=== PATIENT | female | born 1955 | race Caucasian/White ===

== ENCOUNTER 2019-11-17 00:46 | Day surgery (SDC) | payer MEDICARE, OTHER, SELFPAY ==
[2019-11-11 10:37] VITALS: BMI 29.9
[2019-11-17 08:50] VITALS: BP 158/84; PULSE 81; RESP 14; TEMP 37; O2SAT 94; BMI 28.5
--- NOTE | 2019-11-17 09:02 | PM.HPGS ---
History of Present Illness History of Present Illness Consent: Risks, benefits, and alternatives have been discussed and questions answered. Patient agrees to proceed with procedure. Chief complaint: GERD Narrative: Ewelina Codnon is a 64 year old W female referred for EGD for a 4 week history of postprandial nausea without vomiting. Patient with occasional heartburn. No melena. Patient does take prune 25 mg aspirin on daily basis. She is on multiple medicines with be outlined below. She states she has never had a gastroscopy in the past. Patient was last seen by myself July 2019. Patient went colonoscopy at that time which was normal. Meds Home Medications and Allergies Home Medications Medication Instructions Recorded Confirmed Type aspirin 325 mg PO DAILY 11/11/19 11/17/19 History atorvastatin 40 mg PO DAILY 11/11/19 11/17/19 History fenofibric acid (choline) 135 mg PO DAILY 11/11/19 11/17/19 History fluticasone propionate [Flonase 1 spray INTRANASAL DAILY 11/11/19 11/17/19 History Allergy Relief] levothyroxine 50 mcg PO DAILY 11/11/19 11/17/19 History lisinopril 2.5 mg PO DAILY 11/11/19 11/17/19 History lorazepam 1 mg PO TID PRN 11/11/19 11/17/19 History pantoprazole 40 mg PO BID 11/11/19 11/17/19 History trazodone 100 mg PO DAILY 11/11/19 11/17/19 History venlafaxine 150 mg PO DAILY 11/11/19 11/17/19 History Allergies Allergy/AdvReac Type Severity Reaction Status Date / Time No Known Allergies Allergy Verified 11/17/19 08:47 Vital Signs Vital Signs - 24 hr 11/17/19 08:50 Temperature 37.0 C Pulse Rate 81 Respiratory Rate 14 Blood Pressure 158/84 H Pulse Oximetry 94 Exam Const: Orientation/consciousness: patient oriented x3 Resp: Auscultation: clear to auscultation bilaterally Cardio: Rate: regular rate Rhythm: regular rhythm Heart sounds: no murmurs GI: GI Palp: Yes Soft to palpation, No Tenderness to palpation present (GI), Yes No hepatosplenomegaly present and No Palpable mass present Auscultation: normal bowel sounds Neuro: General: patient oriented x3 and no focal motor deficits Extrem: General: no pedal edema Assessment and Plan Additional Plan EGD for evaluation of postprandial nausea/ indigestion.
[2019-11-17] MEDS: LACTATED RINGERS 1,000 ML 150 ML IV CONT (09:08)
--- NOTE | 2019-11-17 09:21 | WPDANESEPPF ---
Anes - Initial Pre Proc Eval Procedure: Operation Date: 11/17/19 10:00 Proposed Procedures p Esophagogastroduodenoscopy - Silvano Jones MD Date/Time: 11/17/19 09:21 Surgeon: Silvano Jones MD Pre Op Diagnosis: GERD Patient Data Age: 64 Gender: F Height: 5 ft 4 in Weight: 75.3 kg Last Vital Signs Temp 37.0 C 11/17/19 08:50 Pulse 81 11/17/19 08:50 Resp 14 11/17/19 08:50 BP 158/84 H 11/17/19 08:50 Pulse Ox 94 11/17/19 08:50 Allergies Allergy/AdvReac Type Severity Reaction Status Date / Time No Known Allergies Allergy Verified 11/17/19 08:47 Home Medications Medication Instructions Recorded Confirmed Type aspirin 325 mg PO DAILY 11/11/19 11/17/19 History atorvastatin 40 mg PO DAILY 11/11/19 11/17/19 History fenofibric acid (choline) 135 mg PO DAILY 11/11/19 11/17/19 History fluticasone propionate [Flonase 1 spray INTRANASAL DAILY 11/11/19 11/17/19 History Allergy Relief] levothyroxine 50 mcg PO DAILY 11/11/19 11/17/19 History lisinopril 2.5 mg PO DAILY 11/11/19 11/17/19 History lorazepam 1 mg PO TID PRN 11/11/19 11/17/19 History pantoprazole 40 mg PO BID 11/11/19 11/17/19 History trazodone 100 mg PO DAILY 11/11/19 11/17/19 History venlafaxine 150 mg PO DAILY 11/11/19 11/17/19 History Patient hx anesthesia problems: none Family hx anesthesia problems: none PMFSH Past Medical History Medical History Anxiety Depression GERD (gastroesophageal reflux disease) Hyperlipidemia Hypertension Hypothyroid Anes - Eval Final PreProcedure Day of Procedure 11/17/19 09:21 Patient weight: overweight Heart: regular rate and rhythm Lungs: clear to auscultation Airway: Mallampati scale class II Neurological: alert and oriented Last oral intake: >/= 8 hours ASA classification: III Emergent: no Anesthetic plan: proceed Anesthesia type and monitoring: general GIVS and standard monitoring Informed Consent: The patient's anesthetic plan and its attendant risks and benefits were discussed with the patient/family/POA. Questions were solicited and answers provided to the satisfaction of the patient/family/POA.
[2019-11-17 09:57] VITALS: BP 140/79; PULSE 65; RESP 22; O2SAT 99
[2019-11-17 10:07] VITALS: BP 161/88; PULSE 58; RESP 22; O2SAT 99
[2019-11-17 10:17] VITALS: BP 173/83; PULSE 61; RESP 21; O2SAT 99
== END 2019-11-17 10:34 | disposition home or self-care (01) ==
PROVIDERS: PCP Internal Medicine; Visit Provider Internal Medicine Gastroenterology
PROC: 0DJ08ZZ Inspection of Upper Intestinal Tract, Via Natural or Artificial Opening Endoscopic (ICD-10-PCS; CPT 43235; principal; 2019-11-17 10:00)
DX: K21.0 Gastro-esophageal reflux disease with esophagitis (principal); K29.50 Unspecified chronic gastritis without bleeding; Z79.82 Long term (current) use of aspirin
CPT/HCPCS: 43239; 88305; J2704; J7120

== ENCOUNTER 2019-11-24 10:54 | Outpatient (CLI) | payer MEDICARE, OTHER, SELFPAY ==
--- NOTE | ~2019-11-24 | US_ITS ---
EXAMINATION: US right upper quadrant EXAM DATE: 11/24/2019 11:44 INDICATION: Dyspepsia. TECHNIQUE: Multiple grayscale and Doppler images of the abdomen right upper quadrant were obtained (b y a technologist who performed the scan) and subsequently reviewed. Correlation is made to kidney ult rasound 01/12/2014. FINDINGS: The pancreatic head and body are normal in appearance. The pancreatic tail is not visualized. The l iver has normal echogenicity and contour. Anechoic approximately 2 cm liver region consistent with c yst. There is no evidence of intrahepatic biliary duct dilation. Portal venous flow was seen in the hepatopedal, normal direction and has normal Doppler waveform. No right-sided hydronephrosis. Common bile duct measures 3 mm, which is normal. The gallbladder wall is normal in thickness, with ex pected amount of distention. No sonographic evidence of pericholecystic fluid. There is no cholelit hiases. Technologist performing exam reports patient did not demonstrate sonographic Valladares's sign. Please note that this sign is less reliable in patients who have received pain medication. IMPRESSION: 1. Unremarkable abdominal ultrasound exam. Reviewed, dictated and finalized at location A. 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
== END 2019-11-24 10:55 | disposition home or self-care (01) ==
LOC: ANHIMG 11:03
PROVIDERS: PCP Internal Medicine; Visit Provider Internal Medicine Gastroenterology
DX: R10.13 Epigastric pain (principal)
CPT/HCPCS: 76705

== ENCOUNTER 2020-04-21 10:49 | Emergency (ER) | payer MEDICARE, OTHER, SELFPAY ==
[2020-04-21 11:04] VITALS: BP 155/83; PULSE 89; RESP 16; TEMP 37.1; O2SAT 98
--- NOTE | 2020-04-21 11:10 | ED.GENADULT ---
HPI - General Adult General Chief complaint: Extremity Injury, Lower Stated complaint: Injury left leg Time Seen by Provider: 04/21/20 11:10 Source: patient and RN notes reviewed Mode of arrival: ambulatory Limitations: no limitations History of Present Illness HPI narrative: 64-year-old female presents with complaints of left anterior leg, bruising, swelling, and pain for the past 1.5 weeks. Tyenol intermittently, last this morning at 06:00 with some relief. Ewelina says she hit her leg on a coffee table and has been walking around yard for exercise, went to [place] yesterday which increased her pain. Denies radiation of pain. No numbness or tingling or bleeding. No swelling. No loss of mobility. Exacerbating factor consist of bearing weight to leg while walking. Denies recent travel or long car rides. History of DVT or PE. No chest pain or dyspnea. Postmenopausal. Remains active. The patient reports she have not been diagnosed with COVID-19. The patient reports she is not waiting for the results of a COVID-19 lab test. The patient reports she do not have fever, chills, weakness, fatigue, or myalgia. The patient reports she do not have a new or worsening cough or shortness of breath. Denies chest pain. The patient reports she do not have any rhinorrhea, congestion, sore throat, nausea, vomiting, abdominal pain, and diarrhea. Tolerating po intake well. Denies recent traveling. Denies concerns for COVID-19 or exposures been home with limited outdoor exposure except for essential household needs and return home. At this time, patient is not suspected of having COVID-19. Some parts of this dictation were generated by voice recognition software and may contain typographical and/or grammatical inaccuracies. Related Data Home Medications Medication Instructions Recorded Confirmed aspirin 325 mg PO DAILY 04/21/20 04/21/20 atorvastatin [Lipitor] 40 mg PO DAILY 04/21/20 04/21/20 fenofibrate micronized 134 mg PO DAILY 04/21/20 04/21/20 levothyroxine 50 mcg PO DAILY 04/21/20 04/21/20 lisinopril [Zestril] 10 mg PO DAILY 04/21/20 04/21/20 lorazepam [Ativan] 2 mg PO BID 04/21/20 04/21/20 pantoprazole [Protonix] 40 mg PO BID 04/21/20 04/21/20 trazodone 100 mg PO BID 04/21/20 04/21/20 venlafaxine [Effexor XR] 300 mg PO HS 04/21/20 04/21/20 Allergies Allergy/AdvReac Type Severity Reaction Status Date / Time No Known Allergies Allergy Verified 04/21/20 11:12 Review of Systems Review of Systems: Narrative: CONSTITUTIONAL: Denies fever, chills, sweats. EYES: Denies visual changes, redness, discharge. ENT: Denies rhinorrhea, congestion, sore throat, otalgia. CARDIOVASCULAR: Denies chest pain, palpitations, edema. RESPIRATORY: Denies dyspnea, wheezing, cough. GASTROINTESTINAL: Denies abdominal pain, nausea, vomiting, diarrhea. GENITOURINARY: Denies dysuria, hematuria, abnormal discharge. SKIN: Denies rash or itching. MUSCULOSKELETAL: Denies acute back pain or myalgia. Complains of LT anterior leg bruising, pain, and swelling. NEUROLOGIC: Denies numbness or focal weakness. PSYCHIATRIC: Denies anxiety or depression. All other systems reviewed are negative, except as documented in HPI and below. [facility] Past Medical History Medical History (Updated 04/22/20 @ 00:00 by Background Daemon) Anxiety Depression GERD (gastroesophageal reflux disease) Hyperlipidemia Hypertension Hypothyroid Surgical History Surgical History (Updated 04/21/20 @ 11:26 by MANOHAR Crouch) History of left knee surgery Family History Family History (Updated 04/21/20 @ 11:26 by MANOHAR Crouch) Father Heart disease Acute myocardial infarction Mother Heart disease Social History Social History (Updated 04/21/20 @ 11:28 by MANOHAR Crouch) Smoking status: Former smoker Smoking end date: 12/20/19 Alcohol intake: former Alcohol use details: cleaned for 7 years Substance use: current Gay
== END 2020-04-21 11:37 | disposition home or self-care (01) ==
PROVIDERS: Emergency Provider Nurse Practitioner Family; PCP Internal Medicine
DX: S80.12XA Contusion of left lower leg, initial encounter (principal); W22.8XXA Striking against or struck by other objects, initial encounter; I10 Essential (primary) hypertension; E03.9 Hypothyroidism, unspecified
CPT/HCPCS: 99213; G0463

== ENCOUNTER → 2020-07-10 11:29 | Outpatient (CLI) | payer MEDICARE, OTHER, SELFPAY ==
--- NOTE | ~2020-07-10 | MM_ITS ---
EXAMINATION: MM screening alycia BI w kota HISTORY: Screening mammogram TECHNIQUE: Craniocaudal and mediolateral oblique 3-D tomosynthesis images were obtained and synthetic 2-D images were generated. CAD analysis was submitted and interpreted. COMPARISON: 05/08/2019, 02/02/2018, 12/24/2016 bilateral digital screening mammogram examinations BREAST PARENCHYMAL COMPOSITION: There are scattered areas of fibroglandular density. FINDINGS: Scattered bilateral benign calcifications. There is no evidence of suspicious mass, calcifi cation, or architectural distortion to suggest malignancy in either breast. There has been no suspici ous interval change. IMPRESSION: 1. No mammographic evidence of malignancy. 2. Recommend routine screening mammography in one year. BI-RADS Category 2: Benign finding(s). Reviewed, dictated and finalized at location A.
== END ==
PROVIDERS: Visit Provider Obstetrics & Gynecology Gynecology
DX: Z12.31 Encounter for screening mammogram for malignant neoplasm of breast (principal)
CPT/HCPCS: 77063; 77067

== ENCOUNTER → 2021-07-12 10:12 | Outpatient (CLI) | payer MEDICARE, OTHER, SELFPAY ==
--- NOTE | ~2021-07-12 | DEXA_ITS ---
Bone Density Report Name: Ewelina Condon Age: 65 Sex: Female Ethnicity: White Date of : 1955 Indication: postmenopausal osteoporosis; height loss; Referring Provider: ANGELICA RODRIGUEZ Study: Bone densitometry was performed. Exam Date: July 12, 2021 Accession number: [id number] Bone Density: Region BMD T-score Z-score Classification AP Spine (L3, L4) 0.783 -2.9 -1.1 Osteoporosis Femoral Neck (Left) 0.629 -2.0 -0.5 Osteopenia Total Hip (Left) 0.934 -0.1 1.1 Normal Femoral Neck (Right) 0.776 -0.7 0.8 Normal Total Hip (Right) 0.883 -0.5 0.7 Normal Total Hip Mean 0.909 -0.3 0.9 Normal World Health Organization criteria for BMD impression classify patients as: Normal (T-score at or above -1.0), Osteopenia (T-score between -1.0 and -2.5), or Osteoporosis (T-score at or below -2.5). 10-year Fracture Risk: FRAX not reported because: Some T-score for Spine Total or Hip Total or Femoral Neck at or below -2.5 Previous Exams: Region Exam Age BMD T-score BMD Change BMD Change Date g/cm2 vs Baseline vs Previous AP Spine(L3, L4) 07/12/2021 65 0.783 -2.9 -0.151* -0.016 04/21/2019 63 0.800 -2.7 -0.135* -0.134 12/24/2016 61 0.933 -1.5 -0.002 -0.002 02/22/2013 57 0.935 -1.5 Total Hip(Left) 07/12/2021 65 0.934 -0.1 0.108* 0.011 04/21/2019 63 0.923 -0.2 0.097* -0.064 12/24/2016 61 0.987 0.4 0.161 0.161 02/22/2013 57 0.826 -0.9 Total Hip(Right) 07/12/2021 65 0.883 -0.5 0.057* 0.050* 04/21/2019 63 0.833 -0.9 0.007 -0.038 12/24/2016 61 0.872 -0.6 0.045 0.045 02/22/2013 57 0.826 -0.9 *Denotes significance at 95% confidence level, LSC for AP Spine = 0.022 g/cm2, LSC for Total Hip = 0.027 g/cm2 Clinical Information Provided by Patient: Has used the following medications: Prolia (i.e. denosumab), Vitamin D, Calcium Patient maximum height was 64 Menopause Age: 52 No regular weight bearing exercise Does not regularly consume dairy products Drinks caffeinated beverages Onset of menses at age 12 Number of children 2 Impression: The patient has osteoporosis, based on the Total Spine T-score. No significant bone loss was observed. Discussion: INCREASED RISK OF FRACTURE. BONE DENSITY IS UNDESIRABLY LOW AT ONE OR MORE SKELETAL SITES, CONSIS
--- NOTE | ~2021-07-12 | MM_ITS ---
EXAMINATION: MM screening alycia BI w kota HISTORY: Screening mammogram TECHNIQUE: Craniocaudal and mediolateral oblique 3-D tomosynthesis images were obtained and synthetic 2-D images were generated. CAD analysis was submitted and interpreted. COMPARISON: 07/10/2020, 05/08/2019, 02/02/2018 bilateral digital screening mammogram examinations BREAST PARENCHYMAL COMPOSITION: There are scattered areas of fibroglandular density. FINDINGS: Again noted are scattered bilateral benign calcifications. There is no evidence of suspicio us mass, calcification, or architectural distortion to suggest malignancy in either breast. There has been no suspicious interval change. IMPRESSION: 1. No mammographic evidence of malignancy. 2. Recommend routine screening mammography in one year. BI-RADS Category 2: Benign finding(s). Reviewed, dictated and finalized at location A.
== END ==
PROVIDERS: Visit Provider Obstetrics & Gynecology Gynecology
DX: Z12.31 Encounter for screening mammogram for malignant neoplasm of breast (principal); Z78.0 Asymptomatic menopausal state; M81.0 Age-related osteoporosis without current pathological fracture; M85.852 Other specified disorders of bone density and structure, left thigh
CPT/HCPCS: 77063; 77067; 77080

== ENCOUNTER → 2022-10-16 14:44 | Outpatient (CLI) | payer MEDICARE, SELFPAY ==
--- NOTE | ~2022-10-16 | MM_ITS ---
EXAMINATION: MM screening alycia BI w kota HISTORY: Screening mammogram TECHNIQUE: Craniocaudal and mediolateral oblique 3-D tomosynthesis images were obtained and synthetic 2-D images were generated. CAD analysis was submitted and interpreted. COMPARISON: 07/12/2021, 07/10/2020, 04/21/2019 bilateral screening mammogram examinations BREAST PARENCHYMAL COMPOSITION: There are scattered areas of fibroglandular density. FINDINGS: Scattered bilateral benign calcifications. There is no evidence of suspicious mass, calcifi cation, or architectural distortion to suggest malignancy in either breast. There has been no suspici ous interval change. IMPRESSION: 1. No mammographic evidence of malignancy. 2. Recommend routine screening mammography in one year. BI-RADS Category 2: Benign finding(s). Reviewed, dictated and finalized at location A. SSORIES REPAIRER
== END ==
PROVIDERS: PCP Internal Medicine; Visit Provider Obstetrics & Gynecology Gynecology
DX: Z12.31 Encounter for screening mammogram for malignant neoplasm of breast (principal)
CPT/HCPCS: 77063; 77067

== ENCOUNTER → 2023-09-30 11:00 | Outpatient (CLI) | payer MEDICARE, BC, SELFPAY ==
--- NOTE | ~2023-09-30 | DEXA_ITS ---
Bone Density Report Name: SAL HERNANDEZ Age: 68 Sex: Female Ethnicity: White Date of : 1955 Indication: postmenopausal osteoporosis; monitoring treatment; height loss; Referring Provider: ANGELICA RODRIGUEZ Study: Bone densitometry was performed. Exam Date: September 30, 2023 Accession number: [id number] Bone Density: Region BMD T-score Z-score Classification AP Spine (L3, L4) 0.892 -1.9 0.0 Osteopenia Femoral Neck (Left) 0.630 -2.0 -0.4 Osteopenia Total Hip (Left) 0.924 -0.1 1.1 Normal Femoral Neck (Right) 0.776 -0.7 0.9 Normal Total Hip (Right) 0.924 -0.1 1.1 Normal Total Hip Mean 0.924 -0.1 1.1 Normal World Health Organization criteria for BMD impression classify patients as: Normal (T-score at or above -1.0), Osteopenia (T-score between -1.0 and -2.5), or Osteoporosis (T-score at or below -2.5). 10-year Fracture Risk: FRAX not reported because: Treated for osteoporosis Previous Exams: Region Exam Age BMD T-score BMD Change BMD Change Date g/cm2 vs Baseline vs Previous AP Spine(L3, L4) 09/30/2023 68 0.892 -1.9 -0.042 0.109 07/12/2021 65 0.783 -2.9 -0.151* -0.016 04/21/2019 63 0.800 -2.7 -0.135* -0.134 12/24/2016 61 0.933 -1.5 -0.002 -0.002 02/22/2013 57 0.935 -1.5 Total Hip(Left) 09/30/2023 68 0.924 -0.1 0.098 -0.010 07/12/2021 65 0.934 -0.1 0.108* 0.011 04/21/2019 63 0.923 -0.2 0.097* -0.064 12/24/2016 61 0.987 0.4 0.161 0.161 02/22/2013 57 0.826 -0.9 Total Hip(Right) 09/30/2023 68 0.924 -0.1 0.098 0.041 07/12/2021 65 0.883 -0.5 0.057* 0.050* 04/21/2019 63 0.833 -0.9 0.007 -0.038 12/24/2016 61 0.872 -0.6 0.045 0.045 02/22/2013 57 0.826 -0.9 *Denotes significance at 95% confidence level, LSC for AP Spine = 0.022 g/cm2, LSC for Total Hip = 0.027 g/cm2 Clinical Information Provided by Patient: Is being treated for osteoporosis Has used the following medications: Prolia (i.e. denosumab), LEVOTHYROXINE Patient maximum height was 64.0 Menopause Age: 52 No regular weight bearing exercise Does not regularly consume dairy products Drinks caffeinated beverages Onset of menses at age 12 Number of children 2 Impression: The patient has lo
== END ==
PROVIDERS: PCP Internal Medicine; Visit Provider Obstetrics & Gynecology Gynecology
DX: M81.0 Age-related osteoporosis without current pathological fracture (principal); M85.89 Other specified disorders of bone density and structure, multiple sites; Z78.0 Asymptomatic menopausal state
CPT/HCPCS: 77080

== ENCOUNTER → 2023-10-21 10:17 | Outpatient (CLI) | payer MEDICARE, BC, SELFPAY ==
--- NOTE | ~2023-10-21 | MM_ITS ---
EXAMINATION: MM screening alycia BI w kota HISTORY: Screening mammogram TECHNIQUE: Craniocaudal and mediolateral oblique 3-D tomosynthesis images were obtained and synthetic 2-D images were generated. CAD analysis was submitted and interpreted. COMPARISON: 10/16/2022, 07/12/2021, 07/10/2020 BREAST PARENCHYMAL COMPOSITION: There are scattered areas of fibroglandular density. FINDINGS: Scattered benign-appearing calcifications are present. No suspicious mass, calcification, o r architectural distortion are identified in either breast to suggest malignancy. There has been no s uspicious interval change. IMPRESSION: 1. No mammographic evidence of malignancy. 2. Recommend routine screening mammography in one year. BI-RADS Category 2: Benign finding(s). Reviewed, dictated and finalized at location A. 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
== END ==
PROVIDERS: PCP Obstetrics & Gynecology Gynecology; Visit Provider Obstetrics & Gynecology Gynecology
DX: Z12.31 Encounter for screening mammogram for malignant neoplasm of breast (principal)
CPT/HCPCS: 77063; 77067

== ENCOUNTER 2024-08-25 11:21 | Outpatient (CLI) | payer MEDICARE, SELFPAY ==
--- NOTE | ~2024-08-25 | XR_ITS ---
Right Knee Technique: AP, lateral, and sunrise views were obtained. Clinical History: Pain Findings: No fracture or dislocation is seen. There is medial compartment narrowing. There is moderat e to advanced tricompartmental osteophyte formation. There is patellofemoral compartment narrowing.. Soft tissues are unremarkable. No joint effusion is seen. Impression: Advanced tricompartment osteoarthritis, as detailed above. Reviewed, dictated and finalized at location M. E ENGINEER Impression: Advanced tricompartment osteoarthritis, as detailed above.
== END 2024-08-25 11:22 | disposition home or self-care (01) ==
PROVIDERS: PCP Internal Medicine; Visit Provider Physician Assistant Surgical
DX: M17.11 Unilateral primary osteoarthritis, right knee (principal)
CPT/HCPCS: 73564

== ENCOUNTER 2024-12-13 10:33 | Outpatient (CLI) | payer MEDICARE, SELFPAY ==
--- NOTE | ~2024-12-13 | CT_ITS ---
EXAMINATION: CT LE RT wo con DATE: 12/13/2024 10:54 INDICATION: Right knee osteoarthritis. Preop. TECHNIQUE: Computed tomography (CT) of the right lower limb was performed without intravenous contras t. Automated exposure control and iterative reconstruction technique were employed. The dose-length p roduct was 1759.84 mGy-cm. COMPARISON: Right knee radiographs 08/25/2024 FINDINGS: There is varus angulation at the knee. There is severe hallux valgus. There is varus angula tion at second metatarsophalangeal joint. No fracture. There is mild right hip osteoarthritis. Right knee demonstrates severe osteoarthritis of the medial and patellofemoral compartments and moderate os teoarthritis of lateral compartment. There is a moderate-sized knee joint effusion. There is a small Henderson's cyst. IMPRESSION: 1. Severe right knee osteoarthritis. 2. Moderate-sized right knee joint effusion. 3. Small right Henderson's cyst. Reviewed, dictated and finalized at location A. M TAKER
--- OUTSIDE RECORDS SUMMARY | 2024-12-13 11:57 | XMS_ITS | Encounter Summary ---
Author Organization [facility] [facility] Address [address] [place] [address] Phone Care Team Providers Care Adjunct Instructor Of Women'S Studies Name Role Phone Unavailable Primary Care Provider Unavailabl e Reason for Visit * Reason Onset Date Comments Med Refill 08/17/2024 Encounter Details Date Type Department Care Team (Late st Contact Info) Description 08/17/2024 Refill [place] [employer] [facility] [address] [place] [address] Preeti Jensen CMA [address] [facility] [address] [place] [address] Social History Tobacco Use Types Packs/Day Years Used Date Smoking Tobacco: Former Cigarettes Q uit: 2020 Smokeless Tobacco: Never Alcohol Use Standard Drinks/Week Comments No 0 (1 standard drink = 0.6 oz pur e alcohol) Comments Unknown Sex and Gender Information Value Date Recorded Sex Assigned at Not on file Legal Sex Female 2:52 PM EDT Gender Identity Not on file Sexual Orientation Not on file documented as of this encounter Plan of Treatment Upcoming Encounters Date Type Department Care Team (Late st Contact Info) Description 12/14/2024 11:00 AM SENIOR WATER RESOURCES 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
--- OUTSIDE RECORDS SUMMARY | 2024-12-13 11:57 | XMS_ITS | CONTINUITY OF CARE DOCUMENT ---
Author Name marco a strickland Address Unknown Organization [facility] Address [address] [address] [address] [place] [address] Phone [phone] Care Team Providers Care Fishing Rod Trimmer Name Role Phone Ethan VALLES, Gallo Unavailable [phone] BRIA VALLES, ARCHIE Unavailable [phone] ARCHIE FRASER MD Unavailable [phone] PROBLEMS Condition Status Date Provider Notes Blood glucose abnormal active Brad Starkey RN CAD active Gallo Long MD HTN-07/28 ECHO EF 55 3 ECH O EF 60 completed - Homero Key MD OBESITY active Gallo Long MD CAROTID-12/26 CAROTID UNCHANG E 08/24 CAROTID NEG completed - Homero Key MD CHEST PAIN-07/28 NUC NEG NUC NEG completed - Homero Key MD TOBACCO ABUSE active ? Gallo Long MD Hyperlipidemia active Ewelina Ricks RN AMI, SUBENDOCARDIAL;100% DX 03 ONLY active Homero Key MD FAMILY HISTORY OF HEART DISEASE active Rosemarie Key MD DIASTOLIC DYSFUNCTION active Gallo Long MD ISCHEMIA;NEG NUC 2009 completed - Gallo Long MD CHEST PAIN active Gallo Long MD SNORING; active Homero Key MD Family History Coronary Hear t Disease male < 55: active ? Gallo Long MD ENCOUNTERS Date Type Provider Location Encounter Diag nosis - In-person encounter Office Visit Gallo Long MD [facility] - In-person encounter Office Visit Gallo Long MD [facility] - In-person encounter Office Visit Gallo Long MD [facility] - In-person encounter Office Visit Gallo Long MD [facility] - In-person encounter Office Visit Gallo Long MD [facility] - In-person encounter Office Visit Gallo Long MD [facility] - In-person encounter Office Visit Gallo Long MD [facility] - In-person encounter Office Visit Gallo Long MD [facility] - In-person encounter Office Visit Gallo Long MD [facility] - In-person encounter Office Visit Gallo Long MD [facility] CADOBESITYDIASTOLIC DYSFUNCTIONISCHEMIA;NEG NUC 2010CHEST PAIN - In-person encounter Office Visit Gallo Long MD [facility] - In-person encounter Office Visit Gallo Long MD [facility] - In-person encounter Office Visit Gallo Long MD [facility] Family History Coronary Heart Disease male < 55: - In-person encounter Office Visit Gallo Long MD [facility] - In-person encounter Office Visit Homero Key MD [facility] CADHTN-07/28 ECHO EF 55 3 ECHO EF 60OBESITYCAROTID-12/26 CAROTID UNCHANGE 08/24 CAROTID NEGCHEST PAIN-07/28 NUC NEG 12/24 NUC NEGAMI, SUBENDOCARDIAL;100% DX 03 ONLYFAMILY HISTORY OF HEART DISEASEDIASTOLIC DYSFUNCTIONCHEST PAINSNORING; - In-person encounter Office Visit Gallo Long MD [facility] - In-person encounter Office Visit Gallo Long MD [facility] - In-person encounter Office Visit Gallo Long MD [facility] - In-person encounter Office Visit Gallo Long MD [facility] - In-person encounter Office Visit Gallo Long MD [facility] TOBACCO ABUSEHyperlipidemia - In-person encounter Office Visit Gallo Long MD [facility] - In-person encounter Office Visit Gallo Long MD [facility] VITAL SIGNS Date Observation Value Provider Body Mass Index (Ratio) 32.78 kg/m2 Felice Long MD blood pressure, diastolic 79 mm[Hg] Reina Grace blood pressure, systolic 127 mm[Hg] [place] danellenithin Grace oxygen saturation, oximetry 96 % Stephanie Grace respiratory rate E&M 14 /min Stephanie Grace pulse rate 90 /min Stephanie Grace weight E&M 191 [lb_av] Stephanie Grace height E&M 64 [in_i] [facility] size regular orvillesanket Grace Body Mass Index (Ratio) 34.33 kg/m2 Felice Long MD blood pressure, diastolic 78 mm[Hg] Carrie nkLogmiky blood pressure, systolic 118 mm[Hg] Jennifer kLog blood pressure, cuff size regular Ja rret blood pressure, diastolic 78 mm[Hg] Ja rret blood pressure, systolic 118 mm[Hg] Jar ret pulse rate 76 /min Cliff y weight E&M 200 [lb_av] Cliff y oxygen saturation, oximetry 94 % Cliff respiratory rate E&M 12 /min Cliff height E&M 64 [in_i] Cliff y Body Mass Index (Ratio) 34.43 kg/m2 Felice Long MD blood pressure, diastolic 83 mm[Hg] St ulises Paz blood pressure, systolic 140 mm[Hg] Parish Paz oxygen saturation, oximetry 96 % Veronica Paz respiratory rate E&M 16 /min Veronica jensen pulse rate 83 /min Veronica Paz weight E&M 200.6 [lb_av] Veronica Paz height E&M 64 [in_i] Vreonica Paz Body Mass Index (Ratio) 35.87 kg/m2 Felice Long MD blood pressure, diastolic 80 mm[Hg] Carrie sonLogmiky blood pressure, systolic 126 mm[Hg] Jennifer Souza blood pressure, diastolic 80 mm[Hg] Dominga Hart blood pressure, systolic 126 mm[Hg] Melonie Hart blood pressure, cuff size regular Dominga Hart oxygen saturation, oximetry 96 % Zandra Hart respiratory rate E&M 16 /min Saúl Hart pulse rate 76 /min Meloniejuandaryn puckett weight E&M 209 [lb_av] Zandra puckett height E&M 64 [in_i] Zandra puckett Body Mass Index (Ratio) 33.81 kg/m2 Felice Long MD blood pressure, diastolic 82 mm[Hg] Tao Ceja blood pressure, systolic 140 mm[Hg] Ginger Ceja blood pressure, cuff size regular Tao Ceja pulse rate 83 /min Luciana burgos respiratory rate E&M 16 /min Luciana Ceja oxygen saturation, oximetry 96 % Luciana Ceja weight E&M 197 [lb_av] Luciana burgos height E&M 64 [in_i] Luciana burgos Body Mass Index (Ratio) 30.55 kg/m2 Felice Long MD blood pressure, cuff size regular Tao Ceja blood pressure, diastolic 70 mm[Hg] Tao Ceja blood pressure, systolic 110 mm[Hg] Ginger Ceja pulse rate 97 /min Luciana burgos oxygen saturation, oximetry 95 % Luciana Ceja respiratory rate E&M 16 /min Luciana Ceja weight E&M 178 [lb_av] Luciana burgos height E&M 64 [in_i] Luciana burgos Body Mass Index (Ratio) 34.67 kg/m2 Felice Long MD blood pressure, diastolic 80 mm[Hg] Da alison Elle blood pressure, systolic 128 mm[Hg] Dac ia Elle oxygen saturation, oximetry 91 % Jesika Elle respiratory rate E&M 18 /min Jesika V oss pulse rate 83 /min Jesika Elle weight E&M 202 [lb_av] Jesika Elle height E&M 64 [in_i] Jesika Elle Body Mass Index (Ratio) 36.52 kg/m2 Felice Long MD blood pressure, resting No Ewelina Lomas blood pressure, diastolic 90 mm[Hg] Rodriguez Lomas blood pressure, systolic 139 mm[Hg] Erika Lomas oxygen saturation, oximetry 95 % Usama Lomas respiratory rate E&M 20 /min Fidel Lomas pulse rate 96 /min Usama diana weight E&M 212.8 [lb_av] Usama baxter height E&M 64 [in_i] Usama diana blood pressure, diastolic 90 mm[Hg] Rodriguez Lomas blood pressure, systolic 142 mm[Hg] Erika Lomas pulse rate 102 /min Usama diana oxygen saturation, oximetry 94 % Usama Lomas respiratory rate E&M 16 /min Fidel Lomas Body Mass Index (Ratio) 37.45 kg/m2 Ewelina Lomas weight E&M 218.2 [lb_av] Usama baxter blood pressure, diastolic 80 mm[Hg] Me mansfield Charles blood pressure, systolic 131 mm[Hg] Antoinette morejon Charles pulse rate 92 /min Cheri Charles oxygen saturation, oximetry 95 % Cheri Charles respiratory rate E&M 15 /min Cheri Charles Body Mass Index (Ratio) 34.67 kg/m2 Iveth peterson Charles weight E&M 202 [lb_av] Cheri Charles Body Mass Index (Ratio) 34.33 kg/m2 Anea rola [place] blood pressure, diastolic 85 mm[Hg] An eatris [place] blood pressure, systolic 127 mm[Hg] Ane atris [place] pulse rate 94 /min Aneatris Brown oxygen saturation, oximetry 98 % Aneatris [place] respiratory rate E&M 18 /min Aneatri s [place] weight E&M 200 [lb_av] Aneatris [place] Body Mass Index (Ratio) 33.81 kg/m2 Kanwala rola Brink blood pressure, diastolic 75 mm[Hg] An ad Brink blood pressure, systolic 106 mm[Hg] Ane atris [place] pulse rate 63 /min Aneatris [place] oxygen saturation, oximetry 91 % Aneatris [place] respiratory rate E&M 17 /min Aneatri s [place] weight E&M 197 [lb_av] Aneatris [place] Body Mass Index (Ratio) 32.95 kg/m2 Guillermo Brink blood pressure, diastolic 88 mm[Hg] An ad Brink blood pressure, systolic 124 mm[Hg] Ane atris [place] pulse rate 95 /min Aneatris [facility] oxygen saturation, oximetry 97 % Kanwalatris [place] respiratory rate E&M 18 /min Aneatri s [facility] weight E&M 192 [lb_av] Kanwalatris [facility] blood pressure, diastolic 89 mm[Hg] Uday Starkey RN blood pressure, systolic 135 mm[Hg] Brad Starkey RN pulse rate 86 /min Brad Starkey RN oxygen saturation, oximetry 95 % Brad Starkey RN respiratory rate E&M 18 /min Brad scales RN Body Mass Index (Ratio) 32.90 kg/m2 Brad Starkey RN weight E&M 191 [lb_av] Brad Starkey RN blood pressure, diastolic 81 mm[Hg] Uday Starkey RN blood pressure, systolic 132 mm[Hg] Brad Starkey RN pulse rate 96 /min Brad Starkey RN oxygen saturation, oximetry 98 % Brad Starkey RN respiratory rate E&M 16 /min Brad scales RN Body Mass Index (Ratio) 32.73 kg/m2 Brad Starkey RN weight E&M 190 [lb_av] Brad Starkey RN Body Mass Index (Ratio) 27.56 kg/m2 Chavira i Roly blood pressure, diastolic 74 mm[Hg] Kole thompson Roly blood pressure, systolic 119 mm[Hg] Yulissa acosta Roly pulse rate 76 /min Stephanie Cristino sutton oxygen saturation, oximetry 98 % Stephanie Roly respiratory rate E&M 17 /min Stephanie G agnes weight E&M 160 [lb_av] Stephanie sutton height E&M 64 [in_i] Stephanie sutton blood pressure, diastolic 60 mm[Hg] Fonseca blood pressure, systolic 100 mm[Hg] Fan Soto pulse rate 90 /min Doug Soto oxygen saturation, oximetry 99 % Doug Soto respiratory rate E&M 16 /min Doug Soto weight E&M 150 [lb_av] Doug Soto blood pressure, diastolic 74 mm[Hg] Rodriguez adams O'Kasi blood pressure, systolic 106 mm[Hg] Erika hester O'Kasi pulse rate 102 /min Annie O'Kasi oxygen saturation, oximetry 96 % Annie O'Kasi respiratory rate E&M 18 /min Annie O'Kasi weight E&M 177 [lb_av] Annie O'Kasi blood pressure, diastolic 80 mm[Hg] Rodriguez rsha O'Kasi blood pressure, systolic 116 mm[Hg] Erika sha O'Kasi pulse rate 95 /min Annie O'Kasi oxygen saturation, oximetry 99 % Annie O'Kasi respiratory rate E&M 16 /min Annie Thomas weight E&M 183 [lb_av] Annie Ady'Kasi blood pressure, diastolic 80 mm[Hg] Uday Starkey RN blood pressure, systolic 124 mm[Hg] Brad Lalito SEWELL pulse rate 105 /min Brad Starkey RN oxygen saturation, oximetry 98 % Brad Starkey RN respiratory rate E&M 16 /min Bard scales RN weight E&M 15 [lb_av] Brad Starkey RN blood pressure, diastolic 73 mm[Hg] Uday Starkey RN blood pressure, systolic 110 mm[Hg] Brad Starkey RN pulse rate 110 /min Brad Starkey RN oxygen saturation, oximetry 96 % Brad Starkey RN respiratory rate E&M 16 /min Brad scales RN weight E&M 192 [lb_av] Brad Starkey RN blood pressure, diastolic 77 mm[Hg] Uday Starkey RN blood pressure, systolic 120 mm[Hg] Brad Starkey RN pulse rate 89 /min Brad Starkey RN oxygen saturation, oximetry 98 % Brad Starkey RN respiratory rate E&M 18 /min Brad scales RN weight E&M 179 [lb_av] Brad Starkey RN ALLERGIES No Known Drug Allergies RESULTS Date Observation Value Provider Reference Range Interpretation Location B-type natriuretic peptide 5 pg/mL [facility] <100 Normal C-reactive protein, by highly sensitive test 2.6 mg/L [facility] Normal hemoglobin A1C, blood, as % of total hemoglobin 5.8 % OF TOTAL HGB [facility] <5.7 High C-reactive protein, by highly sensitive test 3.0 mg/L [facility] Normal NT-pro BNP 31 [facility] Normal calcium, serum 9.7 mg/dL [facility] 8.6-10.4 Normal carbon dioxide, venous blood 28 mmol/L [facility] 20-32 Normal chloride, serum 101 mmol/L [facility] 98-110 Normal potassium, serum 4.5 mmol/L [facility] 3.5-5.3 Normal sodium, serum 136 mmol/L [facility] 135-146 Normal urea nitrogen/creatinine ratio, serum 11 (calc) [facility] 6-22 Normal creatinine, serum 1.37 mg/dL [facility] 0.50-1.05 High urea nitrogen, blood 15 mg/dL [facility] 7-25 Normal blood glucose, random 74 mg/dL [facility] 65-99 Normal microalbumin/creatin ine ratio, urine 8 MCG/MG CREAT [facility] <30 Normal microalbumin/total urine volume 5 mg/L [facility] Units converted. See lab report for original value. Normal creatinine, random, urine 62 mg/dL [facility] 20-275 Normal platelet count 233 10*3/mm3 [facility] hematocrit, blood 39.0 % [facility] international normalized ratio (INR) 1.0 [facility] creatinine, serum 1.20 mg/dL [facility] potassium, serum 3.3 mmol/L [facility] sodium, serum 138 mmol/L [facility] hemoglobin A1C, blood, as % of total hemoglobin 5.7 % [facility] Normal LDL/HDL (low-density lipoprotein/high-den sity lipoprotein) ratio 0.5 RATIO [facility] 0.2-4.3 Normal VLDL cholesterol 13 mg/dL [facility] 8-41 Normal lipoprotein, beta, serum, point, quantitative, calculated 48 mg/dL [facility] 0-130 Normal cholesterol/HDL ratio, serum, percent 1.6 ratio [facility] 1.5-5.6 Normal HDL cholesterol, serum 99 mg/dL [facility] 65 Normal triglyceride, serum, fasting 67 mg/dL [facility] Normal cholesterol, serum 160 mg/dL [facility] 0-199 Normal thyroid stimulating hormone, serum 0.47 u[IU]/mL Susana Clements platelet count 237 10*3/mm3 [facility] hematocrit, blood 36.5 % [facility] lipoprotein, beta, serum, point, quantitative, calculated 77 mg/dL [facility] cholesterol, serum 178 mg/dL [facility] alanine aminotransferase (SGPT), serum 25 1/L [facility] aspartate aminotransferase (SGOT), serum 27 1/L [facility] creatinine, serum 0.98 mg/dL [facility] potassium, serum 4.3 mmol/L [facility] sodium, serum 140 mmol/L [facility] B-12, serum 250 pg/mL [facility] platelet count 197 10*3/uL [facility] red blood cell distribution width 14.6 % [facility] mean corpuscular hemoglobin concentration, RBC 33.6 g/dL [facility] mean corpuscular hemoglobin, RBC 34.0 pg [facility] mean corpuscular volume, RBC 101.2 fL [facility] hematocrit, blood 36.3 % [facility] hemoglobin, blood 12.2 g/dL [facility] erythrocyte (RBC) count 3.59 10*6/mm3 [facility] monocytes as percent of blood leukocytes 4.9 % [facility] lymphocytes as percent of blood leukocytes 44.5 % [facility] leukocyte count, blood 4.1 10*3/mm3 [facility] globulins, serum, total 2.3 g/dL [facility] Estimated Glomerular Filtration Rate (calc) 54 mL/min/{1 .73_m2} [facility] albumin/globulin ratio, serum 1.9 [facility] protein, total, serum 6.7 g/dL [facility] albumin, serum 4.4 g/dL [facility] bilirubin, serum, total 0.3 mg/dL [facility] alkaline phosphatase, serum 42 1/L [facility] alanine aminotransferase (SGPT), serum 24 1/L [facility] aspartate aminotransferase (SGOT), serum 21 1/L [facility] calcium, serum 9.2 mg/dL [facility] blood glucose, fasting 95 mg/dL [facility] creatinine, serum 1.06 mg/dL [facility] urea nitrogen, blood 13 mg/dL [facility] carbon dioxide, serum, total 21 mmol/L [facility] chloride, serum 112 mmol/L [facility] potassium, serum 4.2 mmol/L [facility] sodium, serum 141 mmol/L [facility] cholesterol/HDL ratio, serum 2.2 [facility] triglyceride, serum, fasting 62 mg/dL [facility] HDL cholesterol, serum 69 mg/dL [facility] LDL cholesterol, serum 74 mg/dL [facility] cholesterol, serum 155 mg/dL [facility] thyroid stimulating hormone, serum 3.62 u[IU]/mL [facility] thyroxine, serum, free 1.0 ng/dL [facility] cholesterol/HDL ratio, serum, percent 2.8 (calc) [facility] (< OR = 5.0) Normal LDL cholesterol, serum 103 MG/DL (CALC) [facility] (<130) Normal triglyceride, serum, fasting 87 mg/dL [facility] (<150) Normal HDL cholesterol, serum 68 mg/dL [facility] (> OR = 46) Normal cholesterol, serum 188 mg/dL [facility] (125-200) Normal lipoprotein, beta, serum, point, quantitative, calculated 114 mg/dL [facility] (0-99) High very low density lipoproteins 24 mg/dL [facility] (5-40) HDL cholesterol, serum 60 mg/dL [facility] (>39) triglyceride, serum, random 120 mg/dL [facility] (0-149) cholesterol, serum 198 mg/dL [facility] (100-199) alanine aminotransferase (SGPT), serum 31 1/L [facility] (0-40) aspartate aminotransferase (SGOT), serum 26 1/L [facility] (0-40) alkaline phosphatase, serum 52 1/L [facility] (25-150) bilirubin, serum, total 0.3 mg/dL [facility] (0.1-1.2) albumin/globulin ratio, serum 2.0 [facility] (1.1-2.5) globulin, serum 2.4 [facility] (1.5-4.5) albumin, serum 4.7 g/dL [facility] (3.5-5.5) protein, total, serum 7.1 g/dL [facility] (6.0-8.5) calcium, serum 9.9 mg/dL [facility] (8.5-10.6) carbon dioxide, venous blood 19 mmol/L [facility] (20-32) Low chloride, serum 106 mmol/L [facility] (97-108) potassium, serum 4.4 mmol/L [facility] (3.5-5.2) sodium, serum 139 mmol/L [facility] (135-145) urea nitrogen/creatinine ratio, serum 13 [facility] (8-27) estimated glomerular filtration rate 45 mL/min [facility] ( >59) Low creatinine, serum 1.26 mg/dL [facility] (0.57-1.00) High urea nitrogen, blood 16 mg/dL [facility] (5-26) blood glucose, random 98 [facility] triglyceride, serum, fasting 91 mg/dL [facility] HDL cholesterol, serum 62 mg/dL [facility] LDL cholesterol, serum 97 mg/dL [facility] cholesterol, serum 177 mg/dL [facility] triglyceride, serum, fasting 195 mg/dL [facility] HDL cholesterol, serum 58 mg/dL [facility] LDL cholesterol, serum 113 mg/dL [facility] cholesterol, serum 210 mg/dL [facility] HISTORY OF MEDICATION USE Medication Status Instructions Dates Provider Indications Com ments atorvastatin 40 mg tablet active Take 1 tablet by mouth every night at bedtime Stephanie Dunham atorvastatin 40 mg tablet completed TAKE 1 TABLET DAILY AT BEDTIME - Stephanie Dunham fenofibric acid (choline) 135 mg capsule,delayed release(DR/EC) active TAKE 1 CAPSULE DAILY Caryl Perez Lexapro 5 mg tablet active [facility] fenofibric acid (choline) 135 mg capsule,delayed release(DR/EC) completed Take 1 capsule by mouth once a day TAKE 1 CAPSULE BY MOUTH DAILY - Marika Theodore atorvastatin 40 mg tablet completed Take 1 tablet by mouth at bedtime TAKE 1 TABLET BY MOUTH DAILY - Cliff fenofibric acid (choline) 135 mg capsule,delayed release(DR/EC) completed TAKE 1 CAPSULE BY MOUTH DAILY - Yazmin Singh RN atorvastatin 40 mg tablet completed TAKE 1 TABLET BY MOUTH DAILY - Yazmin Singh RN CALCIUM+D3 TABLET completed Take 1 tablet once a day - Cliff aripiprazole 2 mg tablet active Take 1 tablet once a day Luciana Ceja Ativan 1 mg tablet active Take 1 tablet once a day Luciana Ceja levothyroxine 50 mcg tablet active Take 1 tablet once a day Luciana Ceja trazodone 100 mg tablet active Take 1 tablet every night Luciana Ceja MIRTAZAPINE 15 MG ORAL TABLET completed at bedtime - Luciana Ceja CARBIDOPA-LEVODOP A TABS completed 1.5 tabs daily - Usama Lomas FERROUS SULFATE 325 (65 Fe) MG ORAL TABLET completed ONE PER DAY - Usama Lomas VITAMIN D TABLET completed twice weekly - Usama Lomas FERROUS SULFATE 325 (65 Fe) MG ORAL TABLET completed ONE PER DAY - Myron Brink lisinopril 10 mg tablet active Take 1 tablet once a day Luciana Ceja ULTRAM 50 MG ORAL TABLET completed 1 every 6 hours as needed for pain - Myron Brink ATENOLOL 25 MG ORAL TABLET completed Take 1 tablet by mouth once a day - Brad Starkey RN venlafaxine 150 mg tablet extended release 24hr active once a day Usama Lomas CHOLESTYRAMINE PACKET completed once daily - Jesika Almeida ASPIRIN 325 MG ORAL TABLET completed ONE TAB. DAILY - Brad Starkey RN MULTIVITAMINS ORAL CAPSULE completed ONE TAB. DAILY - Usama Lomas lorazepam 1 mg tablet active 2 three times a day Luciana Ceja atorvastatin 40 mg tablet completed Take 1 tablet by mouth once a day - Jose Chapman replaces simcor Protonix 40 mg tablet,delayed release (DR/EC) completed 1 tablet once a day - Cliff TOPIRAMATE 100 MG ORAL TABLET completed 2 tabs in AM, 1 tab in PM - Luciana Ceja CHLORPROMAZINE HCL 50 MG ORAL TABLET completed 2 tabs at bedtime - Luciana Ceja fenofibric acid (choline) 135 mg capsule,delayed release(DR/EC) completed Take 1 capsule by mouth once a day - Radha Mahmood SIMCOR 500-20 MG ORAL TABLET EXTENDED RELEASE 24 HOUR completed ONE TAB. DAILY - Brad Forbse RN aspirin 325 mg tablet active 1 tablet once a day Gallo Long MD LAMICTAL 100 MG ORAL TABLET completed - Sil Culver MA ABILIFY TABLET completed 5 mg daily - Sil MORRIS ASPIRIN LOW DOSE TABLET DELAYED RELEASE completed 81 mg daily - Sil Culver MA VYTORIN 10-40 MG ORAL TABLET completed daily - Gallo Long MD MIRTAZAPINE 45 MG ORAL TABLET DISINTEGRATING completed - Doug Soto ALTACE 10 MG ORAL CAPSULE completed ONE TAB. DAILY - Gallo Long MD SOCIAL HISTORY Date Observation Value Provider drug use none Gallo Peterson alcohol use no Gallo Peterson passive cigarette sm rubia exposure no Gallo Long MD chewing tobacco use no Gallo maciel MD cigar use no Gallo Peterson smoking, year quit 2018 Gallo wright MD number of years as a smoker less than 10 years Gallo Long MD smoking, date started 1998 Gallo Long MD smoking history, tot al pack/year 23 Gallo Long MD smoking history, tot al pack/day 1 Gallo Long MD cigarette use yes Gallo Long MD smoking status Former smoker Gallo johnson MD social history reviewed E&M revi ewed - no changes required Gallo Long MD smoking history, tot al pack/year 23 Brad Starkey RN social history E&M Marital Statu s: L fadi with family/friends E thnicity: Smoking History: P tomas is a former smoker. Gallo Long MD social history reviewed E&M revi ewed - no changes required Gallo Long MD seatbelt usage 100 % Veronica Paz physical exercise, frequency, days per week no Veronica Paz caffeine use, averag e drinks per day yes Veronica Paz passive cigarette sm rubia exposure no Veronica Paz chewing tobacco use no Veronica Ramirez cigar use no Veronica Paz smoking, year quit 2018 Veronica enciso number of years as a smoker less than 10 years Veronica Paz smoking, date started 1998 Veronica Paz smoking history, tot al pack/year 18 Veronica Paz smoking history, tot al pack/day 1 Veronica Paz cigarette use yes Veronica Paz smoking status Former smoker Veronica Paz social history E&M Marital Statu s: L fadi with family/friends E thnicity: Smoking History: Sindy marin is a former smoker. Gallo Long MD smoking, year quit 2019 Gallo wright MD cigarette use yes Gallo Long MD smoking status Former smoker Gallo johnson MD social history reviewed E&M revi ewed - no changes required Gallo Long MD social history E&M Marital Statu s: L fadi with family/friends E thnicity: Smoking History: Sindy marin currently smokes every day. P tomas has been counseled to quit. Gallo Long MD social history reviewed E&M revi ewed - no changes required Gallo Long MD seatbelt usage 100 % Luciana chappell physical exercise, frequency, days per week no Luciana Ceja caffeine use, averag e drinks per day yes Luciana Ceja passive cigarette sm rubia exposure no Luciana Ceja smoking/tobacco cess ation, patient education and counseling yes Luciana Ceja chewing tobacco use no Luciana Ceja cigar use no Luciana Owens l number of years as a smoker less than 10 years Luciana Ceja smoking, date started 1998 Patience Ceja smoking history, tot al pack/year 18 Luciana Ceja smoking history, tot al pack/day 1 Luciana Ceja cigarette use yes Luciana reagan smoking status Current every day smoker Shaquille duvallyu Marcial social history E&M Marital Statu s: L fadi with family/friends E thnicity: Smoking History: P tomas currently smokes every day. P atjame has been counseled to quit. Gallo Long MD social history reviewed E&M revi ewed - no changes required Gallo Long MD seatbelt usage 100 % Luciana chappell physical exercise, frequency, days per week no Luciana Ceja caffeine use, averag e drinks per day yes Luciana Ceja passive cigarette sm rubia exposure no Luciana Ceja smoking/tobacco cess ation, patient education and counseling yes Luciana Ceja chewing tobacco use no Luciana Ceja cigar use no Luciana burgos number of years as a smoker less than 10 years Luciana Ceja smoking, date started 1998 Patience Ceja smoking history, tot al pack/year 18 Luciana Ceja smoking history, tot al pack/day 1 Luciana Ceja cigarette use yes Luciana reagan smoking status Current every day smoker Shaquille Ceja social history E&M Marital Statu s: L fadi with family/friends E thnicity: Smoking History: P atient currently smokes every day. P atient has been counseled to quit. Gallo Long MD social history reviewed E&M revi ewed - no changes required Gallo Long MD seatbelt usage 100 % [facility] physical exercise, frequency, days per week no [facility] alcohol use, average drinks per day social basis only [facility] alcohol use no [facility] caffeine use, averag e drinks per day yes [facility] drug use none [facility] smoking/tobacco cess ation, patient education and counseling yes [facility] passive cigarette sm rub[place] exposure no [facility] chewing tobacco use no [facility] cigar use no [facility] number of years as a smoker less than 10 years [facility] smoking, date started 1998 [facility] smoking history, tot al pack/year 18 [facility] smoking history, tot al pack/day 1 [facility] cigarette use yes [facility] smoking status Current every day smoker D abbi Saffell social history E&M Marital Statu s: L fadi with family/friends E thnicity: Smoking History: P atient currently smokes every day. P atient has been counseled to quit. Gallo Long MD social history reviewed E&M revi ewed - no changes required Gallo Long MD seatbelt usage 100 % Usama Staples physical exercise, frequency, days per week no Usama Lomas alcohol use, average drinks per day social basis only Usama Lomas alcohol use no Usama diana caffeine use, averag e drinks per day yes Usama Abebe drug use none Usama diana smoking/tobacco cess ation, patient education and counseling yes Usama Abebe passive cigarette sm [place] exposure no Usama Abebe chewing tobacco use no EwelinaJeannie johnson Abebe cigar use no Usama diana number of years as a smoker less than 10 years Usama Lomas smoking, date started 1998 Virgil Lomas smoking history, tot al pack/year 18 UsamaAlice Bostonenson smoking history, tot al pack/day 1 UsamaAlice Bostonenson cigarette use yes UsamaAlice baxter smoking status Current every day smoker Jess Lomas smoking history, tot al pack/year 18 Ewelina Ricks RN social history reviewed E&M brooke stacy - no changes required Gallo Long MD seatbelt usage 100 % Usama Staples physical exercise, frequency, days per week no Usama Lomas alcohol use, average drinks per day social basis only Usama Lomas alcohol use no Usama Rashaad adalgisa caffeine use, averag e drinks per day yes Usama Lomas drug use none Usama Neil adalgisa smoking/tobacco cess ation, patient education and counseling yes UsamaAlice Bostonenson passive cigarette sm [place] exposure no Usama Lomas chewing tobacco use no EwelinaJeannie Bostonenson cigar use no Usama Neil adalgisa number of years as a smoker less than 10 years Usama Lmoas smoking, date started 1998 Virgil Lomas smoking history, tot al pack/year 17 Usama Lomas smoking history, tot al pack/day 1 Usama Lomas cigarette use yes Usama baxter smoking status Current every day smoker Jess Lomas smoking history, tot al pack/year 17 Ewelina Millicent SEWELL social history reviewed E&M revi ewed - no changes required Gallo Long MD seatbelt usage 100 % Cheri Janet johnson physical exercise, frequency, days per week no Cheri Charles alcohol use, average drinks per day social basis only Cheri Charles alcohol use no Cheri Charles caffeine use, averag e drinks per day yes Cheri Charles drug use none Cheri Charles smoking/tobacco cess ation, patient education and counseling yes Cheri Charles passive cigarette sm rub[place] exposure no Cheri Charles chewing tobacco use no Cheri Charles cigar use no Cheri Charles number of years as a smoker less than 10 years Cheri Charles smoking, date started 1998 Alex nicholas Charles smoking history, tot al pack/year 11 Cheri Charles smoking history, tot al pack/day 1 Cheri Charles cigarette use yes Cheri Charles smoking status Current every day smoker Jess rey Araceli smoking/tobacco cess ation, patient education and counseling yes Gallo Long MD social history reviewed E&M revi ewed - no changes required Gallo Long MD smoking status Current every day smoker A agustin Brink social history reviewed E&M revi ewed - no changes required Gallo Long MD smoking status Current every day smoker A agustin Brink alcohol use no Gallo Peterson smoking, date started 1998 Gallo Long MD smoking history, tot al pack/day 1 Gallo Long MD cigarette use yes Gallo Long MD smoking status Current every day smoker R aaron Long MD social history reviewed E&M brooke stacy - no changes required Gallo Long MD drug use none Gallo Peterson smoking/tobacco cess ation, patient education and counseling yes Brad Starkey RN social history reviewed E&M reviewed Brad Starkey RN smoking history, tot al pack/year 11 Brad Starkey RN smoking history, tot al pack/year 11 Brad Starkey RN smoking/tobacco cess ation, patient education and counseling yes Homero Key MD cigar use no Homero Peterson chewing tobacco use no Homero meyer MD smoking status current every day smoker H thea Key MD social history reviewed E&M reviewed Brad Satrkey RN smoking history, tot al pack/year 11 Brad Starkey RN seatbelt usage 100 % Gallo Long MD drug use no Gallo Peterson passive cigarette sm rubia exposure no Gallo Long MD social history reviewed E&M reviewed Brad Starkey RN smoking/tobacco cess ation, patient education and counseling no Stephanie Dunham smoking history, tot al pack/day 0.5 Stephanie Dunham smoking history, tot al pack/year 10 Stephanie Dunham cigarette use yes Stephanie munoz smoking, date started 2002 Stephanie Dunham smoking status smoker - current status unknown Brad Starkey RN social history reviewed E&M reviewed Gallo Long MD smoking/tobacco cess ation, patient education and counseling yes Brad Starkey RN social history reviewed E&M reviewed Brad Starkey RN social history reviewed E&M reviewed Gallo Lnog MD smoking/tobacco cess ation, patient education and counseling yes Brad Starkey RN social history reviewed E&M reviewed Brad Starkey RN social history reviewed E&M reviewed Brad Starkey RN drug use none Gallo Mercado D physical exercise, frequency, days per week no [employer] caffeine use, averag e drinks per day yes [employer] alcohol use, average drinks per day social basis only [employer] number of years as a smoker less than 10 years [facility] smoking status Smoker [employer] social history E&M Marital Statu s: L fadi with family/friends Ethnicity: Gallo Long MD caffeine use, averag e drinks per day yes Brad Starkey RN alcohol use, average drinks per day socially Brad Starkey RN smoking status Smoker Brad Starkey RN social history reviewed E&M reviewed Brad Starkey RN physical exercise, frequency, days per week no [employer] caffeine use, averag e drinks per day yes [employer] alcohol use, average drinks per day social basis only [employer] number of years as a smoker less than 10 years [facility] smoking status Smoker [employer] FUNCTIONAL STATUS Date Observation Value Provider HRA, CV Assess/Plan, Angina (inactive) Management Plan continue current therapy Gallo Long MD HRA, CV Assess/Plan, Angina (inactive) Management Plan continue current therapy Gallo Long MD HRA, CV Assess/Plan, Angina (inactive) Management Plan continue current therapy Gallo Long MD HRA, CV Assess/Plan, Angina (inactive) Management Plan continue current therapy Gallo Long MD HRA, CV Assess/Plan, Angina (inactive) Management Plan continue current therapy Gallo Long MD HRA, CV Assess/Plan, Angina (inactive) Management Plan continue current therapy Gallo Long MD MENTAL STATUS Date Observation Value Provider assessment of judgme nt and insight E&M Alert and oriented to time, place and person. Mood and affect are normal. Brad Starkey RN assessment of judgme nt and insight E&M Alert and oriented to time, place and person. Mood and affect are normal. Brad Starkey RN assessment of judgme nt and insight E&M Alert and oriented to time, place and person. Mood and affect are normal. Brad Starkey RN assessment of judgme nt and insight E&M Alert and oriented to time, place and person. Mood and affect are normal. Gallo Long MD assessment of judgme nt and insight E&M Alert and oriented to time, place and person. Mood and affect are normal. Brad Starkey RN assessment of judgme nt and insight E&M Alert and oriented to time, place and person. Mood and affect are normal. Gallo Long MD assessment of judgme nt and insight E&M Alert and oriented to time, place and person. Mood and affect are normal. Brad Starkey RN assessment of judgme nt and insight E&M Alert and oriented to time, place and person. Mood and affect are normal. Brad Starkey RN assessment of judgme nt and insight E&M Alert and oriented to time, place and person. Mood and affect are normal. Brad Starkey RN FAMILY HISTORY Family Member Condition Father [place] male <55 Other Family Member Family History Coron kyaw Heart Disease male < 55: Father Family History of Co ronary Artery Disease: INSURANCE PROVIDERS Payer name Policy type / Coverage type [facility] [place] [employer] party ID [place] MED[place] Medicare [id number] ADVANCE DIRECTIVES Name Date DISCUSSED - NO DECISION MADE TREATMENT PLAN Date Name Performer [id number],SGallo MD [id number],SGallo MD [id number],SGallo MD [id number],B, Gallo johnson MD [id number],S, Gallo johnson MD [id number],S, Gallo johnson MD [id number],S, Gallo johnson MD [id number],S, Gallo johnson MD [id number],S, Gallo johnson MD [id number],S, Gallo johnson MD [id number],S, Gallo johnson MD [id number],S, Gallo johnson MD [id number],B, Gallo johnson MD Cardiology:Losing a little weigh t Gallo Long MD Cardiology:She broug ht labs with her. Cholesterol panel looks ok Gallo Long MD Cardiology Gallo Long MD Cardiology:History o ccluded branch off circ. N o symptoms now Gallo Long MD Cardiology Gallo Long MD Cardiology Gallo Long MD Cardiology Gallo Long MD Cardiology Gallo Long MD Cardiology Gallo Long MD Cardiology Gallo Long MD Cardiology Gallo Long MD Cardiology Gallo Long MD Cardiology Gallo Long MD Cardiology Gallo Long MD Cardiology Gallo Long MD Cardiology Gallo Long MD Cardiology Gallo Long MD Cardiology follow up :Juliet chappell December 2019 Gallo Long MD Cardiology follow up Gallo bryant MD Cardiology follow up Gallo bryant MD Cardiology follow up Gallo bryant MD Cardiology follow up Gallo bryant MD Cardiology follow up :Had recurrance. Needs stress and echo. Gallo Long MD Cardiology follow up Gallo bryant MD Cardiology follow up Gallo bryant MD Cardiology follow up Gallo bryant MD Cardiology follow up Gallo bryant MD Cardiology follow up Gallo bryant MD Cardiology follow up Gallo bryant MD Cardiology follow up Gallo bryant MD Cardiology follow up:Sleep study negative for OSAS Gallo Long MD Cardiology follow up Gallo bryant MD Cardiology follow up :Continues to have occasional CP unchanged for years. Stress last year negative. I don't see any reason to repeat at this time. Gallo Long MD Cardiology Gallo Long MD Cardiology Gallo Long MD Cardiology Gallo Long MD Cardiology Gallo Long MD Cardiology Gallo Long MD Cardiology Gallo Long MD Cardiology Gallo Long MD Cardiology Gallo Long MD Cardiology:negative sleep study Gallo Long MD Cardiology Gallo Long MD Cardiology Gallo Long MD Cardiology Gallo Long MD Cardiology Gallo Long MD Cardiology:Stress test negative Gallo Long MD Cardiology Gallo Long MD Cardiology Gallo Long MD follow up Gallo Long MD follow up Gallo Long MD follow up: H er updated medication list for this problem includes: Lisinopril 2.5 Mg Tabs (Lisinopril) ..... One tab. daily Aspirin 325 Mg Tabs (Aspirin) ..... One tab. daily Orders: S TR - Adenosine (01953) C omplete Echo (CPT-70295) Gallo Long MD follow up Gallo Long MD follow up Gallo Long MD follow up Gallo Long MD follow up Gallo Long MD follow up Gallo Long MD test results : B P today: 135/89 Prior BP: 132/81 (12/02/2013) N uclear Stress Findings: 1. Normal myocardial perfusion imaging after vasodilator stress with Regadenoson. 2 . Normal left ventricular systolic function with a calculated ejection fraction of 70%. 3 . No obvious significant scintigraphic evidence of myocardial ischemia or scar. - CNE (12/03/2013) C ardiac Cath: EF 60%. 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 Normal EF with a limited anterolateral motion abnormality. (03/03/2003) C arotid Doppler/Duplex: No significant stenosis of the carotid arteries bilaterally. B ilateral normal antegrade flow into both vertebrals. SLHV (01/10/2009) C HOL: 160 (12/03/2013) LDL: 48 (12/03/2013) HDL: 99 (12/03/2013) T (12/03/2013) H gb: 12.2 (01/17/2011) HCT: 36.5 (07/07/2012) Platelets: 237 (07/07/2012) R BC: 3.59 (01/17/2011) WBC: 4.1 (01/17/2011) B UN: 13 (01/17/2011) Creat: 0.98 (07/07/2012) Glucose: 95 (01/17/2011) N a+: 140 (07/07/2012) K+: 4.3 (07/07/2012) Cl: 112 (01/17/2011) TSH: 0.47 (03/10/2013) T he following medications were removed from the medication list: Atenolol 25 Mg Tab (Atenolol) ..... Take 1 tablet by mouth once a day Her updated medication list for this problem includes: Aspirin 325 Mg Tabs (Aspirin) ..... One tab. daily Trilipix 135 Mg Cpdr (Choline fenofibrate) ..... One tab. daily Simcor 1000-40 Mg [id number] (Niacin-simvastatin) ..... One tab. daily - dispense as written Cholestyramine Pack (Cholestyramine pack) ..... Once daily Gallo Long MD test results : B P today: 135/89 Prior BP: 132/81 (12/02/2013) C HOL: 160 (12/03/2013) LDL: 48 (12/03/2013) HDL: 99 (12/03/2013) T (12/03/2013) Her updated medication list for this problem includes: Trilipix 135 Mg Cpdr (Choline fenofibrate) ..... One tab. daily Simcor 1000-40 Mg [id number] (Niacin-simvastatin) ..... One tab. daily - dispense as written Cholestyramine Pack (Cholestyramine pack) ..... Once daily Gallo Long MD test results : T he following medications were removed from the medication list: Atenolol 25 Mg Tab (Atenolol) ..... Take 1 tablet by mouth once a day Her updated medication list for this problem includes: Aspirin 325 Mg Tabs (Aspirin) ..... One tab. daily Trilipix 135 Mg Cpdr (Choline fenofibrate) ..... One tab. daily Simcor 1000-40 Mg [id number] (Niacin-simvastatin) ..... One tab. daily - dispense as written Cholestyramine Pack (Cholestyramine pack) ..... Once daily Gallo Long MD test results : B P today: 135/89 Prior BP: 132/81 (12/02/2013) N uclear Stress Findings: 1. Normal myocardial perfusion imaging after vasodilator stress with Regadenoson. 2 . Normal left ventricular systolic function with a calculated ejection fraction of 70%. 3 . No obvious significant scintigraphic evidence of myocardial ischemia or scar. - CNE (12/03/2013) C ardiac Cath: EF 60%. 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 Normal EF with a limited anterolateral motion abnormality. (03/03/2003) H gb: 12.2 (01/17/2011) HCT: 36.5 (07/07/2012) Platelets: 237 (07/07/2012) R BC: 3.59 (01/17/2011) WBC: 4.1 (01/17/2011) B UN: 13 (01/17/2011) Creat: 0.98 (07/07/2012) Glucose: 95 (01/17/2011) N a+: 140 (07/07/2012) K+: 4.3 (07/07/2012) Cl: 112 (01/17/2011) SGOT (AST): 27 (07/07/2012) SGPT (ALT): 25 (07/07/2012) TSH: 0.47 (03/10/2013) T he following medications were removed from the medication list: Atenolol 25 Mg Tab (Atenolol) ..... Take 1 tablet by mouth once a day Her updated medication list for this problem includes: Aspirin 325 Mg Tabs (Aspirin) ..... One tab. daily Orders: S anjel Study (*) Gallo Long MD test results : B P today: 135/89 Prior BP: 132/81 (12/02/2013) N uclear Stress Findings: 1. Normal myocardial perfusion imaging after vasodilator stress with Regadenoson. 2 . Normal left ventricular systolic function with a calculated ejection fraction of 70%. 3 . No obvious significant scintigraphic evidence of myocardial ischemia or scar. - CNE (12/03/2013) C ardiac Cath: EF 60%. 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 Normal EF with a limited anterolateral motion abnormality. (03/03/2003) C arotid Doppler/Duplex: No significant stenosis of the carotid arteries bilaterally. B ilateral normal antegrade flow into both vertebrals. SLHV (01/10/2009) C HOL: 160 (12/03/2013) LDL: 48 (12/03/2013) HDL: 99 (12/03/2013) T (12/03/2013) H gb: 12.2 (01/17/2011) HCT: 36.5 (07/07/2012) Platelets: 237 (07/07/2012) R BC: 3.59 (01/17/2011) WBC: 4.1 (01/17/2011) B UN: 13 (01/17/2011) Creat: 0.98 (07/07/2012) Glucose: 95 (01/17/2011) N a+: 140 (07/07/2012) K+: 4.3 (07/07/2012) Cl: 112 (01/17/2011) TSH: 0.47 (03/10/2013) T he following medications were removed from the medication list: Atenolol 25 Mg Tab (Atenolol) ..... Take 1 tablet by mouth once a day Her updated medication list for this problem includes: Aspirin 325 Mg Tabs (Aspirin) ..... One tab. daily Gallo Long MD clin desk not reviewed Homero dorantes MD clin desk not review ed: T he following medications were removed from the medication list: Aspirin 325 Mg Tabs (Aspirin) ..... One tab. daily Her updated medication list for this problem includes: Aspirin 325 Mg Tabs (Aspirin) ..... One tab. daily BP today: 132/81 Prior BP: 119/74 (01/19/2013) N uclear Stress Findings: 1. Regadenoson mediated myocardial perfusion study 2 . Abnormal left ventricular systolic function with a calculated ejection fraction of 45%. 3 . No obvious significant scintigraphic evidence of myocardial ischemia or scar. GC (09/24/2010) C ardiac Cath: EF 60%. 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 Normal EF with a limited anterolateral motion abnormality. (03/03/2003) C arotid Doppler/Duplex: No significant stenosis of the carotid arteries bilaterally. B ilateral normal antegrade flow into both vertebrals. SLHV (01/10/2009) C HOL: 178 (07/07/2012) LDL: 77 (07/07/2012) HDL: 69 (01/17/2011) T (01/17/2011) H gb: 12.2 (01/17/2011) HCT: 36.5 (07/07/2012) Platelets: 237 (07/07/2012) R BC: 3.59 (01/17/2011) WBC: 4.1 (01/17/2011) B UN: 13 (01/17/2011) Creat: 0.98 (07/07/2012) Glucose: 95 (01/17/2011) N a+: 140 (07/07/2012) K+: 4.3 (07/07/2012) Cl: 112 (01/17/2011) TSH: 0.47 (03/10/2013) Homero Key MD clin desk not review ed: T he following medications were removed from the medication list: Aspirin 325 Mg Tabs (Aspirin) ..... One tab. daily Her updated medication list for this problem includes: Aspirin 325 Mg Tabs (Aspirin) ..... One tab. daily Trilipix 135 Mg Cpdr (Choline fenofibrate) ..... One tab. daily Simcor 1000-40 Mg [id number] (Niacin-simvastatin) ..... One tab. daily - dispense as written Cholestyramine Pack (Cholestyramine pack) ..... Once daily Carotid Duplex Scan: N o significant stenosis of the carotid arteries bilaterally. B ilateral normal antegrade flow into both vertebrals. SLHV (01/10/2009) Homero Key MD clin desk not review ed: H er updated medication list for this problem includes: Trilipix 135 Mg Cpdr (Choline fenofibrate) ..... One tab. daily Simcor 1000-40 Mg [id number] (Niacin-simvastatin) ..... One tab. daily - dispense as written Cholestyramine Pack (Cholestyramine pack) ..... Once daily BP today: 132/81 Prior BP: 119/74 (01/19/2013) C HOL: 178 (07/07/2012) LDL: 77 (07/07/2012) HDL: 69 (01/17/2011) T (01/17/2011) Orders: S TR - Adenosine (49793) C omplete Echo (CPT-50487) Homero Key MD clin desk not reviewed Homero dorantes MD follow up: T he following medications were removed from the medication list: Altace 10 Mg Caps (Ramipril) ..... One tab. daily Her updated medication list for this problem includes: Aspirin 325 Mg Tabs (Aspirin) ..... One tab. daily Trilipix 135 Mg Cpdr (Choline fenofibrate) ..... One tab. daily Simcor 1000-40 Mg [id number] (Niacin-simvastatin) ..... One tab. daily - dispense as written Aspirin 325 Mg Tabs (Aspirin) ..... One tab. daily BP today: 119/74 Prior BP: 100/60 (11/05/2011) N uclear Stress Findings: 1. Regadenoson mediated myocardial perfusion study 2 . Abnormal left ventricular systolic function with a calculated ejection fraction of 45%. 3 . No obvious significant scintigraphic evidence of myocardial ischemia or scar. & #13;GC (09/24/2010) C ardiac Cath: EF 60%. 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 Normal EF with a limited anterolateral motion abnormality. (03/03/2003) C arotid Doppler/Duplex: No significant stenosis of the carotid arteries bilaterally. B ilateral normal antegrade flow into both vertebrals. SLHV (01/10/2009) CHOL: 178 (07/07/2012) LDL: 77 (07/07/2012) HDL: 69 (01/17/2011) T (01/17/2011) H gb: 12.2 (01/17/2011) HCT: 36.5 (07/07/2012) Platelets: 237 (07/07/2012) R BC: 3.59 (01/17/2011) WBC: 4.1 (01/17/2011) B UN: 13 (01/17/2011) Creat: 0.98 (07/07/2012) Glucose: 95 (01/17/2011) N a+: 140 (07/07/2012) K+: 4.3 (07/07/2012) Cl: 112 (01/17/2011) TSH: 3.62 (01/17/2011) Gallo Long MD follow up: T he following medications were removed from the medication list: Altace 10 Mg Caps (Ramipril) ..... One tab. daily Her updated medication list for this problem includes: Aspirin 325 Mg Tabs (Aspirin) ..... One tab. daily Aspirin 325 Mg Tabs (Aspirin) ..... One tab. daily BP today: 119/74 P rior BP: 100/60 (11/05/2011) Labs Reviewed: C reat: 0.98 (07/07/2012) C hol: 178 (07/07/2012) HDL: 69 (01/17/2011) LDL: 77 (07/07/2012) T (01/17/2011) Gallo Long MD follow up: H er updated medication list for this problem includes: Aspirin 325 Mg Tabs (Aspirin) ..... One tab. daily Aspirin 325 Mg Tabs (Aspirin) ..... One tab. daily Orders: EKG (CPT-91401) Carotid Duplex Scan: N o significant stenosis of the carotid arteries bilaterally. B ilateral normal antegrade flow into both vertebrals. SLHV (01/10/2009) Gallo Long MD follow up: T he following medications were removed from the medication list: Altace 10 Mg Caps (Ramipril) ..... One tab. daily Her updated medication list for this problem includes: Aspirin 325 Mg Tabs (Aspirin) ..... One tab. daily Aspirin 325 Mg Tabs (Aspirin) ..... One tab. daily BP today: 119/74 Prior BP: 100/60 (11/05/2011) N uclear Stress Findings: 1. Regadenoson mediated myocardial perfusion study 2 . Abnormal left ventricular systolic function with a calculated ejection fraction of 45%. 3 . No obvious significant scintigraphic evidence of myocardial ischemia or scar. GC (09/24/2010) C ardiac Cath: EF 60%. 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 Normal EF with a limited anterolateral motion abnormality. (03/03/2003) C arotid Doppler/Duplex: No significant stenosis of the carotid arteries bilaterally. B ilateral normal antegrade flow into both vertebrals. SLHV (01/10/2009) C HOL: 178 (07/07/2012) LDL: 77 (07/07/2012) HDL: 69 (01/17/2011) T (01/17/2011) H gb: 12.2 (01/17/2011) HCT: 36.5 (07/07/2012) Platelets: 237 (07/07/2012) RBC: 3.59 (01/17/2011) WBC: 4.1 (01/17/2011) B UN: 13 (01/17/2011) Creat: 0.98 (07/07/2012) Glucose: 95 (01/17/2011) N a+: 140 (07/07/2012) K+: 4.3 (07/07/2012) Cl: 112 (01/17/2011) TSH: 3.62 (01/17/2011) Gallo Long MD follow up: H er updated medication list for this problem includes: Trilipix 135 Mg Cpdr (Choline fenofibrate) ..... One tab. daily Simcor 1000-40 Mg [id number] (Niacin-simvastatin) ..... One tab. daily - dispense as written BP today: 119/74 Prior BP: 100/60 (11/05/2011) C HOL: 178 (07/07/2012) LDL: 77 (07/07/2012) HDL: 69 (01/17/2011) T (01/17/2011) Orders: e Prescribe - Check this box if eRx is used (CPT-G8553) Gallo Long MD follow up: H er updated medication list for this problem includes: Aspirin 325 Mg Tabs (Aspirin) ..... One tab. daily Carotid Duplex Scan: N o significant stenosis of the carotid arteries bilaterally. B ilateral normal antegrade flow into both vertebrals. [facility] (01/10/2009) Echocardiogram: N ormal left ventricular systolic function. Normal left ventricular size. Normal left ventricular wall thickness. There is E to A wave reversal consistent with impaired LV relaxation . Normal E/E` 11.0. L eft ventricular ejection fraction is estimated at 55%. No significant valvular abnormalities. GC (09/24/2010) Gallo Long MD follow up: H er updated medication list for this problem includes: Trilipix 135 Mg Cpdr (Choline fenofibrate) ..... One tab. daily Simcor 500-20 Mg [id number] (Niacin-simvastatin) ..... 2 tablets daily BP today: 100/60 Prior BP: 106/74 (10/09/2010) C HOL: 155 (01/17/2011) LDL: 74 (01/17/2011) HDL: 69 (01/17/2011) T (01/17/2011) Gallo Long MD follow up: H er updated medication list for this problem includes: Altace 10 Mg Caps (Ramipril) ..... One tab. daily Aspirin 325 Mg Tabs (Aspirin) ..... One tab. daily Orders: Complete Echo (CPT-[id number]) BP today: 100/60 P rior BP: 106/74 (10/09/2010) Labs Reviewed: C reat: 1.06 (01/17/2011) C hol: 155 (01/17/2011) HDL: 69 (01/17/2011) LDL: 74 (01/17/2011) T (01/17/2011) Gallo Long MD follow up: H er updated medication list for this problem includes: Altace 10 Mg Caps (Ramipril) ..... One tab. daily Aspirin 325 Mg Tabs (Aspirin) ..... One tab. daily Trilipix 135 Mg Cpdr (Choline fenofibrate) ..... One tab. daily Simcor 500-20 Mg [id number] (Niacin-simvastatin) ..... 2 tablets daily Orders: C omplete Echo (CPT-[id number]) BP today: 100/60 Prior BP: 106/74 (10/09/2010) N uclear Stress Findings: 1. Regadenoson mediated myocardial perfusion study 2 . Abnormal left ventricular systolic function with a calculated ejection fraction of 45%. 3 . No obvious significant scintigraphic evidence of myocardial ischemia or scar. GC (09/24/2010) C ardiac Cath: EF 60%. 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 Normal EF with a limited anterolateral motion abnormality. (03/03/2003) C arotid Doppler/Duplex: No significant stenosis of the carotid arteries bilaterally. B ilateral normal antegrade flow into both vertebrals. [facility] (01/10/2009) C HOL: 155 (01/17/2011) LDL: 74 (01/17/2011) HDL: 69 (01/17/2011) T (01/17/2011) H gb: 12.2 (01/17/2011) HCT: 36.3 (01/17/2011) RBC: 3.59 (01/17/2011) WBC: 4.1 (01/17/2011) B UN: 13 (01/17/2011) Creat: 1.06 (01/17/2011) Glucose: 95 (01/17/2011) N a+: 141 (01/17/2011) K+: 4.2 (01/17/2011) Cl: 112 (01/17/2011) TSH: 3.62 (01/17/2011) Gallo Long MD test results : H er updated medication list for this problem includes: Altace 10 Mg Caps (Ramipril) ..... One tab. daily Aspirin 325 Mg Tabs (Aspirin) ..... One tab. daily Trilipix 135 Mg Cpdr (Choline fenofibrate) ..... One tab. daily Simcor 500-20 Mg [id number] (Niacin-simvastatin) ..... 2 tablets daily BP today: 106/74 Prior BP: 116/80 (08/14/2010) N uclear Stress Findings: 1. Regadenoson mediated myocardial perfusion study 2 . Abnormal left ventricular systolic function with a calculated ejection fraction of 45%. 3 . No obvious significant scintigraphic evidence of myocardial ischemia or scar. (09/24/2010) C ardiac Cath: EF 60%. 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 Normal EF with a limited anterolateral motion abnormality. (03/03/2003) C arotid Doppler/Duplex: No significant stenosis of the carotid arteries bilaterally. B ilateral normal antegrade flow into both vertebrals. [facility] (01/10/2009) C HOL: 188 (10/04/2010) LDL: 103 MG/DL (CALC) (10/04/2010) HDL: 68 (10/04/2010) T (10/04/2010) B UN: 16 (08/23/2009) Creat: 1.26 (08/23/2009) Glucose: 98 (08/23/2009) N a+: 139 (08/23/2009) K+: 4.4 (08/23/2009) Cl: 106 (08/23/2009) Gallo Long MD test results : H er updated medication list for this problem includes: Altace 10 Mg Caps (Ramipril) ..... One tab. daily Aspirin 325 Mg Tabs (Aspirin) ..... One tab. daily BP today: 106/74 P rior BP: 116/80 (08/14/2010) Labs Reviewed: C reat: 1.26 (08/23/2009) C hol: 188 (10/04/2010) HDL: 68 (10/04/2010) LDL: 103 MG/DL (CALC) (10/04/2010) T (10/04/2010) Gallo Long MD test results : H er updated medication list for this problem includes: Aspirin 325 Mg Tabs (Aspirin) ..... One tab. daily Carotid Duplex Scan: N o significant stenosis of the carotid arteries bilaterally. B ilateral normal antegrade flow into both vertebrals. [facility] (01/10/2009) Echocardiogram: N ormal left ventricular systolic function. Normal left ventricular size. Normal left ventricular wall thickness. There is E to A wave reversal consistent with impaired LV relaxation . Normal E/E` 11.0. L eft ventricular ejection fraction is estimated at 55%. No significant valvular abnormalities. (09/24/2010) Gallo Long MD test results : H er updated medication list for this problem includes: Altace 10 Mg Caps (Ramipril) ..... One tab. daily Aspirin 325 Mg Tabs (Aspirin) ..... One tab. daily BP today: 106/74 Prior BP: 116/80 (08/14/2010) N uclear Stress Findings: 1. Regadenoson mediated myocardial perfusion study 2 . Abnormal left ventricular systolic function with a calculated ejection fraction of 45%. 3 . No obvious significant scintigraphic evidence of myocardial ischemia or scar. (09/24/2010) C ardiac Cath: EF 60%. 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 Normal EF with a limited anterolateral motion abnormality. (03/03/2003) C arotid Doppler/Duplex: No significant stenosis of the carotid arteries bilaterally. B ilateral normal antegrade flow into both vertebrals. [facility] (01/10/2009) C HOL: 188 (10/04/2010) LDL: 103 MG/DL (CALC) (10/04/2010) HDL: 68 (10/04/2010) T (10/04/2010) B UN: 16 (08/23/2009) Creat: 1.26 (08/23/2009) Glucose: 98 (08/23/2009) N a+: 139 (08/23/2009) K+: 4.4 (08/23/2009) Cl: 106 (08/23/2009) Echocardiogram: Normal left ventricular systolic function. Normal left ventricular size. Normal left ventricular wall thickness. There is E to A wave reversal consistent with impaired LV relaxation . Normal E/E` 11.0. L eft ventricular ejection fraction is estimated at 55%. No significant valvular abnormalities. (09/24/2010) Gallo Long MD test results : H er updated medication list for this problem includes: Trilipix 135 Mg Cpdr (Choline fenofibrate) ..... One tab. daily Simcor 500-20 Mg [id number] (Niacin-simvastatin) ..... 2 tablets daily BP today: 106/74 Prior BP: 116/80 (08/14/2010) C HOL: 188 (10/04/2010) LDL: 103 MG/DL (CALC) (10/04/2010) HDL: 68 (10/04/2010) T (10/04/2010) Gallo Long MD follow up: H er updated medication list for this problem includes: Altace 10 Mg Caps (Ramipril) ..... One tab. daily Aspirin 325 Mg Tabs (Aspirin) ..... One tab. daily Orders: Complete Echo (CPT-[id number]) BP today: 116/80 P rior BP: 124/80 (08/15/2009) Labs Reviewed: C reat: 1.26 (08/23/2009) C hol: 198 (08/23/2009) HDL: 60 (08/23/2009) LDL: 114 (08/23/2009) T (08/23/2009) Gallo Long MD follow up: H er updated medication list for this problem includes: Altace 10 Mg Caps (Ramipril) ..... One tab. daily Aspirin 325 Mg Tabs (Aspirin) ..... One tab. daily Orders: EKG (CPT-[id number]) BP today: 116/80 Prior BP: 124/80 (08/15/2009) N uclear Stress Findings: 1. Adenosine mediated myocardial perfusion study 2 . Normal left ventricular systolic function with a calculated ejection fraction of 65%. 3 . No obvious significant scintigraphic evidence of myocardial ischemia or scar. GC (08/07/2009) C ardiac Cath: EF 60%. 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 Normal EF with a limited anterolateral motion abnormality. (03/03/2003) C arotid Doppler/Duplex: No significant stenosis of the carotid arteries bilaterally. B ilateral normal antegrade flow into both vertebrals. [facility] (01/10/2009) C HOL: 198 (08/23/2009) LDL: 114 (08/23/2009) HDL: 60 (08/23/2009) T (08/23/2009) B UN: 16 (08/23/2009) Creat: 1.26 (08/23/2009) Glucose: 98 (08/23/2009) N a+: 139 (08/23/2009) K+: 4.4 (08/23/2009) Cl: 106 (08/23/2009) Echocardiogram: TDS. Normal left ventricular systolic function. Normal left ventricular size. Normal left ventricular wall thickness. Mitral inflow Doppler demonstrates pseudonormal pattern consistent with diastolic dysfunction. Normal E/E` 8.0. Left ventricular ejection fraction i s estimated at 55%. There is trace physiologic mitral valve regurgitation. There is non-specific thickening of the mitral valve leaflets. Mild mitral annular calcification. Normal aortic root. (08/07/2009) Gallo Long MD follow up: H er updated medication list for this problem includes: Trilipix 135 Mg Cpdr (Choline fenofibrate) ..... One tab. daily Simcor 1000-20 Mg [id number] (Niacin-simvastatin) ..... Take 1 tab by mouth at bedtime BP today: 116/80 Prior BP: 124/80 (08/15/2009) C HOL: 198 (08/23/2009) LDL: 114 (08/23/2009) HDL: 60 (08/23/2009) T (08/23/2009) Gallo Long MD follow up: H er updated medication list for this problem includes: Altace 10 Mg Caps (Ramipril) ..... One tab. daily Aspirin 325 Mg Tabs (Aspirin) ..... One tab. daily Trilipix 135 Mg Cpdr (Choline fenofibrate) ..... One tab. daily Simcor 1000-20 Mg [id number] (Niacin-simvastatin) ..... Take 1 tab by mouth at bedtime Orders: S tress Test - Adenosine (11933) & #13;BP today: 116/80 Prior BP: 124/80 (08/15/2009) N uclear Stress Findings: 1. Adenosine mediated myocardial perfusion study 2 . Normal left ventricular systolic function with a calculated ejection fraction of 65%. 3 . No obvious significant scintigraphic evidence of myocardial ischemia or scar. (08/07/2009) C ardiac Cath: EF 60%. 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 Normal EF with a limited anterolateral motion abnormality. (03/03/2003) C arotid Doppler/Duplex: No significant stenosis of the carotid arteries bilaterally. B ilateral normal antegrade flow into both vertebrals. [facility] (01/10/2009) C HOL: 198 (08/23/2009) LDL: 114 (08/23/2009) HDL: 60 (08/23/2009) T (08/23/2009) B UN: 16 (08/23/2009) Creat: 1.26 (08/23/2009) Glucose: 98 (08/23/2009) N a+: 139 (08/23/2009) K+: 4.4 (08/23/2009) Cl: 106 (08/23/2009) Gallo Long MD test results: H er updated medication list for this problem includes: Simcor 500-20 Mg Tb24 (Niacin-simvastatin) ..... One tab. daily Trilipix 135 Mg Cpdr (Choline fenofibrate) ..... One tab. daily Orders: L IPID PANEL (1140) C OMPREHENSIVE METABOLIC PANEL W/EGFR (74311) BP today: 124/80 Prior BP: 110/73 (02/07/2009) C HOL: 177 (12/05/2008) LDL: 97 (12/05/2008) HDL: 62 (12/05/2008) T (12/05/2008) Gallo Long MD test results: H er updated medication list for this problem includes: Altace 10 Mg Caps (Ramipril) ..... One tab. daily Aspirin 325 Mg Tabs (Aspirin) ..... One tab. daily Simcor 500-20 Mg Tb24 (Niacin-simvastatin) ..... One tab. daily Trilipix 135 Mg Cpdr (Choline fenofibrate) ..... One tab. daily BP today: 124/80 Prior BP: 110/73 (02/07/2009) N uclear Stress Findings: 1. Adenosine mediated myocardial perfusion study 2 . Normal left ventricular systolic function with a calculated ejection fraction of 65%. 3 . No obvious significant scintigraphic evidence of myocardial ischemia or scar. GC (08/07/2009) C ardiac Cath: EF 60%. 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 Normal EF with a limited anterolateral motion abnormality. (03/03/2003) C arotid Doppler/Duplex: No significant stenosis of the carotid arteries bilaterally. B ilateral normal antegrade flow into both vertebrals. [facility] (01/10/2009) C HOL: 177 (12/05/2008) LDL: 97 (12/05/2008) HDL: 62 (12/05/2008) T (12/05/2008) Gallo Long MD test results: H er updated medication list for this problem includes: Altace 10 Mg Caps (Ramipril) ..... One tab. daily Aspirin 325 Mg Tabs (Aspirin) ..... One tab. daily BP today: 124/80 P rior BP: 110/73 (02/07/2009) Labs Reviewed: C hol: 177 (12/05/2008) HDL: 62 (12/05/2008) LDL: 97 (12/05/2008) T (12/05/2008) Gallo Long MD test results: H er updated medication list for this problem includes: Aspirin 325 Mg Tabs (Aspirin) ..... One tab. daily Carotid Duplex Scan: N o significant stenosis of the carotid arteries bilaterally. B ilateral normal antegrade flow into both vertebrals. [facility] (01/10/2009) Echocardiogram: T DS. Normal left ventricular systolic function. Normal left ventricular size. Normal left ventricular wall thickness. Mitral inflow Doppler demonstrates pseudonormal pattern consistent with diastolic dysfunction. Normal E/E` 8.0. Left ventricular ejection fraction i s estimated at 55%. There is trace physiologic mitral valve regurgitation. There is non-specific thickening of the mitral valve leaflets. Mild mitral annular calcification. Normal aortic root. (08/07/2009) Gallo Long MD test results: H er updated medication list for this problem includes: Altace 10 Mg Caps (Ramipril) ..... One tab. daily Aspirin 325 Mg Tabs (Aspirin) ..... One tab. daily BP today: 124/80 Prior BP: 110/73 (02/07/2009) N uclear Stress Findings: 1. Adenosine mediated myocardial perfusion study 2 . Normal left ventricular systolic function with a calculated ejection fraction of 65%. 3 . No obvious significant scintigraphic evidence of myocardial ischemia or scar. (08/07/2009) C ardiac Cath: EF 60%. 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 Normal EF with a limited anterolateral motion abnormality. (03/03/2003) C arotid Doppler/Duplex: No significant stenosis of the carotid arteries bilaterally. B ilateral normal antegrade flow into both vertebrals. [facility] (01/10/2009) C HOL: 177 (12/05/2008) LDL: 97 (12/05/2008) HDL: 62 (12/05/2008) T (12/05/2008) E chocardiogram: TDS. Normal left ventricular systolic function. Normal left ventricular size. Normal left ventricular wall thickness. Mitral inflow Doppler demonstrates pseudonormal pattern consistent with diastolic dysfunction. Normal E/E` 8.0. Left ventricular ejection fraction i s estimated at 55%. There is trace physiologic mitral valve regurgitation. There is non-specific thickening of the mitral valve leaflets. Mild mitral annular calcification. Normal aortic root. GC (08/07/2009) Gallo Long MD routine-letter fxd: H er updated medication list for this problem includes: Altace 10 Mg Caps (Ramipril) ..... Daily Aspirin 325 Mg Tabs (Aspirin) ..... One tab. daily Simcor 500-20 Mg Tb24 (Niacin-simvastatin) ..... One tab. daily Tricor 145 Mg Tabs (Fenofibrate) ..... One tab. daily BP today: 110/73 Prior BP: 120/77 (08/02/2008) N uclear Stress Findings: 1. Pt had no chest pain or arrhythmias 2 . She had 0.[address] segment depression in the inferior leads and 0.5 mm upsloping in the lateral leads, NOT diagnostic for ischemia 3 . The test is considered to be negative by ECG criteria 4 . Normal left ventricular size and function with a calculated ejection fraction of 56%. 5 . Myocardial scintigraphy is normal without evidence for previous myocardial infarction or reversible ischemia. (08/09/2008) C ardiac Cath: EF 60%. 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 Normal EF with a limited anterolateral motion abnormality. (03/03/2003) C arotid Doppler/Duplex: No significant stenosis of the carotid arteries bilaterally. B ilateral normal antegrade flow into both vertebrals. [facility] (01/10/2009) C HOL: 210 (07/26/2008) LDL: 113 (07/26/2008) HDL: 58 (07/26/2008) T (07/26/2008) Orders: S tress Test - Nuclear ([id number]) Gallo Long MD routine-letter fxd: H er updated medication list for this problem includes: Altace 10 Mg Caps (Ramipril) ..... Daily Aspirin 325 Mg Tabs (Aspirin) ..... One tab. daily BP today: 110/73 P rior BP: 120/77 (08/02/2008) Labs Reviewed: C hol: 210 (07/26/2008) HDL: 58 (07/26/2008) LDL: 113 (07/26/2008) T (07/26/2008) Orders: C omplete Echo (CPT-[id number]) Gallo Long MD routine-letter fxd: H er updated medication list for this problem includes: Aspirin 325 Mg Tabs (Aspirin) ..... One tab. daily Carotid Duplex Scan: N o significant stenosis of the carotid arteries bilaterally. B ilateral normal antegrade flow into both vertebrals. [facility] (01/10/2009) Echocardiogram: T he left ventricular chamber size is normal. W all thickness is increased consistent with mild concentric left ventricular hypertrophy. N ormal left ventricular function. L V EF is estimated at 55% T here is E: A reversal of mitral inflow velocities consistent with diastolic dysfunction. T here is mitral annular calcification. T he mitral valve leaflets appear (sclerotic) thickened. M inimal mitral regurgitation. N o evidence of aortic valve regurgitation. M inimal tricuspid regurgitation. M inimal pulmonic regurgitation. (08/09/2008) Gallo Long MD routine-letter fxd: H er updated medication list for this problem includes: Altace 10 Mg Caps (Ramipril) ..... Daily Aspirin 325 Mg Tabs (Aspirin) ..... One tab. daily BP today: 110/73 Prior BP: 120/77 (08/02/2008) N uclear Stress Findings: 1. Pt had no chest pain or arrhythmias 2 . She had 0.[address] segment depression in the inferior leads and 0.5 mm upsloping in the lateral leads, NOT diagnostic for ischemia 3 . The test is considered to be negative by ECG criteria 4 . Normal left ventricular size and function with a calculated ejection fraction of 56%. 5 . Myocardial scintigraphy is normal without evidence for previous myocardial infarction or reversible ischemia. (08/09/2008) C ardiac Cath: EF 60%. 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 Normal EF with a limited anterolateral motion abnormality. (03/03/2003) C arotid Doppler/Duplex: No significant stenosis of the carotid arteries bilaterally. B ilateral normal antegrade flow into both vertebrals. [facility] (01/10/2009) C HOL: 210 (07/26/2008) LDL: 113 (07/26/2008) HDL: 58 (07/26/2008) T (07/26/2008) E chocardiogram: The left ventricular chamber size is normal. W all thickness is increased consistent with mild concentric left ventricular hypertrophy. N ormal left ventricular function. L V EF is estimated at 55% T here is E: A reversal of mitral inflow velocities consistent with diastolic dysfunction. T here is mitral annular calcification. T he mitral valve leaflets appear (sclerotic) thickened. M inimal mitral regurgitation. N o evidence of aortic valve regurgitation. M inimal tricuspid regurgitation. M inimal pulmonic regurgitation. (08/09/2008) Orders: Maral RYDER ([id number]) Gallo Long MD office visit: T he following medications were removed from the medication list: Vytorin 10-40 Mg Tabs (Ezetimibe-simvastatin) ..... Daily Her updated medication list for this problem includes: Altace 10 Mg Caps (Ramipril) ..... Daily Aspirin 325 Mg Tabs (Aspirin) ..... One tab. daily Simcor 500-20 Mg Tb24 (Niacin-simvastatin) ..... One tab. daily Tricor 145 Mg Tabs (Fenofibrate) ..... One tab. daily BP today: 120/77 Prior BP: / () N uclear Stress Findings: Resting EKG revealed minimal nonspecific ST segment abnormalities in the inferior leads, rate 79bpm. 0.9-1.0mm upsloping ST segment depression in the infeiror leads and maximum of 0.8mm upsloping ST segment depression in the lateral leads. The inferior leads changes may be considered to be borderline for ischemia. Normal myocardial perfusion without infarct or ischemia. Normal gated study with LVEF 59%. (01/01/2007) C ardiac Cath: EF 60%. 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 Normal EF with a limited anterolateral motion abnormality. (03/03/2003) C arotid Doppler/Duplex: normal: (08/21/2005) C HOL: 210 (07/26/2008) LDL: 113 (07/26/2008) HDL: 58 (07/26/2008) T (07/26/2008) Orders: S tress Test - Nuclear ([id number]) Gallo Long MD office visit: H er updated medication list for this problem includes: Altace 10 Mg Caps (Ramipril) ..... Daily Aspirin 325 Mg Tabs (Aspirin) ..... One tab. daily BP today: 120/77 Labs Reviewed: C hol: 210 (07/26/2008) HDL: 58 (07/26/2008) LDL: 113 (07/26/2008) T (07/26/2008) Orders: C omplete Echo ([id number]) Gallo Long MD office visit: C arotid Duplex Scan: n ormal: (08/21/2005) Echocardiogram: D iastolic dysfunction. EF 60%. Trace MR. Jeovany SUN. (01/07/2007) Her updated medication list for this problem includes: Aspirin 325 Mg Tabs (Aspirin) ..... One tab. daily Gallo Long MD office visit: H er updated medication list for this problem includes: Altace 10 Mg Caps (Ramipril) ..... Daily Aspirin 325 Mg Tabs (Aspirin) ..... One tab. daily BP today: 120/77 Prior BP: / () N uclear Stress Findings: Resting EKG revealed minimal nonspecific ST segment abnormalities in the inferior leads, rate 79bpm. 0.9-1.0mm upsloping ST segment depression in the infeiror leads and maximum of 0.8mm upsloping ST segment depression in the lateral leads. The inferior leads changes may be considered to be borderline for ischemia. Normal myocardial perfusion without infarct or ischemia. Normal gated study with LVEF 59%. (01/01/2007) C ardiac Cath: EF 60%. 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 Normal EF with a limited anterolateral motion abnormality. (03/03/2003) C arotid Doppler/Duplex: normal: (08/21/2005) C HOL: 210 (07/26/2008) LDL: 113 (07/26/2008) HDL: 58 (07/26/2008) T (07/26/2008) E chocardiogram: Diastolic dysfunction. EF 60%. Trace MR. Jeovany TI. (01/07/2007) Gallo Long MD Date Name Lipoprotein (a) B TYPE NATRIURETIC P EPTIDE (BNP) CRP, high sensitivit y Complete Echo BASIC METABOLIC PANE L W/EGFR Microalb/Creatinine Urine, Random CRP, high sensitivit y HEMOGLOBIN A1c PROBNP, N TERMINAL Complete Echo Stress Regadenoson STR - Adenosine Complete Echo Complete Echo STR - Adenosine Sleep Study LIPID PANEL HEMOGLOBIN A1c Complete Echo STR - Adenosine Complete Echo Complete Echo Stress Test - Adenos ine COMPREHENSIVE METABO LIC PANEL W/EGFR LIPID PANEL Complete Echo Stress Test - Nuclea r Complete Echo Stress Test - Nuclea r HISTORY OF PROCEDURES Procedure Date Procedure Name Provider Procedure Notes S tatus EKG Gallo Long MD complete d EKG Gallo Long MD complete d EKG Gallo Long MD complete d Regadenoson, 4 units Gallo Long MD completed Cardiolite, 2 units Gallo Long MD completed SPECT Images Gallo Long MD comple kushal Stress EKG Gallo Long MD complete d EKG Gallo Long MD complete d EKG Gallo Long MD complete d Stress EKG Juan Alejandra MD complet ed Regadenoson, 4 units Juan Alejandra MD completed Cardiolite, 2 units Juan Alejandra MD completed SPECT Images Juan Alejandra MD compl eted EKG Gallo Long MD complete d SNOMED-CT: [id number] Current Medications Documented Gallo Long MD completed EKG Gallo Long MD complete d SNOMED-CT: [id number] [id number] Current Medications Documented Gallo Long MD completed SNOMED-CT: [id number] Smoking Cessation Counseling Gallo Long MD completed SNOMED-CT: [id number] Current Medications Documented Gallo Long MD completed EKG Gallo Long MD complete d EKG [place] MD complete d ePrescribe - Check t his box if eRx is used Gallo Long MD completed EKG Gallo Long MD complete d EKG Gallo Long MD complete d EKG Gallo Long MD complete d
--- OUTSIDE RECORDS SUMMARY | 2024-12-13 11:57 | XMS_ITS | Clinical Summary ---
Author Organization [facility] Facility Address [address] [place] [address], [place] [address] Care Team Providers Care Implementation Consultant Name Role Phone Unavailable Primary Care Provider Unavailabl e Allergies No known active allergies Medications ARIPiprazole (ABILIFY) 5 MG tablet Take 5 mg by mouth 1 (one) time each day 06/08/20 21 Active aspirin 325 MG EC tablet Take 1 tablet by mouth 1 (one) time each day Active atorvastatin (LIPITOR) 40 MG tablet Take 40 mg by mouth 1 (one) time each day 06/08/20 21 Active LORazepam (ATIVAN) 1 MG tablet Take 2 tablets by mouth 3 (three) times a day 01/20/20 13 Active traZODone (DESYREL) 100 MG tablet Take 200 mg by mouth every night 06/18/20 21 Active venlafaxine XR (EFFEXOR-XR) 150 MG 24 hr capsule Take 150 mg by mouth 1 (one) time each day 04/22/20 21 Active Choline Fenofibrate (Fenofibric Acid) 135 MG capsule delayed-release Take 1 tablet by mouth 1 (one) time each day Active escitalopram (LEXAPRO) 10 MG tablet Take 10 mg by mouth 1 (one) time each day Active zoledronic acid (RECLAST) 5 MG/100ML solution Infuse 5 mg into a venous catheter ONCE A YEAR Active lisinopril 20 MG tablet TAKE 1 TABLET DAILY 90 tablet 3 10/15/20 24 Active Empagliflozin (Jardiance) 10 MG tablet Take 10 mg by mouth every morning 90 tablet 3 11/12/19 25 Active levothyroxine (SYNTHROID, LEVOTHROID) 50 MCG tablet Take 1 tablet (50 mcg total) by mouth 1 (one) time each day 90 tablet 12/01/19 25 Active levothyroxine (SYNTHROID, LEVOTHROID) 50 MCG tablet Take 1 tablet (50 mcg total) by mouth 1 (one) time each day 90 tablet 09/02/20 24 025 Discontinued Active Problems Problem Noted Date Diagnosed Date Osteoarthritis 08/17/2024 Gastroesophageal reflux disease 11/12/2022 Chronic fatigue syndrome 07/19/2021 Stage 3a chronic kidney disease 07/19/2021 Coronary arteriosclerosis 07/19/2021 Dysphagia 07/19/2021 Dysthymia 07/19/2021 Essential hypertension 07/19/2021 Noninfectious gastroenteritis 07/19/2021 Mixed hyperlipidemia 07/19/2021 Vitamin D deficiency 07/19/2021 Obesity 02/01/2008 Encounters Date Type Department Care Team Description 12/07/2024 Orders Only [facility], [address] [address] Wenceslao Solo MD 12/01/2024 Refill [facility], [facility] [address] [place] [phone] Wenceslao Solo MD 11/15/2024 Documentation Only [facility], [address] [address] Wenceslao Solo MD 11/12/2024 Office Communication [facility], [address] [address] Wenceslao Solo MD 11/12/2024 Refill [facility], [address] [address] Wenceslao Solo MD 11/11/2024 Refill [facility], [address] [address] Liliana Nielson CMA 11/10/2024 Refill [facility], [address] [address] Liliana Nielson CMA 11/10/2024 Office Communication [facility], [address] [address] Wenceslao Solo MD 10/15/2024 Refill [facility], [address] [address] Wenceslao Solo MD from Last 3 Months Social History Tobacco Use Types Packs/Day Years Used Date Smoking Tobacco: Former Cigarettes Q uit: 2020 Smokeless Tobacco: Never Tobacco Cessation:Counseling Given: Not Answered Alcohol Use Standard Drinks/Week Comments No 0 (1 standard drink = 0.6 oz pur e alcohol) Comments Unknown Sex and Gender Information Value Date Recorded Sex Assigned at Not on file Legal Sex Female 2:52 PM EDT Gender Identity Not on file Sexual Orientation Not on file Last Filed Vital Signs Vital Sign Reading Time Taken Comments Blood Pressure 150/78 08/17/2024 10:41 AM CDT Pulse 69 08/17/2024 10:41 AM CDT Temperature 36.3 C (97.4 F) 08/17/2024 10:41 AM CDT Respiratory Rate 18 08/17/2024 10:41 AM CDT Oxygen Saturation 98% 08/17/2024 10:41 AM CDT Inhaled Oxygen Concentration - - Weight 87.1 kg (192 lb) 08/17/2024 10:41 AM CDT Height 160 cm (5' 3 ) 05/18/2024 10:27 AM CDT Body Mass Index 34.01 05/18/2024 10:27 AM CDT Plan of Treatment Upcoming Encounters Date Type Department Care Team (Late st Contact Info) Description 12/14/2024 11:00 AM COLLABORATIVE PHYSICIAN Office Visit [facility], [facility] [address] [facility] [address] [place] [phone] Wenceslao Solo MD [address] [place] [address] 1 [place] [address] Health Maintenance Due Date Last Done Comments Breast Cancer Screening 1955 Pneumococcal Vaccine: 65+ Ye ars (1 of 2 - PCV) 1963 Colorectal Cancer Screening: Annual FOBT 2006 Colorectal Cancer Screening: Colonoscopy 2006 Colorectal Cancer Screening: Sigmoidoscopy 2006 Influenza Vaccine (#1) 2024 Hepatitis B Vaccine Aged Out No longe r eligible based on patient's age to complete this topic Procedures Procedure Name Priority Date/Time Associated Diagnosis Comments NOTE Routine 12/07/2024 9:18 AM COLLABORATIVE PHYSICIAN URINALYSIS RFX MICROSCOPIC Routine 12/07/2024 9:18 AM COLLABORATIVE PHYSICIAN HEMOGLOBIN A1C Routine 12/07/2024 9:18 AM COLLABORATIVE PHYSICIAN PROTEIN / CREATININE RATIO, URINE Routine 12/07/2024 9:18 AM COLLABORATIVE PHYSICIAN VITAMIN D 25 HYDROXY Routine 12/07/2024 9:18 AM COLLABORATIVE PHYSICIAN PTH, INTACT Routine 12/07/2024 9:18 AM COLLABORATIVE PHYSICIAN CBC AND DIFFERENTIAL Routine 12/07/2024 9:18 AM COLLABORATIVE PHYSICIAN COMPREHENSIVE METABOLIC PANEL Routine 12/07/2024 9:18 AM COLLABORATIVE PHYSICIAN PHOSPHATE ( PHOSPHORUS) Routine 12/07/2024 9:18 AM COLLABORATIVE PHYSICIAN LIPID PANEL Routine 12/07/2024 9:18 AM COLLABORATIVE PHYSICIAN from Last 3 Months Results * NOTE (12/07/2024 9:18 AM COLLABORATIVE PHYSICIAN) Note: See order comments Comment: This urine was analyzed for the presence of WBC, RBC, bacteria, casts, and other formed elements. Only those elements seen were reported. 12/07/2024 9:18 AM COLLABORATIVE PHYSICIAN 12/07/2024 9:24 AM COLLABORATIVE PHYSICIAN Narrative Resulting Agency Comment Performing Organization Information: Site ID: Name: [facility] Address: [address] [address] Director: Felipe Gao us Wenceslao Solo MD LAB CIYOYBEAIT-[id number] NSOLICITED RESULTS Final Result Performing Organization Address [facility] Co de Phone Number [address] See order comments [place] [address] * Protein, Total, Random Urine w/Creatinine (Protein/Creat Ratio) (12/07/2024 9:18 AM COLLABORATIVE PHYSICIAN) Creatinine, Ur 114 20 - 275 mg/dL See order comments Urine Protein/Creatin ine Ratio 88 24 - 184 mg/g creat See order comments Protein/Creatin ine Ratio, Urine 0.088 0.024 - 0.184 mg/mg creat See order comments Protein Urine Random 10 5 - 24 mg/dL See order comments 12/07/2024 9:18 AM COLLABORATIVE PHYSICIAN 12/07/2024 9:24 AM COLLABORATIVE PHYSICIAN Narrative Resulting Agency Comment Performing Organization Information: Site ID: Name: [facility] Address: [address] [place] [address] Director: Felipe Gao us Wenceslao Solo MD LAB URINE ORDERABLES Final R esult Performing Organization Address [facility] Co de Phone Number [address] See order comments [place] [address] * (ABNORMAL) Urinalysis Reflex Microscopic (12/07/2024 9:18 AM COLLABORATIVE PHYSICIAN) Color, Urine YELLOW YELLOW See ord er comments Appearance Urine CLEAR CLEAR See order comments Specific [place], UA 1.022 1.001 - 1.035 See order comments pH Urine 5.5 5.0 - 8.0 See order comments Glucose, Ur 3+(A) NEGATIVE See orde r comments Bilirubin, Urine NEGATIVE NEGATIVE See order comments Ketones, Urine NEGATIVE NEGATIVE See o rder comments Hemoglobin Ur Ql Strip NEGATIVE NEGATIVE See order comments Protein, Ur NEGATIVE NEGATIVE See orde r comments Nitrite, Urine NEGATIVE NEGATIVE See o rder comments WBC Esterase Urine 1+(A) NEGATIVE See order comments WBC, Urine 6-10(A) < OR = 5 /HPF See order comments RBC, Urine NONE SEEN < OR = 2 /HPF See order comments Epithelial Cells in Urine 10-20(A) < OR = 5 /HPF See order comments Trans Epithelial, Urine CANCELED < OR = 5 /HPF See order comments Comment:Result canceled by t he ancillary. Renal Epithelial Cells, Urine CANCELED < OR = 3 /HPF See order comments Comment:Result canceled by t he ancillary. Bacteria FEW(A) NONE SEEN /HPF See order comments Calcium Oxalate Crystals, Urine CANCELED NONE OR FEW /HPF See order comments Comment:Result canceled by t he ancillary. Triple Phosphate Crystals, Urine CANCELED NONE OR FEW /HPF See order comments Comment:Result canceled by t he ancillary. Uric Acid Crystals, Urine CANCELED NONE OR FEW /HPF See order comments Comment:Result canceled by t he ancillary. Amorphous Sediments CANCELED NONE OR FEW /HPF See order comments Comment:Result canceled by t he ancillary. Crystals CANCELED NONE SEEN /HPF See order comments Comment:Result canceled by t he ancillary. Hyaline Casts, Urine NONE SEEN NONE SEEN /LPF See order comments Granular Casts, Urine CANCELED NONE SEEN /LPF See order comments Comment:Result canceled by t he ancillary. Casts CANCELED NONE SEEN /LPF See order comments Comment:Result canceled by t he ancillary. Yeast, UA CANCELED NONE SEEN /HPF See order comments Comment:Result canceled by t he ancillary. Comments CANCELED See order comments Comment:Result canceled by t he ancillary. 12/07/2024 9:18 AM COLLABORATIVE PHYSICIAN 12/07/2024 9:24 AM COLLABORATIVE PHYSICIAN Narrative Resulting Agency Comment Performing Organization Information: Site ID: Name: [facility] Address: [address] [address] Director: Felipe Gao us Wenceslao Solo MD LAB URINE ORDERABLES Final R esult [address] See order comments [place] [address] * Vitamin D 25 Hydroxy (12/07/2024 9:18 AM COLLABORATIVE PHYSICIAN) Vitamin D, 25-OH, Total, IA 32 30 - 100 ng/mL See order comments Comment: Vitamin D Status 25-OH Vitamin D: Deficiency: <20 ng/mL Insufficiency: 20 - 29 ng/mL Optimal: > or = 30 ng/mL For 25-OH Vitamin D testing on patients on D2-supplementation and patients for whom quantitation of D2 and D3 fractions is required, the QuestAssureD(TM) 25-OH VIT D, (D2,D3), LC/MS/MS is recommended: order code 78259 (patients >2yrs). See Note 1 Note 1 For additional information, please refer to http://education.Airizu/faq/VGA191 (This link is being provided for informational/ educational purposes only.) 12/07/2024 9:18 AM COLLABORATIVE PHYSICIAN 12/07/2024 9:24 AM COLLABORATIVE PHYSICIAN Narrative Resulting Agency Comment Performing Organization Information: Site ID: [place] Name: [facility] Address: [address] [place], [place] [address]ner [facility] [place] [address] Director: Felipe Gao MD us Wenceslao Solo MD LAB BLOOD ORDERABLES Final R esult [facility] [facility] See order comments [place] [address] * (ABNORMAL) CBC and Differential (12/07/2024 9:18 AM COLLABORATIVE PHYSICIAN) WBC 4.3 3.8 - 10.8 Thousand/ uL See order comments RBC 4.14 3.80 - 5.10 Million/u L See order comments Hemoglobin 13.7 11.7 - 15.5 g/dL See order comments Hematocrit 41.9 35.0 - 45.0 % See order comments MCV 101.2(H) 80.0 - 100.0 fL See order comments MCH 33.1(H) 27.0 - 33.0 pg See order comments MCHC 32.7 32.0 - 36.0 g/dL See order comments Comment: For adults, a slight decrease in the calculated MCHC value (in the range of 30 to 32 g/dL) is most likely not clinically significant; however, it should be interpreted with caution in correlation with other red cell parameters and the patient's clinical condition. RDW 11.8 11.0 - 15.0 % See order comments Platelets 271 140 - 400 Thousand/ uL See order comments MPV 10.1 7.5 - 12.5 fL See order comments Neutrophils Absolute 2,537 1,500 - 7,800 cells/uL See order comments Band Neutrophils Absolute, Manual Count CANCELED 0 - 750 cells/uL See order comments Comment:Result canceled by t he ancillary. Metamyelocytes Absolute CANCELED 0 cells/uL See order comments Comment:Result canceled by t he ancillary. Absolute Myelocytes CANCELED 0 cells/uL See order comments Comment:Result canceled by t he ancillary. Absolute Promyelocytes CANCELED 0 cells/uL See order comments Comment:Result canceled by t he ancillary. Lymphocytes Absolute 1,277 850 - 3,900 cells/uL See order comments Monocytes Absolute 314 200 - 950 cells/uL See order comments Eosinophils Absolute 142 15 - 500 cells/uL See order comments Basophils Absolute 30 0 - 200 cells/uL See order comments Blasts Absolute CANCELED 0 cells/uL See order comments Comment:Result canceled by t he ancillary. NRBC Absolute CANCELED 0 cells/uL See order comments Comment:Result canceled by t he ancillary. Neutrophils Relative 59 % See order comments Bands Absolute CANCELED % See o rder comments Comment:Result canceled by t he ancillary. Metamyelocytes Percent CANCELED % See order comments Comment:Result canceled by t he ancillary. Myelocytes Relative CANCELED % See order comments Comment:Result canceled by t he ancillary. Promyelocytes Relative CANCELED % See order comments Comment:Result canceled by t he ancillary. Lymphocytes 29.7 % See orde r comments Variant lymphocytes/100 WBC (Bld) CANCELED 0 - 10 % See order comments Comment:Result canceled by t he ancillary. Monocytes 7.3 % See order comments Eosinophils 3.3 % See orde r comments Basophils Relative 0.7 % S ee order comments Blasts CANCELED % See order comments Comment:Result canceled by t he ancillary. nRBC CANCELED 0 /100 WBC See order comments Comment:Result canceled by t he ancillary. Comment(s) CANCELED See order comments Comment:Result canceled by t he ancillary. 12/07/2024 9:18 AM COLLABORATIVE PHYSICIAN 12/07/2024 9:24 AM COLLABORATIVE PHYSICIAN Narrative Resulting Agency Comment Performing Organization Information: Site ID: Name: [facility] Address: [address] [address] Director: Felipe Gao us Wenceslao Solo MD LAB BLOOD ORDERABLES Final R esult Performing Organization Address City/[facility]/ZIP Co de Phone Number [address] See order comments [place] [address] * Phosphorus (12/07/2024 9:18 AM COLLABORATIVE PHYSICIAN) Phosphorus 4.0 2.1 - 4.3 mg/dL See order comments 12/07/2024 9:18 AM COLLABORATIVE PHYSICIAN 12/07/2024 9:24 AM COLLABORATIVE PHYSICIAN Narrative Resulting Agency Comment Performing Organization Information: Site ID: Name: [facility] Address: [address] [address] Director: Felipe Gao us Wenceslao Solo MD LAB BLOOD ORDERABLES Final R esult Performing Organization Address City/[facility]/ZIP Co de Phone Number [address] See order comments [place] [address] * (ABNORMAL) PTH, Intact (12/07/2024 9:18 AM COLLABORATIVE PHYSICIAN) Parathyroid Hormone, Intact 13(L) 16 - 77 pg/mL See order comments Comment: Interpretive Guide Intact PTH Calcium ------- Normal Parathyroid Normal Normal Hypoparathyroidism Low or Low Normal Low Hyperparathyroidism Primary Normal or High High Secondary High Normal or Low Tertiary High High Non-Parathyroid Hypercalcemia Low or Low Normal High 12/07/2024 9:18 AM COLLABORATIVE PHYSICIAN 12/07/2024 9:24 AM COLLABORATIVE PHYSICIAN Narrative Resulting Agency Comment Performing Organization Information: Site ID: [place] Name: [facility] Address: [address] [address] Director: Felipe Gao MD us Wenceslao Solo MD LAB BLOOD ORDERABLES Final R esult [facility] [facility] See order comments [place] [address] * (ABNORMAL) Hemoglobin A1c (12/07/2024 9:18 AM COLLABORATIVE PHYSICIAN) Hemoglobin A1C 6.1(H) <5.7 % of total Hgb See order comments Comment: For someone without known diabetes, a hemoglobin A1c value between 5.7% and 6.4% is consistent with prediabetes and should be confirmed with a follow-up test. For someone with known diabetes, a value <7% indicates that their diabetes is well controlled. A1c targets should be individualized based on duration of diabetes, age, comorbid conditions, and other considerations. This assay result is consistent with an increased risk of diabetes. Currently, no consensus exists regarding use of hemoglobin A1c for diagnosis of diabetes for children. 12/07/2024 9:18 AM COLLABORATIVE PHYSICIAN 12/07/2024 9:24 AM COLLABORATIVE PHYSICIAN Narrative Resulting Agency Comment Performing Organization Information: Site ID: [place] Name: [facility] Address: [facility] [place] [address] Director: Felipe Gao Wenceslao Solo MD LAB BLOOD ORDERABLES Final [facility] Performing Organization Address [facility]/ZIP Co de Phone Number [address] See order comments [place] [address] * Lipid panel (12/07/2024 9:18 AM COLLABORATIVE PHYSICIAN) Cholesterol 156 <200 mg/dL See ord er comments HDL 67 > OR = 50 mg/dL See order comments Triglycerides 72 <150 mg/dL See o rder comments LDL Direct 74 mg/dL (calc) See order comments Comment: Reference range: <100 Desirable range <100 mg/dL for primary prevention; <70 mg/dL for patients with CHD or diabetic patients with > or = 2 CHD risk factors. LDL-C is now calculated using the Brianne calculation, which is a validated novel method providing better accuracy than the Friedewald equation in the estimation of LDL-C. Patrick SMITH et al. YARY. 2013;310(19): 1466-0165 (http://education.Exegy.Heretic Films/faq/QKQ651) Chol/HDL Ratio 2.3 <5.0 (calc) See order comments Non HDL Cholesterol 89 <130 mg/dL (calc) See order comments Comment: For patients with diabetes plus 1 major ASCVD risk factor, treating to a non-HDL-C goal of <100 mg/dL (LDL-C of <70 mg/dL) is considered a therapeutic option. 12/07/2024 9:18 AM COLLABORATIVE PHYSICIAN 12/07/2024 9:24 AM COLLABORATIVE PHYSICIAN Narrative Resulting Agency Comment Performing Organization Information: Site ID: Name: [facility] Address: [address] [place] [address] Director: Felipe Gao us Wenceslao Solo MD LAB BLOOD ORDERABLES Final R esult [facility] See order comments [place] [address] * (ABNORMAL) Comprehensive Metabolic Panel (12/07/2024 9:18 AM COLLABORATIVE PHYSICIAN) Glucose 104(H) 65 - 99 mg/dL See order comments Comment: Fasting reference interval For someone without known diabetes, a glucose value between 100 and 125 mg/dL is consistent with prediabetes and should be confirmed with a follow-up test. BUN 16 7 - 25 mg/dL See order comments Creatinine 1.37(H) 0.50 - 1.05 mg/dL See order comments eGFR CKD-EPI CR 2020 42(L) > OR = 60 mL/min/1.7 3m2 See order comments BUN/Creatinine Ratio 12 6 - 22 (calc) See order comments Sodium 135 135 - 146 mmol/L See order comments Potassium 4.1 3.5 - 5.3 mmol/L See order comments Chloride 101 98 - 110 mmol/L See order comments Bicarbonate (CO2) 24 20 - 32 mmol/L See order comments Calcium 10.2 8.6 - 10.4 mg/dL See order comments Total Protein 7.0 6.1 - 8.1 g/dL See order comments Albumin 4.6 3.6 - 5.1 g/dL See order comments Globulin, Total 2.4 1.9 - 3.7 g/dL (calc) See order comments A/G Ratio 1.9 1.0 - 2.5 (calc) See order comments Total Bilirubin 0.5 0.2 - 1.2 mg/dL See order comments Alkaline Phosphatase 38 37 - 153 U/L See order comments AST (SGOT) 22 10 - 35 U/L See order comments ALT (SGPT) 23 6 - 29 U/L See orde r comments 12/07/2024 9:18 AM COLLABORATIVE PHYSICIAN 12/07/2024 9:24 AM COLLABORATIVE PHYSICIAN Narrative Resulting Agency Comment Performing Organization Information: Site ID: Name: [facility] Address: [address] [place] [address] Director: Felipe Gao us Wenceslao Solo MD LAB BLOOD ORDERABLES Final R esult [address] See order comments [place] [address] from Last 3 Months Insurance MEDICARE [facility]
--- OUTSIDE RECORDS SUMMARY | 2024-12-13 11:57 | XMS_ITS | Encounter Summary ---
Author Organization [facility] Address [address] [facility] [place] [address] Phone Care Team Providers Care Environmental Conservation Professor Name Role Phone Unavailable Primary Care Provider Unavailabl e Reason for Visit * Reason Comments Med Refill Encounter Details Date Type Department Care Team (Late st Contact Info) Description 06/06/2023 Refill [place] [email or web address] [place] [address] [facility] [address] [place] [address] Wenceslao Solo MD [address] [facility] [address] [place] [address] Social History Tobacco Use Types [...] Encounters Date Type Department Care Team (Late Contact Info) Description 12/14/2024 11:00 AM COLD STORAGE WORKER Office Visit [place] [email or web address] [place] [address] [facility] [address] [place] [address] Wenceslao Solo MD [address] [facility] [place] [address] documented as of this encounter Visit Diagnoses Not on filedocumented in this encounter
--- OUTSIDE RECORDS SUMMARY | 2024-12-13 11:57 | XMS_ITS | Encounter Summary ---
Author Organization [facility] [employer] [facility] Address [address] [facility] [place] [address] Phone Care Team Providers Care Loom Repairer Name Role Phone Unavailable Primary Care Provider Unavailabl e Reason for Visit * Reason Comments Med Refill Encounter Details Date Type Department Care Team (Late st Contact Info) Description 03/26/2023 [facility]ill [facility] [address] [facility] [address] [place] [address] Wenceslao Solo MD [address] [facility] 1 [place] [address] Social History Tobacco Use Types [...] (Late Contact Info) Description 12/14/2024 11:00 AM CREDIT OPERATIONS SPECIALIST Office [facility] [address] [facility] [address] [place] [address] Wenceslao Solo MD [address] [facility] [place] [address] documented as of this encounter Visit Diagnoses Not on filedocumented in this encounter
--- OUTSIDE RECORDS SUMMARY | 2024-12-13 11:57 | XMS_ITS | Data Portability ---
Author Organization [place] - [facility], Main Office Address [address] [place] [address] Care Team Providers Care Tribal Delegate Name Role Phone ARCHIE MONGE Primary Care Provider ARCHIE MONGE Referring Provider Assessment No assessment recorded. Plan of Treatment Reminders Order Date Submit Date Provider Last Modified By Organization Details Last Modified Time Details Appointments None recorded. Lab lipid panel, serum [address] - Outpatient Lab, [address] [place], [address], 5 14:51:34 CMP, serum or plasma [address] - Outpatient Lab, [address] [place], [address], 5 14:51:35 CBC w/ auto diff [address] - Outpatient Lab, [address] [place], [address], 5 14:51:35 TSH, serum or plasma [address] - Outpatient Lab, [address] [place], [address], 5 14:51:35 T4, free, serum [address] - Outpatient Lab, [address] [place], [address], 5 14:51:36 lipid panel, serum 024 024 [facility] - Outpatient Lab, [address] [place], [address], 4 17:08:00 CMP, serum or plasma [id number] [place] [address] - Outpatient Lab, [address] [place], [address], 4 17:08:00 CBC w/ auto diff [id number] [place] [address] - Outpatient Lab, [address] [place], [address], 4 17:08:00 TSH, serum or plasma [id number] [place] [address] Outpatient Lab, [address] [place], [address], 4 17:07:59 T4, free, serum [id number] [place] [address] Outpatient Lab, [address] [place], [address], 4 17:08:00 PTH (parathyr oid hormone), intact, serum or plasma [id number] [place] [address] Outpatient Lab, [address] [place], [address], 4 17:44:27 phosphoru s, serum or plasma [id number] [place] [address] Outpatient Lab, [address] [place], [address], 4 17:44:27 vitamin D, 25-hydrox y, total, serum [id number] [place] [address] Outpatient Lab, [address] [place], [address], 4 17:44:27 uric acid, serum or plasma 024 024 [facility] - Outpatient Lab, [address] [place], [address], 4 17:44:27 CBC w/ auto diff 024 024 [facility] - Outpatient Lab, [address] [place], [address], 4 17:44:26 lipid panel, serum 024 024 [id number] [facility] - Outpatient Lab, [address] [place], [address], 4 17:44:26 CMP, serum or plasma 024 024 [id number] [facility] - Outpatient Lab, [address] [place], [address], 4 17:44:27 TSH, serum or plasma 024 024 [id number] [facility] - Outpatient Lab, [address] [place], [address], 4 17:44:26 T4, free, serum 024 024 [id number] [facility] - Outpatient Lab, [address] [place], [address], 4 17:44:26 HbA1c (hemoglob in A1c), blood 023 023 [id number] [facility] - Outpatient Lab, [address] [place], [address], 3 09:37:15 CBC w/ auto diff 023 023 [id number] [facility] - Outpatient Lab, [address] [place], [address], 3 09:37:14 lipid panel, serum 023 023 [id number] [facility] - Outpatient Lab, [address] [place], [address], 3 09:37:15 CMP, serum or plasma 023 023 [facility] - Outpatient Lab, [address] [place], [address], 3 09:37:15 TSH, serum or plasma 023 023 [id number] [facility] - Outpatient Lab, [address] [place], [address], 3 09:37:14 T4, free, serum 023 023 [id number] [facility] - Outpatient Lab, [address] [place], [address], 3 09:37:14 vitamin D, 25-hydrox y, total, serum 023 023 [id number] [facility] - Outpatient Lab, [address] [place], [address], 3 10:03:09 lipid panel, serum 023 023 [id number] [facility] - Outpatient Lab, [address] [place], [address], 3 10:03:08 CMP, serum or plasma 023 023 [id number] [facility] - Outpatient Lab, [address] [place], [address], 3 10:03:08 TSH, serum or plasma 023 023 [id number] [facility] - Outpatient Lab, [address] [place], [address], 3 10:03:08 T4, free, serum 023 023 [facility] - Outpatient Lab, [address] [place], [address], 3 10:03:08 CBC w/ auto diff 023 023 [id number] [facility] - Outpatient Lab, [address] [place], [address], 3 10:03:08 Referral None recorded. Procedures None recorded. Surgeries None recorded. Imaging None recorded. Medication Orders None recorded. Patient TargetsNo targets recorded. Patient Instructions Encounter Date Encounter Id Patient Instructions Last Modified By Organization Details Last Modified Time 01/14/2023 [id number] Follow-up for coronary artery disease -hypertension-hype rlipidemia-hypothy roidism- depressive disorder. Plan to check blood work consisting of CBC, CMP, lipid, thyroid and vitamin-D level. Check a bone density scan. Has up-to-date on mammography and colonoscopy. Follow-up in six months DEXA scan [email or web address] Not available 01/14/2023 11:52:26 07/15/2023 [id number] Coronary artery disease -hypertension-hypo thyroidism -impaired fasting glycemia -obesity class one all clinically stable. Recommended influenza, RSV, shingles, COVID immunizations. All clinically stable otherwise. Does need blood work in the form of CBC, CMP, lipid, thyroid, hemoglobin A1c. Already has mammographies and bone density scan scheduled. Is not due for any colon screens at this time. Follow-up in six months Portions of the record may have been created with voice recognition software. Occasional wrong-word or s ound-a-like substitutions may have occurred due to the inherent limitations of voice recognition software. Read the chart carefully and recognize, using context, where substitutions have occurred. [email or web address] Not available 07/15/2023 11:58:58 12/12/2023 [id number] Follow-up krishna ry artery disease -hypertension-hypo thyroidism -hyperlipidemia-ch ronic kidney disease stage IIIA. All clinically stable. Check blood work consisting of CBC, CMP, lipid, thyroid, PTH, phosphorus. Recheck back in six months. Portions of the record may have been created with voice recognition software. Occasional wrong-word or s ound-a-like substitutions may have occurred due to the inherent limitations of voice recognition software. Read the chart carefully and recognize, using context, where substitutions have occurred. [email or web address] [id number] Not available 12/12/2023 12:30:43 06/10/2024 [id number] Follow-up krishna ry artery disease, hypertension, hypothyroidism, hyperlipidemia and chronic kidney disease. All clinically stable. Will check a CMP lipid and thyroid panel. Continue on current Rx follow-up in six months. Next Appointment: 6 Months Approximate Date: 12/07/2024 Portions of the record may have been created with voice recognition software. Occasional wrong-word or s ound-a-like substitutions may have occurred due to the inherent limitations of voice recognition software. Read the chart carefully and recognize, using context, where substitutions have occurred. [email or web address] [id number] Not available 06/10/2024 12:15:56 Reason for Referral None Reported. Results Created Date Observation Date Name Description Value Unit Range Abnormal Flag Note LastModifiedBy Organization Detail LastModifiedTime 10/02/20 23 09/30/2023 DEXA No observ ation record ed. [address], [place], [address], 10/02/2023 10:26:37 08/25/20 24 08/25/2024 XR, knee No observ ation record ed. [address], [place], [address], 08/25/2024 14:13:54 Result Notes None recorded. Problems Name Problem SNOMED Code Status Onset Date Resolution Date Notes Provider Name and Address Organization Details Recorded Time Pes anserinus bursitis of left knee 55518634451 77373 Active 2019 Not Available [facility] 3 07:31:47 History of left total knee replaceme nt 71237590136 Active 2019 Not Available [facility] 3 07:31:47 Acute sinusitis 95935115 Active 2021 Not Available [facility] 3 07:31:47 Radiother apy follow-up 066800556 Active Not Available [facility] 3 07:31:47 Gastroeso phageal reflux disease 299073868 Active 2019 Not Available [facility] 3 07:31:47 Microscop ic colitis 345625315 Active 2018 Not Available [facility] 3 07:31:47 Pure hyperchol esterolem ia 331087527 Active Not Available [facility] 3 07:31:47 Pruritic disorder 762897749 Active Not Available [facility] 3 07:31:47 Knee pain Active Not Available [facility] 3 07:31:47 Vitamin D deficienc y 10485682 Active 2021 Not Available [facility] 3 07:31:48 Depressiv e disorder 41338604 Active Not Available [facility] 3 07:31:48 Eosinophi lic gastroent eritis 979775975 Completed Not Available [facility] 3 07:31:48 Impaired fasting glycemia 301487694 Active 2016 Not Available [facility] 3 07:31:48 Osteoarth ritis 814665257 Active Not Available [facility] 3 07:31:48 Dysphagia 68391582 Active Not Available [facility] 3 07:31:48 Hypothyro idism 36476977 Active 2017 Not Available [facility] 3 07:31:48 Chronic kidney disease stage 3 312513363 Active Not Available [facility] 3 07:31:48 Coronary arteriosc lerosis 80520971 Active Not Available [facility] 3 07:31:48 Hyperlipi demia 39122935 Active 2017 Not Available [facility] 3 07:31:49 Essential hypertens ion 78383564 Active Not Available [facility] 3 07:31:49 Diarrhea 50301419 Active Not Available [facility] 3 07:31:49 Derangeme nt of knee 03792031 Active Not Available [facility] 3 07:31:49 Fatigue 40095885 Active Not Available [facility] 3 07:31:49 Senile osteoporo sis 72187709 Active 2022 Michelle Mckeon null, [facility] [employer] [facility] 3 12:02:01 Obese class I 41368917044 4107 Active 2022 Archie Monge MD [address], [place], [address] , [facility] [employer] [facility] [employer] [facility] 3 11:55:48 Acute bronchiti s 47354879 Active 2022 Archie Monge MD [address], [place], [address] , [facility] [employer] [facility] 3 12:46:15 Bee sting 103054155 Active 2023 Archie Monge MD [address], [place], [address] , [email or web address] [facility] 4 17:24:41 Pain of right knee joint 45419030446 4100 Active 2023 GUILLERMO Lamb, [email or web address] [facility] [employer] [facility] 4 16:09:35 Notes:Some problems listed i n Document: #[id number] could not be added to this patient's chart. Please review this document and add these problems to the patient's chart manually as needed. Problem Notes None recorded. Procedures Surgical History None recorded. Imaging Results Imaging Date Name Status LastModified by Organiz ation Details LastModified Time 09/30/2023 DEXA completed [email or web address] [facility] [address], [place], [address], 10/02/2023 10:26:37 08/25/2024 XR, knee completed [email or web address] [facility] [address] [facility] [address], [place], [address], 08/25/2024 14:13:54 Procedure Notes None recorded. Medical Equipment None Reported. Allergies Allergen ID Allergen Name Allergen Category Reaction Reaction Severity Criticality Documentation Date Start Date Code Code System Note Provider Name and Address Organization Details Recorded Time 17312 Zoloft medicatio n diarrhea Not available Not available 12/18/2022 36036 RxNorm Not Available [facility], [facility] 3 07:37:22 Medications Name Sig Start Date Stop Date Status Note LastModified by Organization Details LastModified Time amoxicill in 500 mg capsule TAKE ONE CAPSULE BY MOUTH THREE TIMES DAILY UNTIL ALL TAKEN 12/09 completed Not Available Not Available Not Available atorvasta tin 40 mg tablet TAKE 1 TABLET BY MOUTH DAILY active Not Available Not Available No t Available Augmentin 875 mg-125 mg tablet Take 1 tablet every 12 hours by oral route. 03/03 completed Not Available Not Available Not Available prednison e 10 mg tablet 03/02 completed Not Available Not Available Not Available Effexor XR 75 mg capsule,e xtended release Take 1 capsule every day by oral route. 2013 active Not Available Not Available Not Avai lable Carafate 1 gram tablet Take 1 tablet 4 times a day by oral route. active Not Available Not Available No t Available azithromy hong 250 mg tablet TAKE 2 TABLETS (500 MG) BY ORAL ROUTE ONCE DAILY FOR 1 DAY THEN 1 TABLET (250 MG) BY ORAL ROUTE ONCE DAILY FOR 4 DAYS 06/10 completed Not Available Not Available Not Available aspirin 325 mg tablet Take 1 tablet every day by oral route. 05/04 completed Not Available Not Available Not Available ofloxacin 0.3 % eye drops 07/15 completed Not Available Not Available Not Available benzonata te 200 mg capsule TAKE 1 CAPSULE BY MOUTH THREE TIMES DAILY 06/10 completed Not Available Not Available Not Available Ativan 1 mg tablet Take 2 tablets 3 times a day by oral route. 07/[address] Burks Not Available Not Available Not Available Remeron 15 mg tablet Take 1 tablet every day by oral route at bedtime. 03/26 completed Not Available Not Available Not Available lisinopri l 20 mg tablet Take 1 tablet every day by oral route. active Not Available Not Available No t Available alendrona te 70 mg tablet TAKE 1 TABLET BY MOUTH EVERY WEEK 01/14 completed Not Available Not Available Not Available terconazo le 0.8 % vaginal cream INSERT 1 APPLICAT ORFUL VAGINALL Y AT BEDTIME FOR 3 NIGHTS active Not Available Not Available No t Available venlafaxi ne ER 150 mg capsule,e xtended release 24 hr TAKE 1 CAPSULE BY MOUTH EVERY DAY active Not Available Not Available No t Available promethaz ine 6.25 mg-codein e 10 mg/5 mL syrup Take 5 ML EVERY 6 HOURS by oral route PRN for cough active Not Available Not Available No t Available aspirin 81 mg tablet,de layed release Take 1 tablet every day by oral route. active Not Available Not Available No t Available tramadol 50 mg tablet 01/07 completed Not Available Not Available Not Available fenofibra te micronize d 134 mg capsule Take 1 capsule every day by oral route. 07/06 completed Not Available Not Available Not Available ketorolac 0.5 % eye drops 07/15 completed Not Available Not Available Not Available prednison e 10 mg tablets in a dose pack Take 1 tab by mouth, 3 times a day for 3 daysTake 1 tab by mouth 2 times a day for 2 daysTake 1 tab by mouth once a day for 1 day 03/02 completed Not Available Not Available Not Available prednisol one acetate 1 % eye drops,felipe pension 07/15 completed Not Available Not Available Not Available Altace 10 mg capsule Take 1 capsule every day by oral route. 2013 active Not Available Not Available Not Avai lable trazodone 100 mg tablet TAKE UP TO 2 TABLETS BY MOUTH AT BEDTIME active Not Available Not Available No t Available Kenalog 10 mg/mL suspensio n for injection In office injectio n administ ered by the provider 11/09 completed [facility]: 0003-049 02-06 Not Available Not Available Not Available lorazepam 2 mg tablet TAKE 1 TABLET BY MOUTH THREE TIMES DAILY FOR 7 DAYS active Not Available Not Available No t Available pantopraz ole 40 mg tablet,de layed release Take 1 tablet twice a day by oral route. active Not Available Not Available No t Available ferrous sulfate 325 mg (65 mg iron) tablet Take 1 tablet every day by oral route. 2014 active Not Available Not Available Not Avai lable clotrimaz ole-betam ethasone 1 %-0.05 % topical cream APPLY TOPICALL Y TO THE AFFECTED AND SURROUND ING AREAS TWICE DAILY IN THE MORNING AND IN THE EVENING FOR 2 WEEKS 06/10 completed Not Available Not Available Not Available lisinopri l 10 mg tablet TAKE 1 TABLET BY MOUTH EVERY DAY 07/15 completed Not Available Not Available Not Available Synthroid 75 mcg tablet Take 1 tablet every day by oral route. 2013 active Not Available Not Available Not Avai lable Synthroid 50 mcg tablet TAKE 1 TABLET BY MOUTH EVERY DAY active Not Available Not Available No t Available Sinemet 25 mg-100 mg tablet one and a half tablets daily 2014 active Not Available Not Available Not Avai lable Levaquin 500 mg tablet Take 1 tablet every 24 hours by oral route. 01/07 completed Not Available Not Available Not Available Cameron 7.5 mg-325 mg tablet 01/07 completed Not Available Not Available Not Available methylpre dnisolone 4 mg tablets in a dose pack FOLLOW PACKAGE DIRECTIO NS 12/09 completed Not Available Not Available Not Available Lomotil 2.5 mg-0.025 mg tablet Take 1 tablet 4 times a day by oral route. 11/09 completed Not Available Not Available Not Available Vitamin D2 1,250 mcg (50,000 unit) capsule Take 1 capsule every week by oral route. 11/09 completed Not Available Not Available Not Available cefdinir 300 mg capsule Take 1 capsule every 12 hours by oral route. 03/03 completed Not Available Not Available Not Available lisinopri l 2.5 mg tablet Take 1 tablet every day by oral route. 03/02 completed Not Available Not Available Not Available chlorprom azine 50 mg tablet Take 1 tablet every 6 hours by oral route. 11/09 completed Not Available Not Available Not Available AcipHex 20 mg tablet,de layed release Take 1 tablet every day by oral route. 2013 active Not Available Not Available Not Avai lable Topamax 100 mg tablet 2 tablets am and one tablet pm 11/09 completed Not Available Not Available Not Available Ventolin HFA 90 mcg/actua tion aerosol inhaler Inhale 2 puffs every 4 hours by inhalati on route. active Not Available Not Available No t Available Bactrim DS 800 mg-160 mg tablet Take 1 tablet every 12 hours by oral route. 06/30 completed Not Available Not Available Not Available escitalop richardson 10 mg tablet 12/09 completed Not Available Not Available Not Available escitalop richardson 20 mg tablet Take 1 tablet every day by oral route. active Not Available Not Available No t Available aripipraz ole 5 mg tablet TAKE 1 TABLET BY MOUTH EVERY NIGHT AT BEDTIME active Not Available Not Available No t Available cholestyr amine (with sugar) 4 gram oral powder Take 1 scoop twice a day by oral route. 05/29 completed Not Available Not Available Not Available Pepcid AC 20 mg tablet Take 1 tablet twice a day by oral route. 2021 active Not Available Not Available Not Avai lable escitalop richardson 5 mg tablet TAKE 1 TABLET BY MOUTH EVERY DAY 12/09 completed Not Available Not Available Not Available fenofibra te micronize d 130 mg capsule Take 1 capsule every day by oral route. 05/04 completed Not Available Not Available Not Available multivita min daily 01/14 completed Not Available Not Available Not Available lidocaine (PF) 10 mg/mL (1 %) injection solution In office injectio n administ ered by the provider 11/09 completed [facility]: 0409-427 04-05 Not Available Not Available Not Available aripipraz ole 2 mg tablet Take 1 tablet every day by oral route. 07/06 completed Not Available Not Available Not Available Reclast 5 mg/100 mL intraveno us piggyback yearly active Not Available Not Available No t Available Simcor 500 mg-20 mg tablet,ex tended release Take 1 tablet every day by oral route. 2013 active Not Available Not Available Not Avai lable venlafaxi ne ER 150 mg tablet,ex tended release 24 hr Take 1 tablet every day by oral route. 05/04 completed Not Available Not Available Not Available fenofibri c acid (choline) 135 mg capsule,d elayed release Take 1 capsule every day by oral route. active Not Available Not Available No t Available Prolia every 6 months 01/14 completed Not Available Not Available Not Available Simcor 1,000 mg-40 mg tablet,ex tended release Take 1 tablet every day by oral route. 2014 active Not Available Not Available Not Avai lable Xarelto 10 mg tablet 01/07 completed Not Available Not Available Not Available Vitamin D2 twice a day 03/25 completed Not Available Not Available Not Available Jardiance 10 mg tablet Take 1 tablet every day by oral route. active Not Available Not Available No t Available Vitals Date Recorded Body height Body mass index (BMI) Body weight Heart rate Body temperature Oxygen saturation Oxygen saturation in Arterial blood by Pulse oximetry Systolic blood pressure Diastolic blood pressure Provider Name and Address Organization Details Last Updated DateTime 3 162.56 cm 34.2 kg/m2 79096.8 8 g 93 /min 97 [degF] 97 % 97 % 120 mm[Hg] 78 mm[Hg] [employer] 3 11:38:53 Date Recorded Body height Body mass index (BMI) Body weight Heart rate Body temperature Oxygen saturation Oxygen saturation in Arterial blood by Pulse oximetry Systolic blood pressure Diastolic blood pressure Provider Name and Address Organization Details Last Updated DateTime 3 162.56 cm 34.5 kg/m2 14132.0 7 g 95 /min 97 [degF] 98 % 98 % 132 mm[Hg] 80 mm[Hg] [facility] [employer] 3 11:40:08 Date Recorded Body height Body mass index (BMI) Body weight Heart rate Body temperature Oxygen saturation Oxygen saturation in Arterial blood by Pulse oximetry Systolic blood pressure Diastolic blood pressure Provider Name and Address Organization Details Last Updated DateTime 4 162.56 cm 34.7 kg/m2 63315.6 6 g 73 /min 97.9 [degF] 96 % 96 % 130 mm[Hg] 82 mm[Hg] MARTHA Long [employer] 4 12:01:28 Date Recorded Body height Body mass index (BMI) Body weight Heart rate Body temperature Oxygen saturation Oxygen saturation in Arterial blood by Pulse oximetry Systolic blood pressure Diastolic blood pressure Provider Name and Address Organization Details Last Updated DateTime 4 162.56 cm 33.6 kg/m2 21236.1 g 93 /min 97.2 [degF] 95 % 95 % 124 mm[Hg] 82 mm[Hg] MARTHA Long [employer] 4 11:56:35 Date Recorded Body height Body mass index (BMI) Body weight Heart rate Body temperature Oxygen saturation Oxygen saturation in Arterial blood by Pulse oximetry Systolic blood pressure Diastolic blood pressure Provider Name and Address Organization Details Last Updated DateTime 5 162.56 cm 33.1 kg/m2 59669.3 3 g 102 /min 97 [degF] 97 % 97 % 122 mm[Hg] 70 mm[Hg] Deirdre Tee [employer] 5 14:39:38 Social History Question Answer Notes LastModified by Organizat ion Details LastModified Time Tobacco Smoking Status Never Smoker Not Available [facility] 12/18/2022 07:27:07 Do You Have An Advance Directive? No [id number] Information not available 12/18/2022 What Is Your Level Of Alcohol Consumption? None [id number] Information not available 12/18/2022 In The 14 Days Before Symptom Onset, Have You Had Close Contact With A Laboratory-confir med COVID-19 While That Case Was Ill? No [id number] Information not available 12/18/2022 In The 14 Days Before Symptom Onset, Have You Had Close Contact With A Person Who Is Under Investigation For COVID-19 While That Person Was Ill? No [id number] Information not available 12/18/2022 What Type Of Diet Are You Following? REGULAR [id number] Information not available 12/18/2022 Have There Been Any Changes To Your Family Or Social Situation? No [id number] Information not available 12/18/2022 What Is The Fluoride Status Of Your Home? Unknown [id number] Information not available 12/18/2022 Are There Any Guns Present In Your Home? Yes [id number] Information not available 12/18/2022 Do You Use Insect Repellent Routinely? No [id number] Information not available 12/18/2022 Where Do You Live? [place] [id number] Information not available 12/18/2022 Do You Have A Medical Power Of Legal Technician? No [id number] Information not available 12/18/2022 What Was The Date Of Your Most Recent Tobacco Screening? 03/08/2022 [id number] Information not available 12/18/2022 Do You Have Any Pets? Yes [id number] Information not available 12/18/2022 What Is Your Relationship Status? [id number] Information not available 12/18/2022 Do You Use Your Seat Belt Or Car Seat Routinely? Yes [id number] Information not available 12/18/2022 Do You Have Smoke And Carbon Monoxide Detectors In Your Home? Yes [id number].[id number] Information not available 12/18/2022 Are You Passively Exposed To Smoke? No [id number] Information not available 12/18/2022 Are There Any Smokers In Your House? No [id number] Information not available 12/18/2022 Do You Use Sunscreen Routinely? No [id number] Information not available 12/18/2022 Have You Recently Traveled Abroad? No [id number] Information not available 12/18/2022 Do You Have Any Dietary Restrictions? No [id number].[id number] Information not available 12/18/2022 Do You Or Have You Ever Used Any Other Forms Of Tobacco Or Nicotine? No MIGRATION.[id number] Information not available 12/18/2022 Sex: Unknown Functional Status Question Answer Note LastModified by Ligandal ion Details LastModified Time What is your exercise level? Occasional [id number] Information not available 12/18/2022 Mental Status None recorded. Family History Nothing Reported Notes:Mother 76 yea rs old Father 56 years old 1 Brothers 0 Living Mother Hx ASHD Father Hx ASHD Medical History Condition Response NERVE DISEASE N BLINDNESS N RHEUMATIC FEVER N KIDNEY STONES N BLADDER PROBLEMS N MRSA N OTHER # 1 N POLIO N LUNG DISEASE/DISORDER N HISTORY OF DRUG ABUSE N RADIATION / CHEMOTHERAPY N COPD N Other # 2 N BLOOD DISEASES N EAR OR HEARING PROBLEMS N MUMPS N SHINGLES N BOWEL PROBLEMS N DEPRESSION (INCLUDING POST ) Y STROKE/TIA N ULCERS N BENIGN PROSTATIC HYPERPLASIA N MEASLES N HYPOTENSION N MYOCARDIAL INFARCTION N OBESITY N GERD/NAUSEA N ANEURYSM N URINARY/BLADDER/KIDNEY PROBLEMS N CORONARY ARTERY DISEASE (CAD) Y ADDICTION CONCERNS N Impotence N ENDOMETRIOSIS N USE OF BLOOD THINNERS N SKIN PROBLEMS N GASTROINTESTINAL DISORDER N PERIPHERAL VASCULAR DISEASE N MUSCLE,JOINT OR BONE PROBLEMS N GASTROINTESTINAL BLEEDING N BLOOD CLOTS N ASTHMA N CATARACTS N ERECTILE DYSFUNCTION N VARICOSITIES N GI PROBLEMS N Low Testosterone N INFERTILITY N AIDS/HIV N CHEMOTHERAPY / RADIATION N LIVER DISEASE N MALE HYPOGONADISM N HYPERTENSION Y Deficiency N TOURETTE'S N ANXIETY DISORDER Y BLOOD TRANSFUSION N ANEMIA/BLOOD DISORDER N CHRONIC EAR INFECTIONS N BRONCHITIS N TUBERCULOSIS N GLAUCOMA N FOOT PROBLEM N DIVERTICULITIS N SLEEP APNEA N CHICKENPOX N INFECTIOUS DISEASE N PROSTATE N HEART ARRHYTHMIA N INSOMNIA N HIGH CHOLESTEROL / HYPERLIPIDEMIA Y EYE PROBLEMS N HYPERTHYROIDISM N EDEMA N CHRONIC PAIN SYNDROME N HYPOTHYROIDISM Y CONSTIPATION N CAROTID BLOCKAGE N BACK / NECK PROBLEMS N HAVE YOU BEEN HOSPITALIZED OR SEEN IN [facility] IN THE PAST YEAR ? N ATHEROSCLEROSIS N BREAST PROBLEMS N DIALYSIS N ECZEMA N OSTEOPOROSIS N ARTHRITIS N NO SIGNIFICANT PAST MEDICAL HISTORY N APPENDICITIS N DIABETES, TYPE N BAD TEETH N ENT N HEARTBURN / REFLUX N AUTISM SPECTRUM DISORDER (ASD) N HEPATITIS / LIVER DISEASE N GOUT N SLEEP DISORDER N ALZHEIMER'S DISEASE N Brain Problems N DEMENTIA N HERPES N SEIZURES/EPILEPSY N HEADACHES/MIGRAINES N VASCULAR DISEASE N PACEMAKER N Blood Disorder N DIZZINESS N HEART DISEASE/HEART PROBLEMS N KIDNEY DISEASE N MULTIPLE SCLEROSIS N CANCER: SPECIFY N CARDIAC ARRHYTHMIA N ATRIAL FIBRILLATION N Gall Stones N PULMONARY EMBOLISM N AUTOIMMUNE DISEASE N Gynecological History Statement/Question Response Date of Last Pap Date of Last Mammogram Most Recent Bone Density Obstetrics History GPAL:G 0 P 0 0 0 0 Immunizations Vaccine Type Date Status Note Provider Nam e and Address Organization Details Recorded Time SARS-COV-2 (COVID-19) vaccine, UNSPECIFIED 1 completed Not Available [facility] 08/12/2023 11:52:04 SARS-COV-2 (COVID-19) vaccine, UNSPECIFIED 1 completed Not Available [facility] 08/12/2023 11:52:04 Past Encounters Encounter ID Performer Location Encounter Start Date Encounter Closed Date Diagnosis/Indication Diagnosis SNOMED-CT Code Diagnosis ICD10 Code Diagnosis Note [id number] [facility] [address] [place] [address] 01/18/2021 00:00:00 01/18/2021 12:21:07 [id number] [facility] [address] [place] [address] 02/15/2021 00:00:00 02/15/2021 12:04:50 [id number] [facility] [place] [address] [place] [address] y , [place] [address] 03/02/2021 00:00:00 03/02/2021 15:20:43 [id number] [facility] [place] [address] [place] [address] y , [place] [address] 07/06/2021 00:00:00 07/06/2021 12:34:55 [id number] [facility] [place] [address] [place] [address] y , [place] [address] 11/09/2021 00:00:00 11/09/2021 11:40:23 [id number] [facility] [place] [address] [place] [address] y , [place] [address] 03/08/2022 00:00:00 03/08/2022 11:50:05 [id number] [facility] [place] [address] [place] [address] y , [place] [address] 07/16/2022 00:00:00 07/16/2022 11:44:46 [id number] Archie Monge MD [facility] [place] [address] [place] [address] y , [place] [address] 01/14/2023 11:19:52 01/14/2023 12:00:51 Coronary arteriosclerosis 73658590 I25.10 Essential hypertension 14299426 I10 Hypothyroidism 73605511 E03.9 Pure hypercholesterolemia 089281227 E78.00 Depressive disorder 3548 9007 F32.A Vitamin D deficiency 347 47304 E55.9 [id number] Archie Monge MD [facility] [place] [address] [place] [address] y , [place] [address] 07/15/2023 11:25:36 07/15/2023 12:02:44 Coronary arteriosclerosis 61702167 I25.10 Essential hypertension 86038962 I10 Hypothyroidism 53781316 E03.9 Impaired f asting glycemia 690731522 R73.01 Obese class I 1703836403 51285 E66.9 Hyperlipidemia 09339956 E78.5 [id number] Archie Monge MD [facility] [address] [facility] y , [place] [address] 12/12/2023 11:18:58 12/12/2023 12:33:16 Coronary arteriosclerosis 32845173 I25.10 Essential hypertension 61169892 I10 Hypothyroidism 72151605 E03.9 Hyperlipidemia 66058694 E78.5 Chronic ki dney disease stage 3 817976514 N18.30 [id number] Archie Monge MD [facility] Internal [facility] [place] [address] [facility] [place] [address] 06/10/2024 11:47:49 06/10/2024 12:22:10 Chronic kidney disease stage 3 259915802 N18.30 Coronary arteriosclerosis 45340016 I25.10 Essential hypertension 79692208 I10 Hypothyroidism 58863092 E03.9 Pure hypercholesterolemia 143310599 E78.00 [id number] Archie Monge MD [facility] [address] [facility] [address] [facility] [place] [address] 12/09/2024 14:23:47 12/09/2024 14:59:51 Coronary arteriosclerosis 77961524 I25.10 Essential hypertension 51060089 I10 Gastroesop hageal reflux disease 915101350 K21.00 Pure hypercholesterolemia 439187705 E78.00 Obese class I 4663639383 86930 E66.9 Hypothyroidism 34561658 E03.9 Health Concerns Section Related Observation LastModified by Organization Detai ls LastModified Time None Recorded Concern Status LastModified by Organization Details LastModified Time None Recorded Advance Directives Directive N: Payers Encounter Date Sequence Insurance Name Policy Number Policy Lozada Covered Member ID Lozada Member ID Guarantor Name 01/14/2023 1 [place] Ewelina Rolle Taurus [id number] 5 Ewelina Rolle Taurus 01/14/2023 2 [id number] Ewelina Rolle Taurus [id number] Ewelina Rolle Taurus 07/15/2023 1 [place] Ewelina Rolle Taurus [id number] 5 Ewelina Rolle Taurus 07/15/2023 2 [id number] Ewelina Rolle Taurus [id number] Ewelina Rolle Taurus 12/12/2023 1 [place] Ewelina Rolle Taurus [id number] 5 Ewelina Rolle Taursu 12/12/2023 2 [id number] Ewelina Rolle Taurus [id number] 49 Ewelina Rolle Taurus 06/10/2024 1 [place] Ewelina Rolle Taurus [id number] 5 Ewelina Rolle Taurus 06/10/2024 2 [id number] Ewelina Rolle Taurus [id number] Ewelina Rolle Taurus 12/09/2024 1 [place] Ewelina Rolle Taurus [id number] 5 Ewelina Rolle Taurus 12/09/2024 2 [id number] Ewelina Rolle Taurus [id number] Ewelina Rolle Taurus Notes Date Note Type Note Provider Name and Address Organization Details Recorded Time 3 text/html Patient Name: Ewelina Bazanate Of Service: Friday ( 01.14.2023 ): 1955 Age: 67 Vital Signs:Blood Pressure: Sitting Rt. Arm 120/78Pulse: Sitting 93 /min and RegularRespirations: 12Height 64 in or 1.6 mWeight 199 lb or 90.3 kgBMI 34.2Temperature: 97 F or 36.1 CPulse Oximetry: 97 % at rest on no oxygen Chief Complaint: Addressed in HPI Problems or conditions discussed in the HPI were the only ones reviewed during the encounter.Only social and family history addressed in the HPI were reviewed during this encounter. Attendant(s): None Constitutional and Systemic Symptoms: none Medication Reconciliation: from medication list. History of Present Illness #1. Coronary Artery Disease: There has been no change in frequency - duration - intensity in frequency, duration or intensity of chest pain. Other Complaints: none The frequency of anginal attacks is none at all. Additional Symptoms: none Therapy reviewed regarding cardiovascular management includes Aspirin, Lipitor, Lisinopril and Trilipix #2. Essential Hypertension: Stage: Stage I Interval Neurological Complaints no headaches, dizziness, weakness, visual changes, ataxia, aphasia and apraxia. No shortness of breath, orthopnea or cardiovascular symptoms. No other symptoms related to end organ damage. Pressure has been under excellent control. Currently normal. No other end organ symptoms or findings. Therapy reviewed regarding management of hypertension and includes salt restriction and Lisinopril. #3. Type II Hypercholesterolaemia: Currently taking medication and tolerating well. No interval complaints of any muscle pain or arthralgia. No significant liver changes with medications. Last lipid panel: fair control. Therapy reviewed regarding treatment of cholesterol management and include diet and Lipitor. #4. Hx of hypothyroidism currently stable. Heat intolerance: no Fatigue: no Weight gain: no Difficulty concentrating: no Muscle Symptoms: none Skin Texture: normal Skin Color: normal Currently taking synthroid. #5. Hx of depression currently stable. Pharmacological treatment : Aripiprazole, Effexor Xr and Lexapro . Suicidal thoughts or ideas: None Loss of appetite: No Sleep Disturbance: No Hallucinations: No Is currently seeing a psychiatrist. Discussed possibility of decreasing and weaning off medication. Feels that current regimen is working fine and wishes not to change the current treatment regimen. No contraindication to continue current therapy.Medication List Reviewed and Reconciled 01/14/2023Synthroid 0.05 MG (TABLET - ORAL) One DailyAspirin 325 MG One DailyLisinopril 20 MG TABLET Once Daily For HtnEffexor Xr 150 MG (CAPSULE, EXTENDED RELEASE - ORAL) One Daily For DepressionPepcid Ac DailyTrilipix 135 MG FENOFIBRIC ACID (CAPSULE, DELAYED RELEASE - ORAL) DailyAtivan 1 MG (TABLET - ORAL) 2 Tablets Tid- FreemanLipitor 40 MG (TABLET - ORAL) DailyTrazodone 100 MG (TABLET - ORAL) Two HsReclast 5 MG /100 ML (INJECTABLE - INTRAVENOUS) Once A YearLexapro 5 MG TABLET, FILM COATED Once DailyAripiprazole 5 MG TABLET Once Daily At BedtimeADRs List Reviewed 01/14/2023Zoloft DiarrheaVaccination and Okotvblonkuj8390-00 Covnm PfizerSurgical HistoryLeft TKAPreventative Testing Confirmed by Our Stvouhr6610/16/2022 MAMMOGRAM 309/ HAIC11/17/2019 UPPER WEZGVWITM41/04/2019 COLONOSCOPY (10 YEARS) ALBUMIN 4.3 G/DLSocial HistorySOCIAL HISTORY:Smoking Hx: 1.5 of cigarettes per day for 5 years. Drinking Hx: 1 Case beers per week, 5 Cups of tea per day, < 6 cans of soft drinks per day.Exercise: InfrequentlySexual Hx: Sexually ActiveOccupation: Office WorkerFamily HistoryFAMILY HISTORY:Mother 76 years oldFather 56 years old1 Brothers 1 LivingMother Hx: ASHDFather Hx: KARL Monge MD [address] [place] [address], [phone], [facility] [employer] 01/14/2023 11:52:44 3 text/html Patient Name: Ewelina Rolle LogsdonDate Of Service: Friday ( 07.15.2023 ): 1955 Age: 67 There has been approximately a 2 lb weight gain since 01/14/2023. This represents approximately a 1.0% change in weight. Weight change attributable to lifestyle changes. Vital Signs:Blood Pressure: Sitting Rt. Arm 132/80Pulse: Sitting 95 /min and RegularRespiratory Rate: 12Height 64 in or 1.6 mWeight 201 lb or 91.2 kgBMI 34.5Temperature: 97 F or 36.1 CPulse Oximetry: 98 % at rest on no oxygen Chief Complaint: Addressed in HPI Problems or conditions discussed in the HPI were the only ones reviewed during the encounter.Only social and family history addressed in the HPI were reviewed during this encounter. Attendant(s): NoneConstitutional and Systemic Symptoms:none Medication Reconciliation: from medication list. History of Present Illness #1. Coronary Artery Disease: There has been no change in frequency - duration - intensity in frequency, duration or intensity of chest pain. Other Complaints: none The frequency of anginal attacks is none at all. Additional Symptoms: none Therapy reviewed regarding cardiovascular management includes Aspirin, Lipitor, Lisinopril and Trilipix #2. Essential Hypertension: Stage: Stage I Interval Neurological Complaints no headaches, dizziness, weakness, visual changes, ataxia, aphasia and apraxia. No shortness of breath, orthopnea or cardiovascular symptoms. No other symptoms related to end organ damage. Pressure has been under fair control. Currently normal. No other end organ symptoms or findings. Therapy reviewed regarding management of hypertension and includes salt restriction and Lisinopril. #3. Hx of hypothyroidism currently stable. Heat intolerance: no Fatigue: no Weight gain: no Difficulty concentrating: no Muscle Symptoms: none Skin Texture: normal Skin Color: normal Currently taking synthroid. #4. Glucose Intolerance: Hx of glucose intolerance controlled with diet. No interval complaints of any polyuria, polyphagia or polydipsia. No nocturia. There has been no weight loss or other constitutional symptoms. Medications reviewed regarding diabetic management and include diet only. Last [facility]: controlled #5. Hx of obesity. Currently Class 1 Obesity BMI 30-34.99. Has tried numerous dietary support and supplements with no benefit. Instructed on the health consequences of the obese status particularly cancer - diabetes and heart disease. Discussed new modalities of weight loss including GLP-1 medications that are used to treat diabetes. Potential candidate for bariatric surgery: No. Wishes to be evaluated by Dietary: No and was offered to be evaluated and instructed by inventory coordinator on weight loss diet.Medication List Reviewed and Reconciled 07/15/2023Synthroid 0.05 MG (TABLET - ORAL) One DailyAspirin 325 MG One DailyLisinopril 20 MG TABLET Once Daily For HtnEffexor Xr 150 MG (CAPSULE, EXTENDED RELEASE - ORAL) One Daily For DepressionPepcid Ac DailyTrilipix 135 MG FENOFIBRIC ACID (CAPSULE, DELAYED RELEASE - ORAL) DailyAtivan 2 MG TABLET One Three Times A Day FreemanLipitor 40 MG (TABLET - ORAL) DailyTrazodone 100 MG (TABLET - ORAL) Two HsReclast 5 MG /100 ML (INJECTABLE - INTRAVENOUS) Once A YearLexapro 5 MG TABLET, FILM COATED Once DailyAripiprazole 5 MG TABLET Once Daily At BedtimeADRs List Reviewed 07/15/2023Zoloft DiarrheaVaccination and Oufphaordjgb2301-41 Covid PfizerSurgical HistoryBilateral Cataracts, Left TKAPreventative Testing Confirmed by Our Advxfqu6904/18/2023 LETTER TNIAQFBUZLKUG48/28/2022 MAMMOGRAM / HAIC11/17/2019 UPPER IHOUVYINK97/04/2019 COLONOSCOPY (10 YEARS) ALBUMIN 4.3 G/DLSocial HistorySOCIAL HISTORY:Smoking Hx: 1.5 of cigarettes per day for 5 years. Drinking Hx: 1 Case beers per week, 5 Cups of tea per day, < 6 cans of soft drinks per day.Exercise: InfrequentlySexual Hx: Sexually ActiveOccupation: Office WorkerFamily HistoryFAMILY HISTORY:Mother 76 years oldFather 56 years old1 Brothers 0 LivingMother Hx: ASHDFather Hx: KARL Monge MD [address] [facility] [facility] [address], [place], [address], [facility] [employer] 07/15/2023 11:59:38 4 text/html Patient Name: Ewelina Rolle LogsdonDate Of Service: Friday ( 12.12.2023 ): 1955 Age: 68 There has been approximately a 1 lb weight gain since 07/15/2023. This represents approximately a .5% change in weight. Weight change attributable to lifestyle changes. Vital Signs:Blood Pressure: Sitting Rt. Arm 130/82Pulse: Sitting 73 /min and RegularRespiratory Rate: 12Height 64 in or 1.6 mWeight 202 lb or 91.6 kgBMI 34.7Temperature: 97.9 F or 36.6 CPulse Oximetry: 96 % at rest on no oxygen Chief Complaint: Addressed in HPI Problems or conditions discussed in the HPI were the only ones reviewed during the encounter.Only social and family history addressed in the HPI were reviewed during this encounter. Attendant(s): NoneConstitutional and Systemic Symptoms:none Medication Reconciliation: from medication list. History of Present Illness #1. Coronary Artery Disease: There has been no change in frequency - duration - intensity in frequency, duration or intensity of chest pain. Other Complaints: none The frequency of anginal attacks is none at all. Additional Symptoms: none Therapy reviewed regarding cardiovascular management includes medication #2. Essential Hypertension: Stage: Stage I Interval Neurological Complaints no headaches, dizziness, weakness, visual changes, ataxia, aphasia and apraxia. No shortness of breath, orthopnea or cardiovascular symptoms. No other symptoms related to end organ damage. Pressure has been under excellent control. Currently normal. No other end organ symptoms or findings. Therapy reviewed regarding management of hypertension and includes salt restriction and Lisinopril. #3. Type II Hypercholesterolaemia: Currently taking medication and tolerating well. No interval complaints of any muscle pain or arthralgia. No significant liver changes with medications. Last lipid panel: fair control. Therapy reviewed regarding treatment of cholesterol management and include Lipitor and Trilipix. #4. Hx of hypothyroidism currently stable. Heat intolerance: no Fatigue: no Weight gain: no Difficulty concentrating: no Muscle Symptoms: none Skin Texture: normal Skin Color: normal Currently taking synthroid. #5. History of chronic renal failure currently doing well. Currently is not followed by a block mason. Stage: CKD-3a. Albumin Stage: A1. There has been no change in urine output or color. No fever or chills. Active Medication ListSynthroid 0.05 MG (TABLET - ORAL) One DailyAspirin 325 MG One DailyLisinopril 20 MG TABLET Once Daily For HtnEffexor Xr 150 MG (CAPSULE, EXTENDED RELEASE - ORAL) One Daily For DepressionPepcid Ac DailyTrilipix 135 MG FENOFIBRIC ACID (CAPSULE, DELAYED RELEASE - ORAL) DailyAtivan 2 MG TABLET One Three Times A Day FreemanLipitor 40 MG (TABLET - ORAL) DailyTrazodone 100 MG (TABLET - ORAL) Two HsReclast 5 MG /100 ML (INJECTABLE - INTRAVENOUS) Once A YearLexapro 5 MG TABLET, FILM COATED Once DailyAripiprazole 5 MG TABLET Once Daily At Bedtime Adverse Drug Reactions ReviewedZoloft Diarrhea Vaccination and Hgsedatwgnen5934-55 [facility] Kguimsh6481-79 Bilateral Paacznofr8290-06 Left TKA Preventative Testing Confirmed by Our Jrlugys1009/30/2023 DEXA SCAN (NORMAL HIP - AP OSTEOPENIA)04/18/2023 WTPDIAWCDRKIQ28/28/2022 MAMMOGRAM / HAI11/17/2019 UPPER ZWVDVNCGK47/04/2019 COLONOSCOPY (10 YEARS) ALBUMIN 4.3 G/DL N Social HistorySOCIAL HISTORY:Smoking Hx: 1.5 of cigarettes per day for 5 years. Drinking Hx: 1 Case beers per week, 5 Cups of tea per day, < 6 cans of soft drinks per day.Exercise: InfrequentlySexual Hx: Sexually ActiveOccupation: Office WorkerFamily HistoryFAMILY HISTORY:Mother 76 years oldFather 56 years old1 Brothers 0 LivingMother Hx: ASHDFather Hx: KARL Monge MD [address] [facility], [facility] [address], [place], [address], [facility] [employer] [facility] 12/12/2023 12:31:07 4 text/html Patient Name: Ewelina Rolle LogsdonDate Of Service: May ( 06.10.2024 ): 1955 Age: 68 There has been approximately a 6 lb weight loss since 12/12/2023. This represents approximately a 3.0% change in weight. Weight change attributable to lifestyle changes. Vital Signs:Blood Pressure: Sitting Rt. Arm 126/82Pulse: Sitting 93 /min and RegularRespiratory Rate: 14Height 64 in or 1.6 mWeight 196 lb or 88.9 kgBMI 33.6Temperature: 97.2 F or 36.2 CPulse Oximetry: 95 % at rest on no oxygen Chief Complaint: Addressed in HPI Problems or conditions discussed in the HPI were the only ones reviewed during the encounter.Only social and family history addressed in the HPI were reviewed during this encounter. Attendant(s): NoneConstitutional and Systemic Symptoms:none Medication Reconciliation: from medication list. History of Present Illness #1. Coronary Artery Disease: There has been no change in frequency - duration - intensity in frequency, duration or intensity of chest pain. Other Complaints: none The frequency of anginal attacks is none at all. Additional Symptoms: none, syncope, pre-syncope, vertigo, ataxia and palpitations Therapy reviewed regarding cardiovascular management includes Aspirin, Lipitor, Lisinopril and Trilipix #2. Essential Hypertension: Stage: Stage I Interval Neurological Complaints no headaches, dizziness, weakness, visual changes, ataxia, aphasia and apraxia. No shortness of breath, orthopnea or cardiovascular symptoms. No other symptoms related to end organ damage. Pressure has been under excellent control. Currently normal. No other end organ symptoms or findings. Therapy reviewed regarding management of hypertension and includes salt restriction and Lisinopril. #3. Type II Hypercholesterolaemia: Currently taking medication and tolerating well. No interval complaints of any muscle pain or arthralgia. No significant liver changes with medications. Last lipid panel: fair control. Therapy reviewed regarding treatment of cholesterol management and include diet and Lipitor and Trilipix. #4. Hx of hypothyroidism currently stable. Heat intolerance: no Fatigue: no Weight gain: no Difficulty concentrating: no Muscle Symptoms: none Skin Texture: normal Skin Color: normal Currently taking synthroid. #5. History of chronic renal failure currently doing well. Currently is followed by a block mason. Stage: CKD-3b. Albumin Stage: A1. There has been no change in urine output or color. No fever or chills. #6. Hx of obesity. Currently Class 1 Obesity BMI 30-34.99. Has tried numerous dietary support and supplements with no benefit. Instructed on the health consequences of the obese status particularly cancer - diabetes and heart disease. Discussed other modalities of weight loss no. Potential candidate for bariatric surgery: No. Wishes to be evaluated by Dietary: No and was offered to be evaluated and instructed by inventory coordinator on weight loss diet. Active Medication ListSynthroid 0.05 MG (TABLET - ORAL) One DailyAspirin 325 MG One DailyLisinopril 20 MG TABLET Once Daily For HtnEffexor Xr 150 MG (CAPSULE, EXTENDED RELEASE - ORAL) One Daily For DepressionPepcid Ac DailyTrilipix 135 MG FENOFIBRIC ACID (CAPSULE, DELAYED RELEASE - ORAL) DailyAtivan 2 MG TABLET One Three Times A Day Dr BurksLipitor 40 MG (TABLET - ORAL) DailyTrazodone 100 MG (TABLET - ORAL) Two HsReclast 5 MG /100 ML (INJECTABLE - INTRAVENOUS) Once A YearLexapro 5 MG TABLET, FILM COATED Once DailyAripiprazole 5 MG TABLET Once Daily At Bedtime Adverse Drug Reactions ReviewedZoloft Diarrhea Vaccination and Waeslfkxazij4436-86 [facility] Pydgrtd5358-49 Bilateral Azfzytvwv9702-90 Left TKA Preventative Testing( ) 09/30/2023 DEXA Scan (Normal Hip - AP Osteopenia)( ) 04/18/2023 Ophthalmology( ) 10/16/2022 Mammogram 10/16/2024( ) 07/16/2022 [facility]( ) 11/17/2019 Upper Endoscopy( ) 07/23/2019 Colonoscopy (10 Years) 07/23/2029( ) 04/15/2019 Albumin 4.3 G/DL N Social HistorySOCIAL HISTORY:Smoking Hx: 1.5 of cigarettes per day for 5 years. Drinking Hx: 1 Case beers per week, 5 Cups of tea per day, < 6 cans of soft drinks per day.Exercise: InfrequentlySexual Hx: Sexually ActiveOccupation: Office WorkerFamily HistoryFAMILY HISTORY:Mother 76 years oldFather 56 years old1 Brothers 0 LivingMother Hx: ASHDFather Hx: KARL Monge MD [address] [facility], [facility] [address], [place], [address], [facility] [employer] 06/10/2024 12:17:05 5 text/html Patient Name: Ewelina oRlle LogsdonDate Of Service: November ( 12.09.2024 ): 1955 Age: 69 There has been approximately a 3 lb weight loss since 06/10/2024. This represents approximately a 1.5% change in weight. Weight change attributable to lifestyle changes. Vital Signs:Blood Pressure: Sitting Rt. Arm 122/70Pulse: Sitting 102 /min and RegularRespiratory Rate: 16Height 64 in or 1.6 mWeight 193 lb or 87.5 kgBMI 33.1Temperature: 97 F or 36.1 CPulse Oximetry: 97 % at rest on no oxygen Chief Complaint: Addressed in HPI Problems or conditions discussed in the HPI were the only ones reviewed during the encounter.Only social and family history addressed in the HPI were reviewed during this encounter. Attendant(s): NoneConstitutional and Systemic Symptoms:none Medication Reconciliation: from medication list. History of Present Illness #1. Surgical Clearance: The [facility] for preoperative clearance for surgery as requested by Dr. Patino. Is scheduled to have Rt. TKA at [facility] several weeks. The surgery is intermediate risk. The patient has history of CAD, HTN and medium risk for surgery. #2. Coronary Artery Disease: There has been no change in frequency - duration - intensity in frequency, duration or intensity of chest pain. Other Complaints: none The frequency of anginal attacks is none at all. Additional Symptoms: none Therapy reviewed regarding cardiovascular management includes Aspirin, Jardiance, Lipitor, Lisinopril and Trilipix #3. Essential Hypertension: Stage: Stage I Interval Neurological Complaints no headaches, dizziness, weakness, visual changes and ataxia. No shortness of breath, orthopnea or cardiovascular symptoms. No other symptoms related to end organ damage. Pressure has been under excellent control. Currently normal. No other end organ symptoms or findings. Therapy reviewed regarding management of hypertension and includes salt restriction and Lisinopril. #4. Type II Hypercholesterolaemia: Currently taking medication and tolerating well. No interval complaints of any muscle pain or arthralgia. No significant liver changes with medications. Last lipid panel: fair control. Therapy reviewed regarding treatment of cholesterol management and include diet and Lipitor and Trilipix. #5. Hx of esophageal reflux currently stable. Hx of Complications: none The severity, duration and intensity of symptoms have improved. Frequency: most meals Treatment consists medications taken on intermittent basis. Current therapy includes Pepcid Ac. There has been no nausea, eructation, vomiting, hematemesis, dysphagia, velopharyngeal insufficiency and odynophagia. No change in he frequency or intensity of symptoms. Has had no melena. Has had no . Discussed use of H2 antagonists NA.#6. Hypothyroidism clinically stable currently taking Synthroid and tolerating well. No signs or symptoms of any overactive or underactive thyroid #7. Hx of obesity. Currently Class 1 Obesity BMI 30-34.99. Has tried numerous dietary support and supplements with no benefit. Instructed on the health consequences of the obese status particularly cancer - diabetes and heart disease. Discussed other modalities of weight loss no . Potential candidate for bariatric surgery: No. Wishes to be evaluated by Dietary: No and was offered to be evaluated and instructed by inventory coordinator on weight loss diet. Active Medication ListSynthroid 0.05 MG (TABLET - ORAL) One DailyAspirin 325 MG One DailyLisinopril 20 MG TABLET Once Daily For HtnEffexor Xr 150 MG (CAPSULE, EXTENDED RELEASE - ORAL) One Daily For DepressionPepcid Ac DailyTrilipix 135 MG FENOFIBRIC ACID (CAPSULE, DELAYED RELEASE - ORAL) DailyAtivan 2 MG TABLET One Three Times A Day FreemanLipitor 40 MG (TABLET - ORAL) DailyTrazodone 100 MG (TABLET - ORAL) Two HsReclast 5 MG /100 ML (INJECTABLE - INTRAVENOUS) Once A YearLexapro 20 MG TABLET, FILM COATED Once DailyAripiprazole 5 MG TABLET Once Daily At BedtimeJardiance 10 MG TABLET, FILM COATED One Daily Adverse Drug Reactions ReviewedZoloft Diarrhea Vaccination and Immunization(X) 2020- COVSearchMan SEO Surgical [id number] Bilateral [id number] Left TKA Preventative Testing( ) 09/30/2023 DEXA Scan (Normal Hip - AP Osteopenia)( ) 04/18/2023 Ophthalmology(X) 10/16/2022 Mammogram 10/16/2024( ) 07/16/2022 [facility]( ) 11/17/2019 Upper Endoscopy( ) 07/23/2019 Colonoscopy (10 Years) 07/23/2029( ) 04/15/2019 Albumin 4.3 G/DL N Social HistorySOCIAL HISTORY:Smoking Hx: 1.5 of cigarettes per day for 5 years. Drinking Hx: 1 Case beers per week, 5 Cups of tea per day, < 6 cans of soft drinks per day.Exercise: InfrequentlySexual Hx: Sexually ActiveOccupation: Office WorkerFamily HistoryFAMILY HISTORY:Mother 76 years oldFather 56 years old1 Brothers 0 LivingMother Hx: ASHDFather Hx: KARL Monge MD [address], [address], [facility] [employer] 12/09/2024 14:49:36 OBGyn Episode No OBEpisode recorded.
[2024-12-13 12:30] LABS: Albumin Level 4.5 g/dL (3.5-5.1); Estimated Glomerular Filt Rate 48
[2024-12-13 12:39] LABS: Hematocrit 42.3 % (37.0-47.0); Hemoglobin 13.9 g/dL (12.0-15.0)
== END 2024-12-13 10:34 | disposition home or self-care (01) ==
PROVIDERS: PCP Internal Medicine; Visit Provider Orthopaedic Surgery
DX: E78.00 Pure hypercholesterolemia, unspecified (principal); M17.11 Unilateral primary osteoarthritis, right knee; N18.9 Chronic kidney disease, unspecified; Z01.818 Encounter for other preprocedural examination; M25.461 Effusion, right knee; M71.21 Synovial cyst of popliteal space [Baker], right knee
CPT/HCPCS: 36415; 73700; 82040; 82565; 85014; 85018

== ENCOUNTER 2024-12-22 10:21 | Outpatient (CLI) | payer MEDICARE, SELFPAY ==
--- NOTE | ~2024-12-22 | MM_ITS ---
EXAMINATION: MM screening [facility] BI w kota HISTORY: Screening mammogram TECHNIQUE: Craniocaudal and mediolateral oblique 3-D tomosynthesis images were obtained and synthetic 2-D images were generated. CAD analysis was submitted and interpreted. COMPARISON: 10/21/2023, 10/16/2022, 07/12/2021 BREAST PARENCHYMAL COMPOSITION:Not Dense. There are scattered areas of fibroglandular density. FINDINGS: No suspicious mass, calcification, or architectural distortion are identified in either jony ast to suggest malignancy. There has been no suspicious interval change. IMPRESSION: No mammographic evidence of malignancy. Recommend routine screening mammography in one year. BI-RADS Category 1: Negative Reviewed, dictated and finalized at location . PPER LATEX
== END 2024-12-22 10:22 | disposition home or self-care (01) ==
LOC: MICIMG 10:21
PROVIDERS: PCP Internal Medicine; Visit Provider Obstetrics & Gynecology Gynecology
DX: Z12.31 Encounter for screening mammogram for malignant neoplasm of breast (principal)
CPT/HCPCS: 77063; 77067

== ENCOUNTER 2025-02-11 09:42 | Outpatient (CLI) | payer MEDICARE, SELFPAY ==
--- OUTSIDE RECORDS SUMMARY | 2025-02-11 09:54 | XMS_ITS | Clinical Summary ---
Author Organization [facility] Facility Address [address] [place] [address], [place] [address] Care Team Providers Care Physical Instructor Name Role Phone Unavailable Primary Care Provider Unavailabl e Allergies No known active allergies Medications ARIPiprazole (ABILIFY) 5 MG tablet Take 5 mg by mouth 1 (one) time each day 1 Active aspirin 325 MG EC tablet Take 1 tablet by mouth 1 (one) time each day Active atorvastatin (LIPITOR) 40 MG tablet Take 40 mg by mouth 1 (one) time each day 1 Active LORazepam (ATIVAN) 1 MG tablet Take 2 tablets by mouth 3 (three) times a day 3 Active traZODone (DESYREL) 100 MG tablet Take 200 mg by mouth every night 1 Active venlafaxine XR (EFFEXOR-XR) 150 MG 24 hr capsule Take 150 mg by mouth 1 (one) time each day 1 Active Choline Fenofibrate (Fenofibric Acid) 135 MG [...] TAKE 1 TABLET DAILY 90 tablet 3 4 Active Empagliflozin (Jardiance) 10 MG tablet Take 10 mg by mouth every morning 90 tablet 3 5 Active levothyroxine (SYNTHROID, LEVOTHROID) 50 MCG tablet Take 1 tablet (50 mcg total) by mouth 1 (one) time each day 90 tablet 1 5 Active traMADol (ULTRAM) 50 MG tablet Take 1 tablet (50 mg total) by mouth every 8 (eight) hours if needed for moderate pain 60 tablet 2 5 Active Active Problems Problem Noted Date Diagnosed Date Prediabetes 12/14/2024 Osteoarthritis 08/17/2024 Gastroesophageal reflux disease 11/12/2022 Chronic fatigue syndrome 07/19/2021 Stage 3a chronic kidney disease 07/19/2021 Coronary arteriosclerosis 07/19/2021 Dysphagia 07/19/2021 Dysthymia 07/19/2021 Essential hypertension 07/19/2021 Noninfectious gastroenteritis 07/19/2021 Mixed hyperlipidemia 07/19/2021 Vitamin D deficiency 07/19/2021 Obesity 02/01/2008 Encounters Date Type Department Care Team Description 12/14/2024 11:00 AM OUTDOOR ADVERTISING LEASING AGENT Office Visit [facility], [facility] [address] [phone] Wenceslao Solo MD Stage 3a chronic kidney disease (HCC) (Primary Dx); Essential hypertension; Prediabetes; Coronary arteriosclerosis, not otherwise specified; Mixed hyperlipidemia; Vitamin D deficiency, not otherwise specified; Primary generalized osteoarthritis; Dysthymia 12/14/[address] [facility], [facility] [address] [facility] [address] [place] [phone] [facility] 12/14/2024 Refill [facility], [facility] [address] [phone] [facility], [facility] 12/07/2024 Orders Only [facility], [address] [address] Wencselao Solo MD 12/01/2024 Refill [facility], [facility] [address] [facility] [address] [place] [address] Wenceslao Solo MD 11/15/2024 Documentation Only [facility], [address] [phone] Wenceslao Solo MD from Last 3 Months [...] Sign Reading Time Taken Comments Blood Pressure 120/80 12/14/2024 10:54 AM OUTDOOR ADVERTISING LEASING AGENT Pulse 68 12/14/2024 10:54 AM OUTDOOR ADVERTISING LEASING AGENT Temperature 36.1 C (97 F) 12/14/2024 10:54 AM OUTDOOR ADVERTISING LEASING AGENT Respiratory Rate 18 12/14/2024 10:54 AM OUTDOOR ADVERTISING LEASING AGENT Oxygen Saturation 97% 12/14/2024 10:54 AM OUTDOOR ADVERTISING LEASING AGENT Inhaled Oxygen Concentration - - Weight 91 kg (200 lb 11.2 oz) 12/14/2024 10:54 A M OUTDOOR ADVERTISING LEASING AGENT Height 160 cm (5' 3 ) 05/18/2024 10:27 AM CDT Body Mass Index 35.55 05/18/2024 10:27 AM CDT Plan of Treatment Upcoming Encounters Date Type Department Care Team (Late st Contact Info) Description 03/29/2025 10:30 AM CDT Office Visit [facility], [facility] [address] [facility] [address] [place] [phone] Wenceslao Solo MD [address] [place] [phone] Health Maintenance Due Date Last Done Comments Breast Cancer Screening 1955 Pneumococcal Vaccine: 50+ Ye ars (1 of 2 - PCV) 1976 Colorectal Cancer Screening: Annual FOBT 2006 Colorectal Cancer Screening: Colonoscopy 2006 Colorectal Cancer Screening: Sigmoidoscopy 2006 Influenza Vaccine (Season Ended) 2025 Hepatitis B Vaccine Aged Out No longe r eligible based on patient's age to complete this topic Procedures Procedure Name Priority Date/Time Associated Diagnosis Comments NOTE Routine 12/07/2024 9:18 AM OUTDOOR ADVERTISING LEASING AGENT URINALYSIS RFX MICROSCOPIC Routine 12/07/2024 9:18 AM OUTDOOR ADVERTISING LEASING AGENT HEMOGLOBIN A1C Routine 12/07/2024 9:18 AM OUTDOOR ADVERTISING LEASING AGENT PROTEIN / CREATININE RATIO, URINE Routine 12/07/2024 9:18 AM OUTDOOR ADVERTISING LEASING AGENT VITAMIN D 25 HYDROXY Routine 12/07/2024 9:18 AM OUTDOOR ADVERTISING LEASING AGENT PTH, INTACT Routine 12/07/2024 9:18 AM OUTDOOR ADVERTISING LEASING AGENT CBC AND DIFFERENTIAL Routine 12/07/2024 9:18 AM OUTDOOR ADVERTISING LEASING AGENT COMPREHENSIVE METABOLIC PANEL Routine 12/07/2024 9:18 AM OUTDOOR ADVERTISING LEASING AGENT PHOSPHATE ( PHOSPHORUS) Routine 12/07/2024 9:18 AM OUTDOOR ADVERTISING LEASING AGENT LIPID PANEL Routine 12/07/2024 9:18 AM OUTDOOR ADVERTISING LEASING AGENT from Last 3 Months Results * NOTE (12/07/2024 9:18 AM OUTDOOR ADVERTISING LEASING AGENT) Note: See order comments Comment: This urine was analyzed for the presence of WBC, RBC, bacteria, casts, and other formed elements. Only those elements seen were reported. 12/07/2024 9:18 AM OUTDOOR ADVERTISING LEASING AGENT 12/07/2024 9:24 AM OUTDOOR ADVERTISING LEASING AGENT Narrative Resulting Agency Comment Performing Organization Information: Site ID: Name: [facility] Address: [address] [place] [address] Director: Felipe Gao us Wenceslao Solo MD LAB [id number] NSOLICITED RESULTS Final Result [address] See order comments [place] [address] * Protein, Total, Random Urine w/Creatinine (Protein/Creat Ratio) (12/07/2024 9:18 AM OUTDOOR ADVERTISING LEASING AGENT) Creatinine, Ur 114 20 - 275 mg/dL See order comments Urine Protein/Creatin ine Ratio 88 24 - 184 mg/g creat See order comments Protein/Creatin ine Ratio, Urine 0.088 0.024 - 0.184 mg/mg creat See order comments Protein Urine Random 10 5 - 24 mg/dL See order comments 12/07/2024 9:18 AM OUTDOOR ADVERTISING LEASING AGENT 12/07/2024 9:24 AM OUTDOOR ADVERTISING LEASING AGENT Narrative Resulting Agency Comment Performing Organization Information: Site ID: Name: [facility] Address: [address] [place] [address] Director: Felipe Gao us Wenceslao Solo MD LAB URINE ORDERABLES Final R esult [address] See order comments [place] [address] * (ABNORMAL) Urinalysis Reflex Microscopic (12/07/2024 9:18 AM OUTDOOR ADVERTISING LEASING AGENT) Color, Urine YELLOW YELLOW See ord er comments Appearance Urine CLEAR CLEAR See order comments Specific [place], UA 1.022 1.001 - 1.035 See order [...] by t he ancillary. 12/07/2024 9:18 AM OUTDOOR ADVERTISING LEASING AGENT 12/07/2024 9:24 AM OUTDOOR ADVERTISING LEASING AGENT Narrative Resulting Agency Comment Performing Organization Information: Site ID: Name: [facility] Address: [facility] [place] [address] Director: Felipe Gao us Wenceslao Solo MD LAB URINE ORDERABLES Final R esult [facility] See order comments [place] [address] * Vitamin D 25 Hydroxy (12/07/2024 9:18 AM OUTDOOR ADVERTISING LEASING AGENT) Vitamin D, 25-OH, Total, IA 32 30 [...] D, (D2,D3), LC/MS/MS is recommended: order code 87755 (patients >2yrs). See Note 1 Note 1 For additional information, please refer to http://education.Lumafit/faq/FQI586 (This link is being provided for informational/ educational purposes only.) 12/07/2024 9:18 AM OUTDOOR ADVERTISING LEASING AGENT 12/07/2024 9:24 AM OUTDOOR ADVERTISING LEASING AGENT Narrative Resulting Agency Comment Performing Organization Information: Site ID: [id number] Name: [facility] Address: [address] [address] Director: Felipe Gao MD us Wenceslao Solo MD LAB BLOOD ORDERABLES Final R esult [facility] See order comments [place] [address] * (ABNORMAL) CBC and Differential (12/07/2024 9:18 AM OUTDOOR ADVERTISING LEASING AGENT) WBC 4.3 3.8 - 10.8 Thousand/ uL [...] cells/uL See order comments Comment:Result canceled by melissa salter. Metamyelocytes Absolute CANCELED 0 cells/uL See order [...] by t he ancillary. 12/07/2024 9:18 AM OUTDOOR ADVERTISING LEASING AGENT 12/07/2024 9:24 AM OUTDOOR ADVERTISING LEASING AGENT Narrative Resulting Agency Comment Performing Organization Information: Site ID: Name: [facility] Address: [address] [place] [address] Director: Felipe Gao us Wenceslao Solo MD LAB BLOOD ORDERABLES Final R esult [facility] See order comments [place] [address] * Phosphorus (12/07/2024 9:18 AM OUTDOOR ADVERTISING LEASING AGENT) Phosphorus 4.0 2.1 - 4.3 mg/dL See order comments 12/07/2024 9:18 AM OUTDOOR ADVERTISING LEASING AGENT 12/07/2024 9:24 AM OUTDOOR ADVERTISING LEASING AGENT Narrative Resulting Agency Comment Performing Organization Information: Site ID: Name: [facility] Address: [address] [place] [address] Director: Felipe Gao Wenceslao Solo MD LAB BLOOD ORDERABLES Final R esult Performing Organization Address City/[facility] Co de Phone Number [facility] See order comments [place] [address] * (ABNORMAL) PTH, Intact (12/07/2024 9:18 AM OUTDOOR ADVERTISING LEASING AGENT) Parathyroid Hormone, Intact 13(L) 16 - 77 pg/mL See order comments Comment: Interpretive Guide Intact PTH Calcium ------- Normal Parathyroid Normal Normal Hypoparathyroidism Low or Low Normal Low Hyperparathyroidism Primary Normal or High High Secondary High Normal or Low Tertiary High High Non-Parathyroid Hypercalcemia Low or Low Normal High 12/07/2024 9:18 AM OUTDOOR ADVERTISING LEASING AGENT 12/07/2024 9:24 AM OUTDOOR ADVERTISING LEASING AGENT Narrative Resulting Agency Comment Performing Organization Information: Site ID: [id number] Name: [facility] Address: [address] [address] Director: Felipe Gao MD us Wenceslao Solo MD LAB BLOOD ORDERABLES Final R esult Performing Organization Address City/[facility] Co de Phone Number [facility] See order comments [place] [address] * (ABNORMAL) Hemoglobin A1c (12/07/2024 9:18 AM OUTDOOR ADVERTISING LEASING AGENT) Hemoglobin A1C 6.1(H) <5.7 % of total [...] of diabetes for children. 12/07/2024 9:18 AM OUTDOOR ADVERTISING LEASING AGENT 12/07/2024 9:24 AM OUTDOOR ADVERTISING LEASING AGENT Narrative Resulting Agency Comment Performing Organization Information: Site ID: Name: [facility] Address: [address] [place] [address] Director: Felipe Gao us Wenceslao Solo MD LAB BLOOD ORDERABLES Final R esult [facility] See order comments [place] [address] * Lipid panel (12/07/2024 9:18 AM OUTDOOR ADVERTISING LEASING AGENT) Cholesterol 156 <200 mg/dL See ord er [...] factors. LDL-C is now calculated using the Patrcik-Asher calculation, which is a validated novel method providing better accuracy than the Friedewald equation in the estimation of LDL-C. Patrick SMITH et al. YARY. 2013;310(19): 3690-3515 (http://education.Blurr.Oculus360/faq/QWV065) Chol/HDL Ratio 2.3 <5.0 (calc) See order comments Non HDL Cholesterol 89 <130 mg/dL (calc) See order comments Comment: For patients with diabetes plus 1 major ASCVD risk factor, treating to a non-HDL-C goal of <100 mg/dL (LDL-C of <70 mg/dL) is considered a therapeutic option. 12/07/2024 9:18 AM OUTDOOR ADVERTISING LEASING AGENT 12/07/2024 9:24 AM OUTDOOR ADVERTISING LEASING AGENT Narrative Resulting Agency Comment Performing Organization Information: Site ID: [id number] Name: [facility] Address: [address] [place] [address] Director: Felipe Gao us Wenceslao Solo MD LAB BLOOD ORDERABLES Final R esult [facility] See order comments [place] [address] * (ABNORMAL) Comprehensive Metabolic Panel (12/07/2024 9:18 AM OUTDOOR ADVERTISING LEASING AGENT) Glucose 104(H) 65 - 99 mg/dL See [...] See orde r comments 12/07/2024 9:18 AM OUTDOOR ADVERTISING LEASING AGENT 12/07/2024 9:24 AM OUTDOOR ADVERTISING LEASING AGENT Narrative Resulting Agency Comment Performing Organization Information: Site ID: [place] Name: [facility] Address: [address] [address] Director: Felipe Gao us Wenceslao Solo MD LAB BLOOD ORDERABLES Final R esult [facility] See order comments [place] [address] from Last 3 Months Insurance Medicare [facility]
--- OUTSIDE RECORDS SUMMARY | 2025-02-11 09:54 | XMS_ITS | Encounter Summary ---
Author Organization [facility] [employer] [facility] Address [address] [facility] [place] [address] Phone Care Team Providers Care Financial Business Analyst Name Role Phone Unavailable Primary Care Provider Unavailabl e Reason for Visit * Reason Comments Med Refill Encounter Details Date Type Department Care Team (Late st Contact Info) Description 03/26/2023 [facility]ill [place] [facility] [address] [facility] [address] [place] [address] Wenceslao Solo MD [address] [facility] 1 [place] [address] Social History Tobacco Use Types [...] Department Care Team (Late Contact Info) Description 03/29/2025 10:30 AM CDT Office Visit [place] [facility] [address] [facility] [address] [place] [address] Wenceslao Solo MD [address] [facility] [place] [address] documented as of this encounter Visit Diagnoses Not on filedocumented in this encounter
--- OUTSIDE RECORDS SUMMARY | 2025-02-11 09:55 | XMS_ITS | Encounter Summary ---
Author Organization [facility] Address [address] [facility] [place] [address] Phone Care Team Providers Care Glass Melt Operator Name Role Phone Unavailable Primary Care Provider Unavailabl e Reason for Visit * Reason Onset Date Comments Med Refill 08/17/2024 Encounter Details Date Type Department Care Team (Late st Contact Info) Description 08/17/2024 Refill [place] [employer] [facility] [address] [facility] [address] [place] [address] Preeti Jensen CMA [address] [facility] 1 [place] [address] Social History Tobacco Use Types [...] Description 03/29/2025 10:30 AM CDT Office Visit [place] [employer] [facility] [address] [facility] [address] [place] [address] Wenceslao Solo MD [address] [facility] [place] [address] documented as of this encounter Visit Diagnoses Not on filedocumented in this encounter
--- OUTSIDE RECORDS SUMMARY | 2025-02-11 09:55 | XMS_ITS | Encounter Summary ---
Author Organization [facility] [email or web address] [facility] Address [address] [facility] [place] [address] Phone Care Team Providers Care Tower Switch Operator Name Role Phone Unavailable Primary Care Provider Unavailabl e Reason for Visit * Reason Comments Med Refill Encounter Details Date Type Department Care Team (Late st Contact Info) Description 06/06/2023 [facility] [address] [facility] [address] [place] [address] Wenceslao Solo MD [address] [facility] [address] [place] [address] Social History Tobacco Use Types [...] Description 03/29/2025 10:30 AM CDT Office Visit [facility] [address] [facility] [address] [address] [place] [address] Wenceslao Solo MD [address] [facility] [address] [place] [address] documented as of this encounter Visit Diagnoses Not on filedocumented in this encounter
--- OUTSIDE RECORDS SUMMARY | 2025-02-11 09:55 | XMS_ITS | CONTINUITY OF CARE DOCUMENT ---
Author Name marco a strickland Address Unknown Organization [facility] Address [address] [place] [address] Phone [phone] Care Team Providers Care Liquor Commissioner Name Role Phone Ethan VALLES, Gallo Unavailable BRIA VALLES, ARCHIE Unavailable [phone] ARCHIE FRASER MD Unavailable PROBLEMS Condition Status Date Provider Notes Blood glucose abnormal active Brad Starkey RN OBESITY active Gallo Long MD TOBACCO ABUSE active ? Gallo Long [...] < 55: active ? Gallo Long MD CHEST PAIN-07/28 NUC NEG 3/0 7 NUC NEG completed - Homero Key MD CAROTID-12/26 CAROTID UNCHANG E 08/24 CAROTID NEG completed - Homero Key MD HTN-07/28 ECHO EF 55 3/7 ECH O EF 60 completed - Homero Key MD CAD active Gallo Long MD ENCOUNTERS Date Type Provider Location Encounter Diag nosis - In-person encounter Office Visit Gallo Long MD [facility] - In-person encounter Office Visit Gallo Long MD [facility] - In-person encounter Office Visit Gallo Long MD [facility] - In-person encounter Office Visit Gallo Long MD [facility] - In-person encounter Office Visit Gallo Long MD [facility] - In-person encounter Office Visit Gallo Long MD [facility] - In-person encounter Office Visit Gallo Long MD [facility] - In-person encounter Office Visit Gallo Long MD [facility] - In-person encounter Office Visit Gallo Long MD [facility] - In-person encounter Office Visit Gallo Long MD [facility] CADOBESITYDIASTOLIC DYSFUNCTIONISCHEMIA;NEG NUC 2010CHEST PAIN - In-person encounter Office Visit Gallo Long MD [facility] - In-person encounter Office Visit Gallo Long MD [facility] - In-person encounter Office Visit Gallo Long MD [facility] Family History Coronary Heart Disease male < 55: - In-person encounter Office Visit Gallo Long MD [facility] - In-person encounter Office Visit Homero Key MD [facility] CADHTN-07/28 ECHO EF 55 3 ECHO EF 60OBESITYCAROTID-12/26 CAROTID UNCHANGE 08/24 CAROTID NEGCHEST PAIN-07/28 NUC NEG 12/24 NUC NEGAMI, SUBENDOCARDIAL;100% DX 03 ONLYFAMILY HISTORY OF HEART DISEASEDIASTOLIC DYSFUNCTIONCHEST PAINSNORING; - In-person encounter Office Visit Gallo Long MD [facility] - In-person encounter Office Visit Gallo Long MD [facility] - In-person encounter Office Visit Gallo Long MD [facility] - In-person encounter Office Visit Gallo Long MD [facility] - In-person encounter Office Visit Gallo Long MD [facility] TOBACCO ABUSEHyperlipidemia - In-person encounter Office Visit Gallo Long MD [facility] - In-person encounter Office Visit Gallo Long MD [facility] VITAL SIGNS Date Observation Value Provider Body Mass Index (Ratio) 32.78 kg/m2 Felice Long MD blood pressure, diastolic 79 mm[Hg] Reina Grace blood pressure, systolic 127 mm[Hg] [place] danellenithin Grace oxygen saturation, oximetry 96 % Stephanie Grace respiratory rate E&M 14 /min Stephanie Grace pulse rate 90 /min Stephanie Grace weight E&M 191 [lb_av] Stephanie Grace height E&M 64 [in_i] Stephanie Grace blood pressure, cuff size regular orvillesanket Grace Body Mass Index (Ratio) 34.33 kg/m2 Felice Long MD blood pressure, diastolic 78 mm[Hg] Carrie nkLogmiky blood pressure, systolic 118 mm[Hg] Jennifer kLogic blood pressure, cuff size regular Ja rret [...] [lb_av] Veronica Paz height E&M 64 [in_i] Veronica Paz Body Mass Index (Ratio) 35.87 kg/m2 Felice Long MD blood pressure, diastolic 80 mm[Hg] Carrie sonLogmiky blood pressure, systolic 126 mm[Hg] Jennifer Grahamogmiky blood pressure, diastolic 80 mm[Hg] Dominga Hart [...] Ginger Ceja blood pressure, cuff size regular Cy guru Ceja pulse rate 83 /min Luciana burgos [...] peterson Charles weight E&M 202 [lb_av] Cheri Chalres Body Mass Index (Ratio) 34.33 kg/m2 Anea rola [place] blood pressure, diastolic 85 mm[Hg] An eatris [place] blood pressure, systolic 127 mm[Hg] Ane atris [place] pulse rate 94 /min Aneatris Brown oxygen saturation, oximetry 98 % Aneatris [place] respiratory rate E&M 18 /min Aneatri s [place] weight E&M 200 [lb_av] Aneatris [place] Body Mass Index (Ratio) 33.81 kg/m2 Guillermo Brink blood pressure, diastolic 75 mm[Hg] An [...] ad Brink blood pressure, systolic 124 mm[Hg] Kanwal atris [place] pulse rate 95 /min Aneatris [place] oxygen saturation, oximetry 97 % Kanwalatris [place] respiratory rate E&M 18 /min Aneatri s [place] weight E&M 192 [lb_av] Kanwalatris [place] blood pressure, diastolic 89 mm[Hg] Uday Starkey [...] RN Body Mass Index (Ratio) 27.56 kg/m2 Cait jacinto Roly blood pressure, diastolic 74 mm[Hg] Kole [...] Annie O'Kasi oxygen saturation, oximetry 96 % Annei O'Kasi respiratory rate E&M 18 /min Annie O'Kasi weight E&M 177 [lb_av] Annie O'Kasi blood pressure, diastolic 80 mm[Hg] Rodriguez rsha O'Kasi blood pressure, systolic 116 mm[Hg] Erika sha O'Kasi pulse rate 95 /min Annie O'Kasi oxygen saturation, oximetry 99 % Annie O'Kasi respiratory rate E&M 16 /min Annie AdyTellyKasi weight E&M 183 [lb_av] Annie Garsia'Kasi blood pressure, diastolic 80 mm[Hg] Uday Starkey RN blood pressure, systolic 124 mm[Hg] Brad Mejiajuanito SEWELL pulse rate 105 /min Brad Starkey RN oxygen saturation, oximetry 98 % Brad Starkey RN respiratory rate E&M 16 /min Brad scales RN weight E&M 15 [lb_av] Brad Mejiajuanito SEWELL blood pressure, diastolic 73 mm[Hg] Uday Starkey [...] LinkLogic 20-275 Normal platelet count 233 10*3/mm3 [facility] hematocrit, blood 39.0 % [facility] international normalized ratio (INR) 1.0 [facility] creatinine, serum 1.20 mg/dL [facility] potassium, serum 3.3 mmol/L [facility] sodium, serum 138 mmol/L [facility] hemoglobin A1C, blood, as % of total [...] u[IU]/mL Susana Clements platelet count 237 10*3/mm3 [facility] hematocrit, blood 36.5 % [facility] lipoprotein, beta, serum, point, quantitative, calculated 77 mg/dL [facility] cholesterol, serum 178 mg/dL [facility] alanine aminotransferase (SGPT), serum 25 1/L [facility] aspartate aminotransferase (SGOT), serum 27 1/L [facility] creatinine, serum 0.98 mg/dL [facility] potassium, serum 4.3 mmol/L [facility] sodium, serum 140 mmol/L [facility] B-12, serum 250 pg/mL [facility] platelet count 197 10*3/uL [facility] red blood cell distribution width 14.6 % [facility] mean corpuscular hemoglobin concentration, RBC 33.6 g/dL [facility] mean corpuscular hemoglobin, RBC 34.0 pg [facility] mean corpuscular volume, RBC 101.2 fL [facility] hematocrit, blood 36.3 % [facility] hemoglobin, blood 12.2 g/dL [facility] erythrocyte (RBC) count 3.59 10*6/mm3 [facility] monocytes as percent of blood leukocytes 4.9 % [facility] lymphocytes as percent of blood leukocytes 44.5 % [facility] leukocyte count, blood 4.1 10*3/mm3 [facility] globulins, serum, total 2.3 g/dL [facility] Estimated Glomerular Filtration Rate (calc) 54 mL/min/{1 .73_m2} [facility] albumin/globulin ratio, serum 1.9 [facility] protein, total, serum 6.7 g/dL [facility] albumin, serum 4.4 g/dL [facility] bilirubin, serum, total 0.3 mg/dL [facility] alkaline phosphatase, serum 42 1/L [facility] alanine aminotransferase (SGPT), serum 24 1/L [facility] aspartate aminotransferase (SGOT), serum 21 1/L [facility] calcium, serum 9.2 mg/dL [facility] blood glucose, fasting 95 mg/dL [facility] creatinine, serum 1.06 mg/dL [facility] urea nitrogen, blood 13 mg/dL [facility] carbon dioxide, serum, total 21 mmol/L [facility] chloride, serum 112 mmol/L [facility] potassium, serum 4.2 mmol/L [facility] sodium, serum 141 mmol/L [facility] cholesterol/HDL ratio, serum 2.2 [facility] triglyceride, serum, fasting 62 mg/dL [facility] HDL cholesterol, serum 69 mg/dL [facility] LDL cholesterol, serum 74 mg/dL [facility] cholesterol, serum 155 mg/dL [facility] thyroid stimulating hormone, serum 3.62 u[IU]/mL [facility] thyroxine, serum, free 1.0 ng/dL [facility] cholesterol/HDL ratio, serum, percent 2.8 (calc) LinkLogic [...] (5-26) blood glucose, random 98 mg[facility] triglyceride, serum, fasting 91 mg/dL [facility] HDL cholesterol, serum 62 mg/dL [facility] LDL cholesterol, serum 97 mg/dL [facility] cholesterol, serum 177 mg/dL [facility] triglyceride, serum, fasting 195 mg/dL [facility] HDL cholesterol, serum 58 mg/dL [facility] LDL cholesterol, serum 113 mg/dL [facility] cholesterol, serum 210 mg/dL [facility] HISTORY OF MEDICATION USE Medication Status Instructions Dates Provider Indications Com ments fenofibric acid (choline) 135 mg capsule,delayed release(DR/EC) active Take 1 capsule by mouth once a day Stephanie Dunham atorvastatin 40 mg tablet active Take 1 tablet by mouth every night at bedtime Stephanie Grparth atorvastatin 40 mg tablet completed TAKE 1 TABLET DAILY AT BEDTIME - Stephanie Dunham fenofibric acid (choline) 135 mg capsule,delayed release(DR/EC) completed TAKE 1 CAPSULE DAILY - Stephanie Dunham Lexapro [address] [facility] fenofibric acid (choline) 135 mg [...] 1 tablet once a day - Cliff Chrisalex aripiprazole 2 mg tablet active Take 1 [...] 1 tablet once a day - Cliff William TOPIRAMATE 100 MG ORAL TABLET completed 2 [...] HOUR completed ONE TAB. DAILY - Brad Forbes RN aspirin 325 mg tablet active 1 [...] Veronica Paz chewing tobacco use no Veronica Loredo vis cigar use no Veronica Paz smoking, year quit 2018 Veronicatao Oneil is number of years as a smoker less [...] smoker. Gallo Long MD smoking, year quit 2018 Gallo wright MD cigarette use yes Gallo Long MD smoking status Former smoker Gallo johnson MD social history reviewed E&M revi ewed - no changes required Gallo Long MD social history E&M Marital Statu s: L fadi with family/friends E thnicity: Smoking History: P atjame currently smokes every day. P atient has [...] as a smoker less than 10 years Lcuiana Ceja smoking, date started 1998 Patience Ceja smoking history, tot al pack/year 18 Luciana Ceja smoking history, tot al pack/day 1 Luciana Ceja cigarette use yes Luciana reagan smoking status Current every day smoker Shaquille eloinaserena Marcial social history E&M Marital Statu s: L fadi with family/friends E thnicity: Smoking History: P tomas currently smokes every day. P tomas has [...] Gallo Long MD seatbelt usage 100 % [facility] physical exercise, frequency, days per week no [facility] alcohol use, average drinks per day social basis only [facility] alcohol use no [facility] caffeine use, averag e drinks per day yes [facility] drug use none [facility] smoking/tobacco cess ation, patient education and counseling yes [facility] passive cigarette sm rubia exposure no [facility] chewing tobacco use no [facility] cigar use no Jesika [place] number of years as a smoker less than 10 years [facility] smoking, date started 1998 [facility] smoking history, tot al pack/year 18 Jesika Elle smoking history, tot al pack/day 1 [facility] cigarette use yes [facility] smoking status Current every day smoker D [facility] social history E&M Marital Statu s: L fadi with family/friends E thnicity: Smoking History: P atient currently smokes every day. P atient has been counseled to quit. Gallo Long MD social history reviewed E&M revi ewed - no changes required Gallo Long MD seatbelt usage 100 % Usama Staples physical exercise, frequency, days per week no Usama Abebe alcohol use, average drinks per day social basis only Usama Lomas alcohol use no Usama Neil adalgisa caffeine use, averag e drinks per day yes UsamaAlice Lomas drug use none Usama Neil adalgisa smoking/tobacco cess ation, patient education and counseling yes Usama Lomas passive cigarette sm rubia exposure no UsamaAlice Lomas chewing tobacco use no EwelinaJeannie Lomas cigar use no Usama Rashaad adalgisa number of years as a smoker less than 10 years Usama Lomas smoking, date started 1998 Virgil Lomas smoking history, tot al pack/year 18 Usama Lomas smoking history, tot al pack/day 1 Usama Lomas cigarette use yes UsamaAlice baxter smoking status Current every day smoker Jess Lomas smoking history, tot al pack/year 18 Ewelina Ricks RN social history reviewed E&M revi ewed - no changes required Gallo Long MD seatbelt usage 100 % Usama Staples physical exercise, frequency, days per week no Usama Lomas alcohol use, average drinks per day social basis only Usama Lomas alcohol use no Usama Rashaad adalgisa caffeine use, averag e drinks per day yes UsamaAlice Lomas drug use none Usama diana smoking/tobacco cess ation, patient education and counseling yes Usama Lomas passive cigarette sm rubia exposure no Usama Lomas chewing tobacco use no Ling Lomas cigar use no Usama diana number of years as a smoker less than 10 years Usama Lomas smoking, date started 1998 Virgil Lomas smoking history, tot al pack/year 17 Usama Lomas smoking history, tot al pack/day 1 Usama Lomas cigarette use yes Usama baxter smoking status Current every day smoker Jess Ricebrandon BostonLomas smoking history, tot al pack/year 17 Ewelina Ricks RN social history reviewed E&M revi ewed - no changes required Gallo Long MD seatbelt usage 100 % Cheri johnson physical exercise, frequency, days per week [...] smoking status Current every day smoker Jess candido Araceli smoking/tobacco cess ation, patient education and counseling yes Gallo Long MD social history reviewed E&M revi ewed - no changes required Gallo Long MD smoking status Current every day smoker Serena agustin Brink social history reviewed E&M revi [...] aaron Long MD social history reviewed E&M revi flashed - no changes required Gallo Long MD [...] Brad Starkey RN drug use none Gallo Peterson physical exercise, frequency, days per week no [employer] caffeine use, averag e drinks per day yes [employer] alcohol use, average drinks per day social basis only [employer] number of years as a smoker less than 10 years [employer] smoking status Smoker [employer] social history E&M Marital Statu s: Benny aponte with family/friends Ethnicity: Gallo Long MD caffeine [...] 10 years [employer] smoking status Smoker LinkLog FUNCTIONAL STATUS Date Observation Value Provider HRA, CV Assess/Plan, Angina (inactive) Management Plan continue current therapy Gallo Long MD HRA, CV Assess/Plan, Angina (inactive) Management Plan continue current therapy Galol Long MD HRA, CV Assess/Plan, Angina (inactive) [...] RN FAMILY HISTORY Family Member Condition Father [place] male <55 Other Family Member Family History Coron kyaw Heart Disease male < 55: Father Family History of Co ronary Artery Disease: INSURANCE PROVIDERS Payer name Policy type / Coverage type [place] red republican ID [place] Medicare [id number] ADVANCE DIRECTIVES Name Date DISCUSSED - NO DECISION MADE TREATMENT PLAN Date Name Performer [id number],S, Gallo johnson MD [id number],S, Gallo johnson MD [id number],S, Gallo johnson MD [id number],B, Gallo johnson MD [id number],S, Gallo johnson MD [id number],S, Gallo johnson MD [id number],S, Gallo johnson MD [id number],S, Gallo johnson MD [id number],S, Gallo johnson MD [id number],S, Gallo johnson MD [id number],S, Gallo johnson MD [id number],S, Gallo johnson MD [id number],B, Gallo johnson MD Cardiology:Losing a little weigh [...] Cardiology Gallo Long MD Cardiology follow up :Quit smoki ng December 2019 Gallo Long MD Cardiology follow [...] up Gallo bryant MD Cardiology follow up Galol bryant MD Cardiology follow up:Sleep study negative [...] tab. daily Orders: S TR - Adenosine (66941) C omplete Echo (CPT-64083) Gallo Long MD follow up Gallo Long [...] ..... One tab. daily Simcor 1000-40 Mg [id number]-[id number] (Niacin-simvastatin) ..... One tab. daily - dispense as written Cholestyramine Pack (Cholestyramine pack) ..... Once daily Gallo Long MD test results : B P today: 135/89 Prior BP: 132/81 (12/02/2013) C HOL: 160 (12/03/2013) LDL: 48 (12/03/2013) HDL: 99 (12/03/2013) T (12/03/2013) Her updated medication list for this problem includes: Trilipix 135 Mg Cpdr (Choline fenofibrate) ..... One tab. daily Simcor 1000-40 Mg [id number] (Niacin-simvastatin) ..... One tab. daily - dispense [...] ..... One tab. daily Simcor 1000-40 Mg [id number]-yjv (Niacin-simvastatin) ..... One tab. daily - dispense [...] (Aspirin) ..... One tab. daily Orders: S leep Study (*) Gallo Long MD test results [...] ..... One tab. daily Simcor 1000-40 Mg El71x-zle (Niacin-simvastatin) ..... One tab. daily - dispense as written Cholestyramine Pack (Cholestyramine pack) ..... Once daily Carotid Duplex Scan: N o significant stenosis of the carotid arteries bilaterally. B ilateral normal antegrade flow into both vertebrals. HV (01/10/2009) Homero Key MD clin desk not review ed: H er updated medication list for this problem includes: Trilipix 135 Mg Cpdr (Choline fenofibrate) ..... One tab. daily Simcor 1000-40 Mg Iy39v-toy (Niacin-simvastatin) ..... One tab. daily - dispense as written Cholestyramine Pack (Cholestyramine pack) ..... Once daily BP today: 132/81 Prior BP: 119/74 (01/19/2013) C HOL: 178 (07/07/2012) LDL: 77 (07/07/2012) HDL: 69 (01/17/2011) T (01/17/2011) Orders: S TR - Adenosine (95110) C omplete Echo (CPT-12256) Homero Key MD clin desk not reviewed Homero dorantes MD follow up: T he following medications were removed from the medication list: Altace 10 Mg Caps (Ramipril) ..... One tab. daily Her updated medication list for this problem includes: Aspirin 325 Mg Tabs (Aspirin) ..... One tab. daily Trilipix 135 Mg Cpdr (Choline fenofibrate) ..... One tab. daily Simcor 1000-40 Mg Ww23v-iho (Niacin-simvastatin) ..... One tab. daily - dispense [...] (Aspirin) ..... One tab. daily Orders: EKG (CPT-52579) Carotid Duplex Scan: N o significant stenosis [...] ..... One tab. daily Simcor 1000-40 Mg Ao35l-bod (Niacin-simvastatin) ..... One tab. daily - dispense [...] ..... One tab. daily Simcor 500-20 Mg Eq82u-cju (Niacin-simvastatin) ..... 2 tablets daily BP today: 100/60 Prior BP: 106/74 (10/09/2010) C HOL: 155 (01/17/2011) LDL: 74 (01/17/2011) HDL: 69 (01/17/2011) T (01/17/2011) Gallo Long MD follow up: H er updated medication list for this problem includes: Altace 10 Mg Caps (Ramipril) ..... One tab. daily Aspirin 325 Mg Tabs (Aspirin) ..... One tab. daily Orders: Complete Echo (CPT-51733) BP today: 100/60 P rior BP: 106/74 [...] ..... One tab. daily Simcor 500-20 Mg Fl20u-cfu (Niacin-simvastatin) ..... 2 tablets daily Orders: C omplete Echo (CPT-46978) BP today: 100/60 Prior BP: 106/74 (10/09/2010) [...] ..... One tab. daily Simcor 500-20 Mg Nc38j-fdi (Niacin-simvastatin) ..... 2 tablets daily BP today: [...] ilateral normal antegrade flow into both vertebrals. [facility] (01/10/2009) Echocardiogram: N ormal left ventricular systolic [...] ..... One tab. daily Simcor 500-20 Mg Vk65p-fdz (Niacin-simvastatin) ..... 2 tablets daily BP today: 106/74 Prior BP: 116/80 (08/14/2010) C HOL: 188 (10/04/2010) LDL: 103 MG/DL (CALC) (10/04/2010) HDL: 68 (10/04/2010) T (10/04/2010) Gallo Long MD follow up: H er updated medication list for this problem includes: Altace 10 Mg Caps (Ramipril) ..... One tab. daily Aspirin 325 Mg Tabs (Aspirin) ..... One tab. daily Orders: Complete Echo (CPT-[id number]) BP today: 116/80 P rior BP: 124/80 (08/15/2009) Labs Reviewed: C reat: 1.26 (08/23/2009) C hol: 198 (08/23/2009) HDL: 60 (08/23/2009) LDL: 114 (08/23/2009) T (08/23/2009) Gallo Long MD follow up: H er updated medication list for this problem includes: Altace 10 Mg Caps (Ramipril) ..... One tab. daily Aspirin 325 Mg Tabs (Aspirin) ..... One tab. daily Orders: EKG (CPT-67677) BP today: 116/80 Prior BP: 124/80 (08/15/2009) [...] ..... One tab. daily Simcor 1000-20 Mg Im47f-sog (Niacin-simvastatin) ..... Take 1 tab by mouth [...] ..... One tab. daily Simcor 1000-20 Mg Tj21j-owz (Niacin-simvastatin) ..... Take 1 tab by mouth at bedtime Orders: S tress Test - Adenosine (53657) & #13;BP today: 116/80 Prior BP: 124/80 [...] One tab. daily Orders: L IPID PANEL (0470) C OMPREHENSIVE METABOLIC PANEL W/EGFR (04936) BP today: 124/80 Prior BP: 110/73 (02/07/2009) [...] into both vertebrals. [facility] (01/10/2009) Echocardiogram: T DS. Normal left ventricular [...] Normal aortic root. (08/07/2009) Gallo Long MD routine-letter fxd: H [...] (07/26/2008) Orders: S tress Test - Nuclear (23340) Gallo Long MD routine-letter fxd: H er updated medication list for this problem includes: Altace 10 Mg Caps (Ramipril) ..... Daily Aspirin 325 Mg Tabs (Aspirin) ..... One tab. daily BP today: 110/73 P rior BP: 120/77 (08/02/2008) Labs Reviewed: C hol: 210 (07/26/2008) HDL: 58 (07/26/2008) LDL: 113 (07/26/2008) T (07/26/2008) Orders: C omplete Echo (CPT-[id number]) Gallo Long MD routine-letter fxd: H er [...] regurgitation. M inimal pulmonic regurgitation. (08/09/2008) Orders: E KG (CPT-81966) Gallo Long MD office visit: T he [...] (07/26/2008) Orders: S tress Test - Nuclear (42590) Gallo Long MD office visit: H er updated medication list for this problem includes: Altace 10 Mg Caps (Ramipril) ..... Daily Aspirin 325 Mg Tabs (Aspirin) ..... One tab. daily BP today: 120/77 Labs Reviewed: C hol: 210 (07/26/2008) HDL: 58 (07/26/2008) LDL: 113 (07/26/2008) T (07/26/2008) Orders: C omplete Echo (CPT-40635) Gallo Long MD office visit: C arotid Duplex Scan: n ormal: (08/21/2005) Echocardiogram: D iastolic dysfunction. EF 60%. Trace MR. Thayer TI. (01/07/2007) Her updated medication list for this [...] Diastolic dysfunction. EF 60%. Trace MR. Jeovany SUN. (01/07/2007) Gallo Long MD Date Name Lipoprotein [...] EKG Gallo Long MD complete d SNOMED-CT: 172694005 [id number] Current Medications Documented Gallo Long MD completed EKG Gallo Long MD complete d SNOMED-CT: 677354848 [id number] Current Medications Documented Gallo Long MD completed SNOMED-CT: [id number] Smoking Cessation Counseling Gallo Lnog MD completed SNOMED-CT: 195204782 462899 Current Medications Documented Gallo Long MD completed EKG Gallo Long MD complete d EKG Homero Key MD complete d ePrescribe - Check t his box if eRx is used Gallo Long MD completed EKG Gallo Long MD complete d EKG Gallo Long MD complete d EKG Gallo Long MD complete d
[2025-02-11 11:47] LABS: Basophils Percent Auto 0.9 % (0.2-1.2); Eosinophils Absolute Auto 0.1 K/mm3 (0-0.3); Eosinophils Percent Auto 2.6 % (0-4.4); Hematocrit 41.4 % (37.0-47.0); Hemoglobin 13.3 g/dL (12.0-15.0); Immature Granulocyte Absolute 0.02 K/mm3 (0.00-0.031); Immature Granulocyte Percent A 0.4 % (0-0.5); Lymphocytes Absolute Auto 1.44 K/mm3 (0.9-3.2); Lymphocytes Percent Auto 31.3 % (18.3-44.2); Mean Corpuscular HGB Conc 32.1 g/dl (32-36); Mean Corpuscular Hemoglobin 32.8 pg (26-34); Mean Platelet Volume 9.3 fl (7.4-10.4); Monocytes Absolute Auto 0.4 K/mm3 (0.1-0.6); Monocytes Percent Auto 7.8 % (2.6-8.5); Neutrophils Absolute Auto 2.6 K/mm3 (1.3-6.7); Platelet Count Result 248 k/mm3 (150-375); Red Blood Count 4.06 M/mm3 (4.2-5.4); Red Cell Distribution Width 12.4 % (11.5-14.5); White Blood Count 4.6 K/mm3 (4.5-10.0)
[2025-02-11 11:56] LABS: Albumin Level 4.7 g/dL (3.5-5.1); Estimated Glomerular Filt Rate 40; Glucose 92 mg/dL (65-110)
[2025-02-11 11:57] LABS: Urine Cotinine NEGATIVE
[2025-02-11 12:00] LABS: Hemoglobin A1C 5.7 % (<5.7)
[2025-02-11 12:01] LABS: INR 1.1; Prothrombin Time 14.7 Seconds (11.1-14.7)
[2025-02-11 12:03] LABS: Partial Thromboplastin Time 27.4 Seconds (22.3-36.8)
[2025-02-11 13:02] LABS: MRSA (PCR) NOT DETECTED (NOT DETECTE)
== END 2025-02-11 09:43 | disposition home or self-care (01) ==
LOC: ANHSURGERY 09:46
PROVIDERS: Anesthesiology; PCP Internal Medicine; Visit Provider Orthopaedic Surgery
DX: Z01.818 Encounter for other preprocedural examination (principal); M17.11 Unilateral primary osteoarthritis, right knee; N18.9 Chronic kidney disease, unspecified
CPT/HCPCS: 36415; 80307; 82040; 82565; 82947; 83036; 85025; 85610; 85730; 87641

== ENCOUNTER 2025-03-01 01:13 | Day surgery (SDC) | payer MEDICARE, SELFPAY ==
--- NOTE | 2025-02-11 10:05 | PC.NURSE ---
Report to the Outpatient Waiting Room, entrance under the green pavilion located off [facility], at time ___9:00AM____ on date ___03/01/25____. Planned Procedure Time: ___11:00AM .? Time changes happen often and if your time is changed the preop area will call you the afternoon before. - You and your visitor will be asked to self-screen and do not enter if you have any COVID symptoms. Please call surgeon if you need to reschedule. - A mask is optional within the hospital at this time. Patients may have clear liquids (water, carbonated beverages, clear teas, apple juice) until 3 hours (8:00AM) prior to surgery with a maximum of 20 ounces. - No food from midnight until time of surgery and no smoking, or chewing tobacco (or any form of nicotine). No chewing gum, candy or mints. Take only the following medications with a SIP of water on the morning of surgery: ___ESCITALOPRAM, LEVOTHYROXINE, LORAZEPAM, VENLAFAXINE. MAY TAKE TRAMADOL NEEDED. DO NOT STOP ANY OF YOUR OTHER PRESCRIPTION MEDICATIONS PRIOR TO SURGERY EXCEPT THE FOLLOWING Hold all vitamins and supplements for 3 days per anesthesiologist.- Medications to discontinue per physician __HOLD ASPIRIN 7 DAYS PRE-OP PER DR THORPE Date to take last dose____02/21/25 Please no make-up, nail belarusian, hairspray, perfume, deodorant, or body powder the day of surgery.? No jewelry (including any body piercings) or valuables the day of surgery, leave them at home.? Please take a shower or bath the night before, or the morning of, surgery with an antibacterial soap.? Wear comfortable, loose fitting clothing.? - Jewelry must be removed prior to entering the operating room.? Rings and piercings that are not removed may be cut off. - The hospital will not accept responsibility for valuables.? - Please leave all valuables, including medications, at home the day of surgery. If you are going home after surgery, a licensed pedicab driver must drive you home.? - NO public transportation without another adult if you receive anesthesia. - We recommend that an adult stay with you for 24 hours following discharge. - We also recommend that you do not drive, make important decision, drink alcoholic beverages, or take any drugs that were not prescribed by your health care provider for at least 24 hours after your discharge time. Follow any additional instructions given to you from your surgeon. Telephone instructions given to ___PATIENT and asked if any additional questions and then verbalized understanding. Patient advised to call surgeon office or pre surgery nurse liaison [phone] if any additional questions.
[2025-02-11 10:33] VITALS: BP 112/60; PULSE 70; RESP 16; TEMP 36.4; O2SAT 97; BMI 33.8
[2025-03-01] VITALS (14 sets, daily range): BP systolic 110–157; BP diastolic 52–83; PULSE 72–95; RESP 12–21; TEMP 35.9–36.8; O2SAT 94–100
--- NOTE | ~2025-03-01 | XR_ITS ---
Right Knee Technique: Portable AP and crosstable lateral views Clinical History: Status post TKR Findings: Patient is status post total knee replacement. Orthopedic hardware alignment appears anatom ic. No hardware complication is evident. Subcutaneous emphysema and swelling is likely postoperative in nature. No acute osseous fracture is seen. Impression: Status post total knee replacement, without evidence of hardware complication. Reviewed, dictated and finalized at location . Impression: Status post total knee replacement, without evidence of hardware complication.
--- OUTSIDE RECORDS SUMMARY | 2025-03-01 01:16 | XMS_ITS | Clinical Summary ---
Author Organization [facility] Facility Address [address] [place] [address], [place] [address] Care Team Providers Care Registered Medical Transcriptionist Name Role Phone Unavailable Primary Care Provider [...] a venous catheter ONCE A YEAR Active Empagliflozin (Jardiance) 10 MG tablet Take [...] moderate pain 60 tablet 2 5 Active lisinopril 20 MG tablet Take 1 tablet (20 mg total) by mouth 1 (one) time each day 90 tablet 5 Active lisinopril 20 MG tablet TAKE 1 TABLET DAILY 90 tablet 3 4 02/22/20 Discontinu ed(Reorder (does not appear on AVS)) lisinopril 20 MG tablet Take 1 tablet (20 mg total) by mouth 1 (one) time each day 90 tablet 5 02/24/20 Discontinu ed(Reorder (does not appear on AVS)) Active Problems Problem Noted Date Diagnosed Date Prediabetes 12/14/2024 Osteoarthritis 08/17/2024 Gastroesophageal reflux disease 11/12/2022 Chronic fatigue syndrome 07/19/2021 Stage 3a chronic kidney disease 07/19/2021 Coronary arteriosclerosis 07/19/2021 Dysphagia 07/19/2021 Dysthymia 07/19/2021 Essential hypertension 07/19/2021 Noninfectious gastroenteritis 07/19/2021 Mixed hyperlipidemia 07/19/2021 Vitamin D deficiency 07/19/2021 Obesity 02/01/2008 Encounters Date Type Department Care Team Description 02/23/2025 Refill [facility], [address] [phone] Liliana Nielson CMA 02/23/2025 Office Communication [facility], [address] [phone] Wenceslao Solo MD 02/21/2025 Refill [facility], [address] [phone] Liliana Nielson, GUILLERMO 12/14/2024 11:00 AM SIFTER OPERATOR Office Visit [facility], [facility] [address] [facility] [address] [place] [address] Wenceslao Solo MD Stage 3a chronic kidney disease (HCC) (Primary Dx); Essential hypertension; Prediabetes; Coronary arteriosclerosis, not otherwise specified; Mixed hyperlipidemia; Vitamin D deficiency, not otherwise specified; Primary generalized osteoarthritis; Dysthymia 12/14/2024 Refill [facility] [address] [facility] [address] [place] [address] [facility] 12/14/2024 Refill [facility] [address] [phone] [facility], [facility] 12/07/2024 Orders Only [facility] [address] [facility] [place] [address] Wenceslao Solo MD from Last 3 [...] Comments Blood Pressure 120/80 12/14/2024 10:54 AM SIFTER OPERATOR Pulse 68 12/14/2024 10:54 AM SIFTER OPERATOR Temperature 36.1 C (97 F) 12/14/2024 10:54 AM SIFTER OPERATOR Respiratory Rate 18 12/14/2024 10:54 AM SIFTER OPERATOR Oxygen Saturation 97% 12/14/2024 10:54 AM SIFTER OPERATOR Inhaled Oxygen Concentration - - Weight 91 kg (200 lb 11.2 oz) 12/14/2024 10:54 A M SIFTER OPERATOR Height 160 cm (5' 3 ) 05/18/2024 10:27 AM CDT Body Mass Index 35.55 05/18/2024 10:27 AM CDT Plan of Treatment Upcoming Encounters Date Type Department Care Team (Late st Contact Info) Description 03/29/2025 10:30 AM CDT Office Visit [facility] [address] [phone] Wenceslao Solo MD [address] [place] [address] [place] [phone] Health Maintenance Due Date Last Done Comments [...] Diagnosis Comments NOTE Routine 12/07/2024 9:18 AM SIFTER OPERATOR URINALYSIS RFX MICROSCOPIC Routine 12/07/2024 9:18 AM SIFTER OPERATOR HEMOGLOBIN A1C Routine 12/07/2024 9:18 AM SIFTER OPERATOR PROTEIN / CREATININE RATIO, URINE Routine 12/07/2024 9:18 AM SIFTER OPERATOR VITAMIN D 25 HYDROXY Routine 12/07/2024 9:18 AM SIFTER OPERATOR PTH, INTACT Routine 12/07/2024 9:18 AM SIFTER OPERATOR CBC AND DIFFERENTIAL Routine 12/07/2024 9:18 AM SIFTER OPERATOR COMPREHENSIVE METABOLIC PANEL Routine 12/07/2024 9:18 AM SIFTER OPERATOR PHOSPHATE ( PHOSPHORUS) Routine 12/07/2024 9:18 AM SIFTER OPERATOR LIPID PANEL Routine 12/07/2024 9:18 AM SIFTER OPERATOR from Last 3 Months Results * NOTE (12/07/2024 9:18 AM SIFTER OPERATOR) Note: See order comments Comment: This urine was analyzed for the presence of WBC, RBC, bacteria, casts, and other formed elements. Only those elements seen were reported. 12/07/2024 9:18 AM SIFTER OPERATOR 12/07/2024 9:24 AM SIFTER OPERATOR Narrative Resulting Agency Comment Performing Organization Information: Site ID: Name: [email or web address] Address: [address] [place] [address] Director: Felipe Gao us Wenceslao Solo MD LAB [id number] NSOLICITED RESULTS Final Result Performing Organization Address City/[facility]/ZIP Co de Phone Number [address] See order comments [place] [address] * Protein, Total, Random Urine w/Creatinine (Protein/Creat Ratio) (12/07/2024 9:18 AM SIFTER OPERATOR) Creatinine, Ur 114 20 - 275 mg/dL See order comments Urine Protein/Creatin ine Ratio 88 24 - 184 mg/g creat See order comments Protein/Creatin ine Ratio, Urine 0.088 0.024 - 0.184 mg/mg creat See order comments Protein Urine Random 10 5 - 24 mg/dL See order comments 12/07/2024 9:18 AM SIFTER OPERATOR 12/07/2024 9:24 AM SIFTER OPERATOR Narrative Resulting Agency Comment Performing Organization Information: Site ID: Name: [email or web address] Address: [address] [place] [address] [address] Director: Felipe Gao us Wenceslao Solo MD LAB URINE ORDERABLES Final R esult Performing Organization Address City/[facility] Co de Phone Number [address] See order comments [place] [address] * (ABNORMAL) Urinalysis Reflex Microscopic (12/07/2024 9:18 AM SIFTER OPERATOR) Color, Urine YELLOW YELLOW See ord er comments Appearance Urine CLEAR CLEAR See order comments Specific [place], UA 1.022 1.001 - 1.035 See order [...] by t he ancillary. 12/07/2024 9:18 AM SIFTER OPERATOR 12/07/2024 9:24 AM SIFTER OPERATOR Narrative Resulting Agency Comment Performing Organization Information: Site ID: Name: [email or web address] Address: [address] [address] Director: Felipe Gao us Wenceslao Solo MD LAB URINE ORDERABLES Final R esult [facility] See order comments [place] [address] * Vitamin D 25 Hydroxy (12/07/2024 9:18 AM SIFTER OPERATOR) Vitamin D, 25-OH, Total, [place] 32 30 [...] D, (D2,D3), LC/MS/MS is recommended: order code 97429 (patients >2yrs). See Note 1 Note 1 For additional information, please refer to http://education.[employer]/faq/HLQ162 (This link is being provided for informational/ educational purposes only.) 12/07/2024 9:18 AM SIFTER OPERATOR 12/07/2024 9:24 AM SIFTER OPERATOR Narrative Resulting Agency Comment Performing Organization Information: Site ID: [place] Name: [facility] Address: [address] [address] Director: Felipe Gao MD Wenceslao Solo MD LAB BLOOD ORDERABLES Final R esult [facility] See order comments [place] [address] * (ABNORMAL) CBC and Differential (12/07/2024 9:18 AM SIFTER OPERATOR) Pathologist [facility] WBC 4.3 3.8 - 10.8 Thousand/ uL [...] by t he ancillary. 12/07/2024 9:18 AM SIFTER OPERATOR 12/07/2024 9:24 AM SIFTER OPERATOR Narrative Resulting Agency Comment Performing Organization Information: Site ID: Name: [email or web address] Address: [address] [address] Director: Felipe Gao Wenceslao Solo MD LAB BLOOD ORDERABLES Final R esult Performing Organization Address [facility] de Phone Number [facility] See order comments [place] [address] * Phosphorus (12/07/2024 9:18 AM SIFTER OPERATOR) Pathologist [facility] Phosphorus 4.0 2.1 - 4.3 mg/dL See order comments 12/07/2024 9:18 AM SIFTER OPERATOR 12/07/2024 9:24 AM SIFTER OPERATOR Narrative Resulting Agency Comment Performing Organization Information: Site ID: Name: [email or web address] Address: [address] [place] [address] Director: Felipe Gao us Wenceslao Solo MD LAB BLOOD ORDERABLES Final R esult Performing Organization Address [facility] de Phone Number [facility] See order comments [place] [address] * (ABNORMAL) PTH, Intact (12/07/2024 9:18 AM SIFTER OPERATOR) Parathyroid Hormone, Intact 13(L) 16 - 77 pg/mL See order comments Comment: Interpretive Guide Intact PTH Calcium ------- Normal Parathyroid Normal Normal Hypoparathyroidism Low or Low Normal Low Hyperparathyroidism Primary Normal or High High Secondary High Normal or Low Tertiary High High Non-Parathyroid Hypercalcemia Low or Low Normal High 12/07/2024 9:1 8 AM SIFTER OPERATOR 12/07/2024 9:24 AM SIFTER OPERATOR Narrative Resulting Agency Comment Performing Organization Information: Site ID: [place] Name: [email or web address] Address: [address] [address] Director: Felipe Gao MD Wenceslao Solo MD LAB BLOOD ORDERABLES Final R esult Performing Organization Address [facility] de Phone Number [address] See order comments [place] [address] * (ABNORMAL) Hemoglobin A1c (12/07/2024 9:18 AM SIFTER OPERATOR) Hemoglobin A1C 6.1(H) <5.7 % of total [...] of diabetes for children. 12/07/2024 9:18 AM SIFTER OPERATOR 12/07/2024 9:24 AM SIFTER OPERATOR Narrative Resulting Agency Comment Performing Organization Information: Site ID: [place] Name: [email or web address] Address: [address] [facility] [place] [address] Director: Felipe Gao Wenceslao Solo MD LAB BLOOD ORDERABLES Final R esult Performing Organization Address [facility] Co de Phone Number [address] See order comments [place] [address] * Lipid panel (12/07/2024 9:18 AM SIFTER OPERATOR) Cholesterol 156 <200 mg/dL See ord er [...] LDL-C. Patrick SMITH et al. YARY. 2013;310(19): 2357-1475 (http://education.[employer]/faq/EAG526) Chol/HDL Ratio 2.3 <5.0 (calc) See order comments Non HDL Cholesterol 89 <130 mg/dL (calc) See order comments Comment: For patients with diabetes plus 1 major ASCVD risk factor, treating to a non-HDL-C goal of <100 mg/dL (LDL-C of <70 mg/dL) is considered a therapeutic option. 12/07/2024 9:18 AM SIFTER OPERATOR 12/07/2024 9:24 AM SIFTER OPERATOR Narrative Resulting Agency Comment Performing Organization Information: Site ID: Name: [email or web address] Address: [facility] [place] [address] Director: Felipe Gao Wenceslao Solo MD LAB BLOOD ORDERABLES Final R esult [facility] See order comments [place] [address] * (ABNORMAL) Comprehensive Metabolic Panel (12/07/2024 9:18 AM SIFTER OPERATOR) Glucose 104(H) 65 - 99 mg/dL See [...] See orde r comments 12/07/2024 9:18 AM SIFTER OPERATOR 12/07/2024 9:24 AM SIFTER OPERATOR Narrative Resulting Agency Comment Performing Organization Information: Site ID: Name: [email or web address] Address: [facility] [place] [address] Director: Felipe Gao Wenceslao Solo MD LAB BLOOD ORDERABLES Final R esult [facility] See order comments [place] [address] from Last 3 Months Insurance Medicare [facility]
--- OUTSIDE RECORDS SUMMARY | 2025-03-01 01:16 | XMS_ITS | Encounter Summary ---
Author Organization [facility] Address [address] [facility] [place] [address] Phone Care Team Providers Care Umbrella Tipper Hand Name Role Phone Unavailable Primary Care Provider Unavailabl e Reason for Visit * Reason Comments Med Refill Encounter Details Date Type Department Care Team (Late st Contact Info) Description 03/26/2023 [facility]ill [facility] [place] [facility] [address] [facility] [address] [place] [address] Wenceslao Solo MD [address] [facility] [address] [place] [address] Social History Tobacco Use Types [...] Description 03/29/2025 10:30 AM CDT Office Visit [facility] [place] [facility] [address] [facility] [address] [place] [address] Wenceslao Solo MD [address] [facility] [address] [place] [address] documented as of this encounter Visit Diagnoses Not on filedocumented in this encounter
--- OUTSIDE RECORDS SUMMARY | 2025-03-01 01:17 | XMS_ITS | Data Portability ---
Author Organization [place] [facility] [employer], Main Office Address [address] [place] [address] Care Team Providers Care Keno Manager Name Role Phone ARCHIE MONGE Primary Care Provider MONGE ARCHIE Referring Provider Assessment No assessment recorded. Plan of Treatment Reminders Order Date Submit Date Provider Last Modified By Organization Details Last Modified Time Details Appointments None recorded. Lab lipid panel, serum [email or web address] [facility], [address] [place], [address], 5 09:43:20 CMP, serum or plasma [id number] [facility], [address] [place], [address], 5 09:43:20 CBC w/ auto diff [id number] [facility], [address] [place], [address], 5 09:43:20 TSH, serum or plasma [address] [facility], [address] [place], [address], 5 09:43:21 T4, free, serum 025 025 [id number] [facility], [address] [place], [address], 5 09:43:21 lipid panel, serum [id number] [facility], [address] [place], [address], 4 17:08:00 CMP, serum or plasma [id number] [facility], [address] [place], [address], 4 17:08:00 CBC w/ auto diff [id number] [facility], [address] [place], [address], 4 17:08:00 TSH, serum or plasma 024 [id number] [facility], [address] [place], [address], 4 17:07:59 T4, free, serum [id number] [facility], [address] [place], [address], 4 17:08:00 PTH (parathyr oid hormone), intact, serum or plasma [id number] [facility], [address] [place], [address], 4 17:44:27 phosphoru s, serum or plasma 024 024 [id number] [facility], [address] [place], [address], 4 17:44:27 vitamin D, 25-hydrox y, total, serum 024 024 [id number] [facility], [address] [place], [address], 4 17:44:27 uric acid, serum or plasma [id number] [facility], [address] [place], [address], 4 17:44:27 CBC w/ auto diff [id number] [facility], [address] [place], [address], 4 17:44:26 lipid panel, serum [address] [facility], [address] [place], [address], 4 17:44:26 CMP, serum or plasma [id number] [facility], [address] [place], [address], 4 17:44:27 TSH, serum or plasma [id number] [facility], [address] [place], [address], 4 17:44:26 T4, free, serum [id number] [facility], [address] [place], [address], 4 17:44:26 HbA1c (hemoglob in A1c), blood [id number] [facility], [address] [place], [address], 3 09:37:15 CBC w/ auto diff [id number] [facility], [address] [place], [address], 3 09:37:14 lipid panel, serum 023 023 [id number] [facility], [address] [place], [address], 3 09:37:15 CMP, serum or plasma [id number] [facility], [address] [place], [address], 3 09:37:15 TSH, serum or plasma [id number] [facility], [address] [place], [address], 3 09:37:14 T4, free, serum [address] [facility], [address] [place], [address], 3 09:37:14 vitamin D, 25-hydrox y, total, serum [id number] [facility], [address] [place], [address], 3 10:03:09 lipid panel, serum [address] [facility], [address] [place], [address], 3 10:03:08 CMP, serum or plasma [id number] [facility], [address] [place], [address], 3 10:03:08 TSH, serum or plasma [address] [facility], [address] [place], [address], 3 10:03:08 T4, free, serum [address] [facility], [address] [place], [address], 3 10:03:08 CBC w/ auto diff [id number] [facility], [address] [place], [address], 3 10:03:08 Referral None recorded. Procedures None recorded. Surgeries None recorded. Imaging None recorded. Medication Orders None recorded. Patient TargetsNo targets recorded. Patient Instructions Encounter Date Encounter Id Patient Instructions Last Modified By Organization Details Last Modified Time 01/14/2023 [id number] Follow-up for coronary artery disease -hypertension-hype rlipidemia-hypothy roidism- depressive disorder. Plan to check blood work consisting of CBC, CMP, lipid, thyroid and vitamin-D level. Check a bone density scan. Has up-to-date on mammography and colonoscopy. Follow-up in six months DEXA scan [email or web address] Not available 01/14/2023 11:52:26 07/15/2023 [id number] Coronary artery disease -hypertension-hypo thyroidism -impaired fasting [...] recognize, using context, where substitutions have occurred. [email or web address] Not available 07/15/2023 11:58:58 12/12/2023 [id number] Follow-up krishna ry artery disease -hypertension-hypo thyroidism [...] recognize, using context, where substitutions have occurred. [place] [id number] Not available 12/12/2023 12:30:43 06/10/2024 [id number] Follow-up krishna ry artery disease, hypertension, hypothyroidism, [...] recognize, using context, where substitutions have occurred. [place] [id number] Not available 06/10/2024 12:15:56 Reason for Referral None Reported. Results Created Date Observation Date Name Description Value Unit Range Abnormal Flag Note LastModifiedBy Organization Detail LastModifiedTime 10/02/2009/30/2023 DEXA No observ ation record ed. [address], [place], [address], 10/02/2023 10:26:37 08/25/20 24 08/25/2024 XR, knee No observ ation record ed. [address], [place], [address], 08/25/2024 14:13:54 12/13/19 25 12/13/2024 CT, knee, w/o contr ast No observ ation record ed. [address], [place], [address], 12/14/2024 08:24:18 12/23/19 25 12/22/2024 MAMMO , scree cam, bilat eral No observ ation record ed. [address] [facility] [address], [place], [address], 12/22/2024 13:53:44 Result Notes None recorded. Problems Name Problem SNOMED Code Status Onset Date Resolution Date Notes Provider Name and Address Organization Details Recorded Time Pes anserinus bursitis of left knee 23264793114 32489 Active 2019 Not Available [facility] 3 07:31:47 History of left total knee replaceme nt 56674849081 45618 Active 2019 Not Available [facility] 3 07:31:47 Acute sinusitis 60336648 Active 2021 Not Available [facility] 3 07:31:47 Radiother apy follow-up 924868688 Active Not Available [facility] 3 07:31:47 Gastroeso phageal reflux disease 017831516 Active 2019 Not Available [facility] 3 07:31:47 Microscop ic colitis 314831885 Active 2018 Not Available [facility] 3 07:31:47 Pure hyperchol esterolem ia 694975243 Active Not Available [facility] 3 07:31:47 Pruritic disorder 266726065 Active Not Available [facility] 3 07:31:47 Knee pain Active Not Available [facility] 3 07:31:47 Vitamin D deficienc y 52178427 Active 2021 Not Available [facility] 3 07:31:48 Depressiv e disorder 14292664 Active Not Available [facility] 3 07:31:48 Eosinophi lic gastroent eritis 394801436 Completed Not Available [facility] 3 07:31:48 Impaired fasting glycemia 569144185 Active 2016 Not Available [facility] 3 07:31:48 Osteoarth ritis 778350625 Active Not Available [facility] 3 07:31:48 Dysphagia 33469609 Active Not Available [facility] 3 07:31:48 Hypothyro idism 67161768 Active 2017 Not Available [facility] 3 07:31:48 Chronic kidney disease stage 3 623734259 Active Not Available [facility] 3 07:31:48 Coronary arteriosc lerosis 79763301 Active Not Available [facility] 3 07:31:48 Hyperlipi demia 87091879 Active 2017 Not Available [facility] 3 07:31:49 Essential hypertens ion 38644032 Active Not Available [facility] 3 07:31:49 Diarrhea 96186577 Active Not Available [facility] 3 07:31:49 Derangeme nt of knee 37309014 Active Not Available [facility] 3 07:31:49 Fatigue 99360963 Active Not Available [facility] 3 07:31:49 Senile osteoporo sis 26695322 Active 2022 Michelle ferro, [facility] [employer] [facility] 3 12:02:01 Obese class I 67519353329 4107 Active 2022 Archie Monge MD [address], [place] [address], [place], [address] , [facility] [employer] [facility] [employer] [facility] 3 11:55:48 Acute bronchiti s 02578746 Active 2022 Archie Monge MD [address], [facility] [address], [place], [address] , [facility] [employer] [facility] [employer] [facility] 3 12:46:15 Bee sting 881495525 Active 2023 Archie Monge MD [address], [place] [address], [place], [address] , [facility] [employer] [facility] 4 17:24:41 Pain of right knee joint 10472529841 4100 Active 2023 GUILLERMO Lamb, [facility] [employer] [facility] 4 16:09:35 Notes:Some problems listed i n Documents: #[id number], #[id number] could not be added to this patient's chart. Please review these documents and add these problems to the patient's chart manually as needed. Problem Notes None recorded. Procedures Surgical History None recorded. Imaging Results Imaging Date Name Status LastModified by [facility]iz [facility] Details LastModified Time 09/30/2023 DEXA completed [address], [place], [address], 10/02/2023 10:26:37 08/25/2024 XR, knee completed [address] [facility] [address] [facility] [address], [place], [address], 08/25/2024 14:13:54 12/13/2024 CT, knee, w/o contrast completed [place] [address] [facility] [address], [place], [address], 12/14/2024 08:24:18 12/22/2024 MAMMO, screening, bilateral completed [address] [facility] [address], [place], [address], 12/22/2024 13:53:44 Procedure Notes None recorded. Medical Equipment None Reported. Allergies Allergen ID Allergen Name Allergen Category Reaction Reaction Severity Criticality Documentation Date Start Date Code Code System Note Provider Name and Address Organization Details Recorded Time 60941 Zoloft medicatio n diarrhea Not available Not available 12/18/2022 31213 RxNorm Not Available [facility] 07:37:22 Medications Name Sig Start Date Stop [...] administ ered by the provider 11/09 completed [facility]: 0003-049 02-06 Not Available Not Available Not [...] completed Not Available Not Available Not Available Prosperity 7.5 mg-325 mg tablet 01/07 completed Not [...] administ ered by the provider 11/09 completed [facility]: 0409-427 04-05 Not Available Not Available Not [...] Updated DateTime 3 162.56 cm 34.2 kg/m2 71380.8 8 g 93 /min 97 [degF] 97 % 97 % 120 mm[Hg] 78 mm[Hg] Deirdre BELL [place] [employer] [facility] 3 11:38:53 Date Recorded Body height Body mass index (BMI) Body weight Heart rate Body temperature Oxygen saturation Oxygen saturation in Arterial blood by Pulse oximetry Systolic blood pressure Diastolic blood pressure Provider Name and Address Organization Details Last Updated DateTime 3 162.56 cm 34.5 kg/m2 45256.0 7 g 95 /min 97 [degF] 98 % 98 % 132 mm[Hg] 80 mm[Hg] Deirdre Tee [facility] 3 11:40:08 Date Recorded Body height Body mass index (BMI) Body weight Heart rate Body temperature Oxygen saturation Oxygen saturation in Arterial blood by Pulse oximetry Systolic blood pressure Diastolic blood pressure Provider Name and Address Organization Details Last Updated DateTime 4 162.56 cm 34.7 kg/m2 67408.6 6 g 73 /min 97.9 [degF] 96 % 96 % 130 mm[Hg] 82 mm[Hg] Daja AliceaMARTHA [employer] 4 12:01:28 Date Recorded Body height Body mass index (BMI) Body weight Heart rate Body temperature Oxygen saturation Oxygen saturation in Arterial blood by Pulse oximetry Systolic blood pressure Diastolic blood pressure Provider Name and Address Organization Details Last Updated DateTime 4 162.56 cm 33.6 kg/m2 96283.1 g 93 /min 97.2 [degF] 95 % 95 % 124 mm[Hg] 82 mm[Hg] Daja Alicea MARTHA [facility] 4 11:56:35 Date Recorded Body height Body mass index (BMI) Body weight Heart rate Body temperature Oxygen saturation Oxygen saturation in Arterial blood by Pulse oximetry Systolic blood pressure Diastolic blood pressure Provider Name and Address Organization Details Last Updated DateTime 5 162.56 cm 33.1 kg/m2 70195.3 3 g 102 /min 97 [degF] 97 % 97 % 122 mm[Hg] 70 mm[Hg] Deirdre Tee [facility] 5 14:39:38 Social History Question Answer Notes LastModified by Organizat ion Details LastModified Time Tobacco Smoking Status Never Smoker Not Available [employer] 12/18/2022 07:27:07 Do You Have An Advance Directive? No MIGRATION.[id number] Information not available 12/18/2022 In The 14 Days Before Symptom Onset, Have You Had Close Contact With A Laboratory-confir med COVID-19 While That Case Was Ill? No MIGRATION.[id number] 52519 Information not available 12/18/2022 In The 14 Days Before Symptom Onset, Have You Had Close Contact With A Person Who Is Under Investigation For COVID-19 While That Person Was Ill? No MIGRATION.25201 21673 Information not available 12/18/2022 What Type Of Diet Are You Following? REGULAR MIGRATION.20109 20635 Information not available 12/18/2022 Have There Been Any Changes To Your Family Or Social Situation? No MIGRATION.45142 37309 Information not available 12/18/2022 What Is The Fluoride Status Of Your Home? Unknown MIGRATION.19964 21907 Information not available 12/18/2022 Are There Any Guns Present In Your Home? Yes MIGRATION.31638 45507 Information not available 12/18/2022 Do You Use Insect Repellent Routinely? No MIGRATION.13644 29969 Information not available 12/18/2022 Where Do You Live? [place] MIGRATION.53609 54591 Information not available 12/18/2022 Do You Have A Medical Power Of Rocket Scientist? No MIGRATION.20804 48550 Information not available 12/18/2022 What Was The Date Of Your Most Recent Tobacco Screening? 03/08/2022 MIGRATION.98730 89854 Information not available 12/18/2022 Do You Have Any Pets? Yes MIGRATION.00294 43624 Information not available 12/18/2022 What Is Your Relationship Status? MIGRATION.07768 04033 Information not available 12/18/2022 Do You Use Your Seat Belt Or Car Seat Routinely? Yes MIGRATION.00190 71877 Information not available 12/18/2022 Do You Have Smoke And Carbon Monoxide Detectors In Your Home? Yes MIGRATION.68736 26418 Information not available 12/18/2022 Are You Passively Exposed To Smoke? No MIGRATION.25141 00664 Information not available 12/18/2022 Are There Any Smokers In Your House? No MIGRATION.87532 56714 Information not available 12/18/2022 Do You Use Sunscreen Routinely? No MIGRATION.49587 55270 Information not available 12/18/2022 Have You Recently Traveled Abroad? No MIGRATION.31196 57622 Information not available 12/18/2022 Do You Have Any Dietary Restrictions? No MIGRATION.02338 47507 Information not available 12/18/2022 Sex: Unknown Functional Status Question Answer Note LastModified by Organizat ion Details LastModified Time Do you or have you ever used any other forms of tobacco or nicotine? No MIGRATION.15288169 Information not available 12/18/2022 What is your level of alcohol consumption? None MIGRATION.24337183 Information not available 12/18/2022 What is your exercise level? Occasional MIGRATION.26199776 Information not available 12/18/2022 Mental Status None [...] HEARING PROBLEMS N MUMPS N SHINGLES N DEPRESSION (INCLUDING POST ) Y BOWEL PROBLEMS N STROKE/TIA N ULCERS N BENIGN PROSTATIC HYPERPLASIA [...] N CHRONIC PAIN SYNDROME N HYPOTHYROIDISM Y CAROTID BLOCKAGE N CONSTIPATION N BACK / NECK PROBLEMS N HAVE YOU BEEN HOSPITALIZED OR SEEN IN [facility] IN THE PAST YEAR ? N [...] (COVID-19) vaccine, UNSPECIFIED 1 completed Not Available [facility] 08/12/2023 11:52:04 SARS-COV-2 (COVID-19) vaccine, UNSPECIFIED 1 completed Not Available [facility] 08/12/2023 11:52:04 Past Encounters Encounter ID Performer Location Encounter Start Date Encounter Closed Date Diagnosis/Indication Diagnosis SNOMED-CT Code Diagnosis ICD10 Code Diagnosis Note [id number] Huber Logan MD [facility] [place] [address] [place] [address] 01/18/2021 00:00:00 01/18/2021 12:21:07 [id number] Huber Logan MD [facility] [place] [address] [place] [address] 02/15/2021 00:00:00 02/15/2021 12:04:50 [id number] Archie Monge MD [facility] [place] [facility] [place] [address] 03/02/2021 00:00:00 03/02/2021 15:20:43 [id number] Archie Monge MD [facility] [place] [facility] [place] [address] 07/06/2021 00:00:00 07/06/2021 12:34:55 [id number] Archie Monge MD [facility] [place] [facility] [place] [address] [address] 11/09/2021 00:00:00 11/09/2021 11:40:23 [id number] Archie Monge MD [facility] [place] [address] [place] [address] 03/08/2022 00:00:00 03/08/2022 11:50:05 [id number] Archie Monge MD [facility] [place] [address] [place] [address] [place] [address] 07/16/2022 00:00:00 07/16/2022 11:44:46 [id number] Archie Monge MD [facility] [place] [address] [place] [address] [place] [address] 01/14/2023 11:19:52 01/14/2023 12:00:51 Coronary arteriosclerosis 73192540 I25.10 Essential hypertension 13381266 I10 Hypothyroidism 69486672 E03.9 Pure hypercholesterolemia 121184255 E78.00 Depressive disorder 3548 9007 F32.A Vitamin D deficiency 347 86875 E55.9 [id number] Archie Monge MD [facility] [place] [address] [place] [address] [place] [address] 07/15/2023 11:25:36 07/15/2023 12:02:44 Coronary arteriosclerosis 32838008 I25.10 Essential hypertension 96821812 I10 Hypothyroidism 95458933 E03.9 Impaired f asting glycemia 364989501 R73.01 Obese class I 4776752802 27894 E66.9 Hyperlipidemia 78028772 E78.5 [id number] Archie Monge MD [facility] [place] [address] [place] [address] [place] [address] 12/12/2023 11:18:58 12/12/2023 12:33:16 Coronary arteriosclerosis 97385656 I25.10 Essential hypertension 27316403 I10 Hypothyroidism 63190575 E03.9 Hyperlipidemia 76869614 E78.5 Chronic ki dney disease stage 3 503737716 N18.30 [id number] Archie Monge MD [facility] [place] [address] [place] [address] [place] [address] 06/10/2024 11:47:49 06/10/2024 12:22:10 Chronic kidney disease stage 3 519170575 N18.30 Coronary arteriosclerosis 56175480 I25.10 Essential hypertension 47889461 I10 Hypothyroidism 83367139 E03.9 Pure hypercholesterolemia 252511179 E78.00 [id number] Archie Monge MD [facility] [address] [address] [facility] [address] [place] [address] 12/09/2024 14:23:47 12/09/2024 14:59:51 Coronary arteriosclerosis 60319484 I25.10 Essential hypertension 83324047 I10 Gastroesop hageal reflux disease 360136768 K21.00 Pure hypercholesterolemia 206925095 E78.00 Obese class I 7055809357 97430 E66.9 Hypothyroidism 34272915 E03.9 Health Concerns Section Related Observation LastModified by Organization Detai ls LastModified Time None Recorded Concern Status LastModified by Organization Details LastModified Time None Recorded Advance Directives Directive N: Payers Encounter Date Sequence Insurance Name Policy Number Policy Lozada Covered Member ID Lozada Member ID Guarantor Name 01/14/2023 1 [place] Ewelina Rolle Taurus [id number] Ewelina Rolle Taurus 01/14/2023 2 [id number] Ewelina Rolle Taurus [id number] Ewelina Rolle Taurus 07/15/2023 1 [place] Ewelina Rolle Taurus [id number] 95 Ewelina Rolle Taurus 07/15/2023 2 [id number] Ewelina Rolle Taurus [id number] Ewelina Rolle Taurus 12/12/2023 1 [place] Ewelina Rolle Taurus [id number] 95 Ewelina Rolle Taurus 12/12/2023 2 [id number] Ewelina Rolle Taurus [id number] Ewelina Rolle Taurus 06/10/2024 1 [place] Ewelina Rolle Taurus [id number] 95 Ewelina Rolle Taurus 06/10/2024 2 [id number] Ewelina Rolle Taurus [id number] Ewelina Rolle Taurus 12/09/2024 1 [place] Ewelina Rolle Taurus [id number] 95 Ewelina Rolle Taurus 12/09/2024 2 [id number] Ewelina Rolle Taurus [id number] Ewelina Rolle Taurus Notes Date Note Type Note Provider Name and Address Organization Details Recorded Time 3 text/html Patient Name: Ewelina MasononDate Of Service: Friday ( 01.14.2023 ): 1955 [...] 1 MG (TABLET - ORAL) 2 Tablets Tid-dr. AbbottmanLipitor 40 MG (TABLET - ORAL) DailyTrazodone 100 MG (TABLET - ORAL) Two HsReclast 5 MG /100 ML (INJECTABLE - INTRAVENOUS) Once A YearLexapro 5 MG TABLET, FILM COATED Once DailyAripiprazole 5 MG TABLET Once Daily At BedtimeADRs List Reviewed 01/14/2023Zoloft DiarrheaVaccination and Ccejptwybuiy1693-42 Covid PfizerSurgical HistoryLeft TKAPreventative Testing Confirmed by Our Eijzuwi4710/16/2022 MAMMOGRAM / HAIC11/17/2019 UPPER MQSUAQLDS26/04/2019 COLONOSCOPY (10 YEARS) ALBUMIN 4.3 G/DLSocial HistorySOCIAL HISTORY:Smoking Hx: 1.5 of cigarettes per day for 5 years. Drinking Hx: 1 Case beers per week, 5 Cups of tea per day, < 6 cans of soft drinks per day.Exercise: InfrequentlySexual Hx: Sexually ActiveOccupation: Office WorkerFamily HistoryFAMILY HISTORY:Mother 76 years oldFather 56 years old1 Brothers 1 LivingMother Hx: ASHDFather Hx: KARL Monge MD [address] [facility] [facility] [address], [place], [address], [place] [facility] 01/14/2023 11:52:44 3 text/html Patient Name: Ewelina MasononDate Of Service: Friday ( 07.15.2023 ): 1955 [...] diabetic management and include diet only. Last [facility]: controlled #5. Hx of obesity. Currently Class [...] offered to be evaluated and instructed by pet walker on weight loss diet.Medication List Reviewed and [...] At BedtimeADRs List Reviewed 07/15/2023Zoloft DiarrheaVaccination and Wgwigvhowpne9750-44 Covid PfizerSurgical HistoryBilateral Cataracts, Left TKAPreventative Testing Confirmed by Our Sicunrn5804/18/2023 LETTER KVPXEPKSCNRXA35/28/2022 MAMMOGRAM [facility]11/17/2019 UPPER JDKABYOQE80/04/2019 COLONOSCOPY (10 YEARS) ALBUMIN 4.3 G/DLSocial HistorySOCIAL HISTORY:Smoking Hx: 1.5 of cigarettes per day for 5 years. Drinking Hx: 1 Case beers per week, 5 Cups of tea per day, < 6 cans of soft drinks per day.Exercise: InfrequentlySexual Hx: Sexually ActiveOccupation: Office WorkerFamily HistoryFAMILY HISTORY:Mother 76 years oldFather 56 years old1 Brothers 0 LivingMother Hx: ASHDFather Hx: KARL Monge MD [address] [facility], [facility] [address], [place], [address], [place] [facility] 07/15/2023 11:59:38 4 text/html Patient Name: Ewelina [...] well. Currently is not followed by a centrifugal wax molder. Stage: CKD-3a. Albumin Stage: A1. There has [...] Adverse Drug Reactions ReviewedZoloft Diarrhea Vaccination and Pxurobmudjds5127-01 [employer] Surgical Kabwqxu6444-11 Bilateral Idnzwmaiv4433-31 Left TKA Preventative Testing Confirmed by Our Mqmnjor2009/30/2023 DEXA SCAN (NORMAL HIP - AP OSTEOPENIA)04/18/2023 HZLJMUICZNWIZ16/28/2022 MAMMOGRAM / HAIC11/17/2019 UPPER ITCOKYFAG49/04/2019 COLONOSCOPY (10 YEARS) ALBUMIN 4.3 G/DL N [...] Hx: ASHDFather Hx: KARL Monge MD [address] [facility], [facility] [address], [place], [address], [facility] [employer] 12/12/2023 12:31:07 4 text/html Patient Name: Ewelina [...] doing well. Currently is followed by a centrifugal wax molder. Stage: CKD-3b. Albumin Stage: A1. There has [...] offered to be evaluated and instructed by pet walker on weight loss diet. Active Medication ListSynthroid [...] Adverse Drug Reactions ReviewedZoloft Diarrhea Vaccination and Uqcnqltcfddu1008-77 [employer] Surgical Cfqyyfe8768-90 Bilateral Tkgafvyfs3390-07 Left TKA Preventative Testing( ) 09/30/2023 DEXA Scan (Normal Hip - AP Osteopenia)( ) 04/18/2023 Ophthalmology( ) 10/16/2022 Mammogram 10/16/2024( ) 07/16/2022 [facility]( ) 11/17/2019 Upper Endoscopy( ) 07/23/2019 Colonoscopy [...] Hx: ASHDFather Hx: KARL Monge MD [address] [facility], [facility] [address], [place], [address], [facility] 06/10/2024 12:17:05 5 text/html Patient Name: Ewelina Rolle LogsdonDate Of Service: November ( 12.09.2024 ): [...] #1. Surgical Clearance: The patient presents to [facility] for evaluation for preoperative clearance for surgery as requested by Dr. Patino. Is scheduled to have Rt. TKA at [facility] several weeks. The surgery is intermediate risk. [...] offered to be evaluated and instructed by pet walker on weight loss diet. Active Medication ListSynthroid [...] Reactions ReviewedZoloft Diarrhea Vaccination and Immunization(X) 2020- GetO2 Surgical Wkpojtp8501-48 Bilateral Jfpvaekaw4215-17 Left TKA Preventative Testing( ) 09/30/2023 DEXA Scan (Normal Hip - AP Osteopenia)( ) 04/18/2023 Ophthalmology(X) 10/16/2022 Mammogram 10/16/2024( ) 07/16/2022 HAI( ) 11/17/2019 Upper Endoscopy( ) 07/23/2019 Colonoscopy [...] Hx: ASHDFather Hx: KARL Monge MD [address] [facility] [address], [place], [address], [place] [facility] 12/09/2024 14:49:36 OBGyn Episode No OBEpisode recorded.
--- OUTSIDE RECORDS SUMMARY | 2025-03-01 01:17 | XMS_ITS | Encounter Summary ---
Author Organization [facility] Address [address] [facility] [place] [address] Phone Care Team Providers Care Implant Polisher Name Role Phone Unavailable Primary Care Provider Unavailabl e Reason for Visit * Reason Comments Med Refill Encounter Details Date Type Department Care Team (Late st Contact Info) Description 06/06/2023 [facility] [place] [facility] [address] [facility] [address] [place] [address] Wenceslao Solo MD [address] [facility] [address] [place] [address] Social History Tobacco Use Types [...] Description 03/29/2025 10:30 AM CDT Office [facility] [place] [facility] [address] [facility] [address] [place] [address] Wenceslao Solo MD [address] [facility] [address] [place] [address] documented as of this encounter Visit Diagnoses Not on filedocumented in this encounter
--- OUTSIDE RECORDS SUMMARY | 2025-03-01 01:17 | XMS_ITS | CONTINUITY OF CARE DOCUMENT ---
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 Gallo Long MD Hyperlipidemia active Ewelina Ricks RN AMI, SUBENDOCARDIAL;100% DX 03 ONLY active Homero Key MD FAMILY HISTORY OF HEART DISEASE active Rosemarie Key MD DIASTOLIC DYSFUNCTION active Gallo Long MD ISCHEMIA;NEG NUC 2010 completed - Gallo Long MD CHEST PAIN active Gallo Long MD SNORING; active Homero Key MD Family History Coronary Hear t Disease male < 55: active ? Gallo Long MD ENCOUNTERS Date Type Provider Location Encounter Diag nosis - In-person encounter Office Visit Gallo Long MD [facility] - In-person encounter Office Visit Gallo Long MD [facility] - In-person encounter Office Visit Gallo Long MD [facility] - In-person encounter Office Visit Gallo Long MD [facility] - In-person encounter Office Visit Gallo Long MD [facility] - In-person encounter Office Visit Gallo Long MD [facility] - In-person encounter Office Visit Gallo Long MD [facility] - In-person encounter Office Visit Gallo Long MD [facility] - In-person encounter Office Visit Gallo Long MD [facility] - In-person encounter Office Visit Gallo Long MD [facility] CADOBESITYDIASTOLIC DYSFUNCTIONISCHEMIA;NEG NUC 2010CHEST PAIN - In-person encounter Office Visit Gallo Long MD [facility] - In-person encounter Office Visit Gallo Long MD [facility] - In-person encounter Office Visit Gallo Long MD [facility] Family History Coronary Heart Disease male < 55: - In-person encounter Office Visit Gallo Long MD [facility] - In-person encounter Office Visit Homero Key MD [facility] CADHTN-07/28 ECHO EF 55 3 ECHO EF 60OBESITYCAROTID-12/26 CAROTID UNCHANGE 08/24 CAROTID NEGCHEST PAIN-07/28 NUC NEG 12/24 NUC NEGAMI, SUBENDOCARDIAL;100% DX 03 ONLYFAMILY HISTORY OF HEART DISEASEDIASTOLIC DYSFUNCTIONCHEST PAINSNORING; - In-person encounter Office Visit Gallo Long MD [facility] - In-person encounter Office Visit Gallo Long MD [facility] - In-person encounter Office Visit Gallo Long MD [facility] - In-person encounter Office Visit Gallo Long MD [facility] - In-person encounter Office Visit Gallo Long MD [facility] TOBACCO ABUSEHyperlipidemia - In-person encounter Office Visit Gallo Long MD [facility] - In-person encounter Office Visit Gallo Long MD [facility] VITAL SIGNS Date Observation Value Provider [...] Jesika Elle height E&M 64 [in_i] Jesika Elel Body Mass Index (Ratio) 36.52 kg/m2 Felice [...] Ewelina Lomas weight E&M 218.2 [lb_av] Usama baxetr blood pressure, diastolic 80 mm[Hg] Me mansfield [...] blood pressure, systolic 119 mm[Hg] Yulissa acosta oRly pulse rate 76 /min Stephanie Cristino sutton [...] LinkLogic 20-275 Normal platelet count 233 10*3/mm3 [facility] hematocrit, blood 39.0 % [facility] international normalized ratio (INR) 1.0 [facility] creatinine, serum 1.20 mg/dL [facility] potassium, serum 3.3 mmol/L [facility] sodium, serum 138 mmol/L [facility] hemoglobin A1C, blood, as % of [...] u[IU]/mL Susana Clements platelet count 237 10*3/mm3 [facility] hematocrit, blood 36.5 % [facility] lipoprotein, beta, serum, point, quantitative, calculated 77 mg/dL [facility] cholesterol, serum 178 mg/dL [facility] alanine aminotransferase (SGPT), serum 25 1/L [facility] aspartate aminotransferase (SGOT), serum 27 1/L [facility] creatinine, serum 0.98 mg/dL [facility] potassium, serum 4.3 mmol/L [facility] sodium, serum 140 mmol/L [facility] B-12, serum 250 pg/mL [facility] platelet count 197 10*3/uL [facility] red blood cell distribution width 14.6 % [facility] mean corpuscular hemoglobin concentration, RBC 33.6 g/dL [facility] mean corpuscular hemoglobin, RBC 34.0 pg [facility] mean corpuscular volume, RBC 101.2 fL [facility] hematocrit, blood 36.3 % [facility] hemoglobin, blood 12.2 g/dL [facility] erythrocyte (RBC) count 3.59 10*6/mm3 [facility] monocytes as percent of blood leukocytes 4.9 % [facility] lymphocytes as percent of blood leukocytes 44.5 % [facility] leukocyte count, blood 4.1 10*3/mm3 [facility] globulins, serum, total 2.3 g/dL [facility] Estimated Glomerular Filtration Rate (calc) 54 mL/min/{1 .73_m2} [facility] albumin/globulin ratio, serum 1.9 [facility] protein, total, serum 6.7 g/dL [facility] albumin, serum 4.4 g/dL [facility] bilirubin, serum, total 0.3 mg/dL [facility] alkaline phosphatase, serum 42 1/L [facility] alanine aminotransferase (SGPT), serum 24 1/L [facility] aspartate aminotransferase (SGOT), serum 21 1/L [facility] calcium, serum 9.2 mg/dL [facility] blood glucose, fasting 95 mg/dL [facility] creatinine, serum 1.06 mg/dL [facility] urea nitrogen, blood 13 mg/dL [facility] carbon dioxide, serum, total 21 mmol/L [facility] chloride, serum 112 mmol/L [facility] potassium, serum 4.2 mmol/L [facility] sodium, serum 141 mmol/L [facility] cholesterol/HDL ratio, serum 2.2 [facility] triglyceride, serum, fasting 62 mg/dL [facility] HDL cholesterol, serum 69 mg/dL [facility] LDL cholesterol, serum 74 mg/dL [facility] cholesterol, serum 155 mg/dL [facility] thyroid stimulating hormone, serum 3.62 u[IU]/mL [facility] thyroxine, serum, free 1.0 ng/dL [facility] cholesterol/HDL ratio, serum, percent 2.8 (calc) [...] LinkLog (5-26) blood glucose, random 98 mg/dL [facility] triglyceride, serum, fasting 91 mg/dL [facility] HDL cholesterol, serum 62 mg/dL [facility] LDL cholesterol, serum 97 mg/dL [facility] cholesterol, serum 177 mg/dL [facility] triglyceride, serum, fasting 195 mg/dL [facility] HDL cholesterol, serum 58 mg/dL [facility] LDL cholesterol, serum 113 mg/dL [facility] cholesterol, serum 210 mg/dL [facility] HISTORY OF MEDICATION USE Medication Status Instructions [...] Stephanie Dunham Lexapro 5 mg tablet active [facility] fenofibric acid (choline) 135 mg [...] Gallo Long MD seatbelt usage 100 % [facility] physical exercise, frequency, days per week no [facility] alcohol use, average drinks per day social basis only [facility] alcohol use no [facility] caffeine use, averag e drinks per day yes [facility] drug use none [facility] smoking/tobacco cess ation, patient education and counseling yes [facility] passive cigarette sm rubia exposure no [facility] chewing tobacco use no [facility] cigar use no Jesika Tuolumne number of years as a smoker less than 10 years [facility] smoking, date started 1998 [facility] smoking history, tot al pack/year 18 Jesika Elle smoking history, tot al pack/day 1 [facility] cigarette use yes [facility] smoking status Current every day smoker D [facility] social history E&M Marital Statu s: L faid with family/friends E thnicity: Smoking History: P [...] use no EwelinaJeannie Lomas cigar use no Usaam Rashaad adalgisa number of years as a [...] Homero Peterson chewing tobacco use no Homero emyer MD smoking status current every day smoker [...] RN FAMILY HISTORY Family Member Condition Father [place] male <55 Other Family Member Family History Coron kyaw Heart Disease male < 55: Father Family History of Co ronary Artery Disease: INSURANCE PROVIDERS Payer name Policy type / Coverage type [place] red republican ID BL[place] Medicare [id number] ADVANCE DIRECTIVES Name Date DISCUSSED - NO DECISION MADE TREATMENT PLAN Date Name Performer [id number],S, Gallo johnson MD [id number],S, Gallo johnson MD [id number],S, Gallo johnson MD [id number],B, Gallo johnson MD [id number],S, Gallo johnson MD [id number],S, Gallo johnson MD [id number],S, Gallo johnson MD [id number],S, Gallo johnson MD [id number],S, Gallo johnson MD [id number],S, Gallo johnson MD [id number],S, Gallo johnson MD [id number],S, Gallo johnson MD [id number],B, Gallo johnson MD Cardiology:Losing a little weigh [...] tab. daily Orders: S TR - Adenosine (49287) C omplete Echo (CPT-17465) Gallo Long MD follow up Gallo Long [...] ..... One tab. daily Simcor 1000-40 Mg Ns60f-psi (Niacin-simvastatin) ..... One tab. daily - dispense as written Cholestyramine Pack (Cholestyramine pack) ..... Once daily Gallo Long MD test results : B P today: 135/89 Prior BP: 132/81 (12/02/2013) C HOL: 160 (12/03/2013) LDL: 48 (12/03/2013) HDL: 99 (12/03/2013) T (12/03/2013) Her updated medication list for this problem includes: Trilipix 135 Mg Cpdr (Choline fenofibrate) ..... One tab. daily Simcor 1000-40 Mg Kb70x-pwd (Niacin-simvastatin) ..... One tab. daily - dispense [...] ..... One tab. daily Simcor 1000-40 Mg Vk54q-cdu (Niacin-simvastatin) ..... One tab. daily - dispense [...] ..... One tab. daily Simcor 1000-40 Mg Gc36s-lkm (Niacin-simvastatin) ..... One tab. daily - dispense [...] ..... One tab. daily Simcor 1000-40 Mg Oh84o-aee (Niacin-simvastatin) ..... One tab. daily - dispense as written Cholestyramine Pack (Cholestyramine pack) ..... Once daily BP today: 132/81 Prior BP: 119/74 (01/19/2013) C HOL: 178 (07/07/2012) LDL: 77 (07/07/2012) HDL: 69 (01/17/2011) T (01/17/2011) Orders: S TR - Adenosine (03983) C omplete Echo (CPT-27160) Homero Key MD clin desk not reviewed Homero dorantes MD follow up: T he following medications were removed from the medication list: Altace 10 Mg Caps (Ramipril) ..... One tab. daily Her updated medication list for this problem includes: Aspirin 325 Mg Tabs (Aspirin) ..... One tab. daily Trilipix 135 Mg Cpdr (Choline fenofibrate) ..... One tab. daily Simcor 1000-40 Mg Cv62r-hln (Niacin-simvastatin) ..... One tab. daily - dispense [...] (Aspirin) ..... One tab. daily Orders: EKG (CPT-97859) Carotid Duplex Scan: N o significant stenosis [...] ..... One tab. daily Simcor 1000-40 Mg Co55i-oss (Niacin-simvastatin) ..... One tab. daily - dispense [...] ..... One tab. daily Simcor 500-20 Mg Xz07v-ytx (Niacin-simvastatin) ..... 2 tablets daily BP today: 100/60 Prior BP: 106/74 (10/09/2010) C HOL: 155 (01/17/2011) LDL: 74 (01/17/2011) HDL: 69 (01/17/2011) T (01/17/2011) Gallo Long MD follow up: H er updated medication list for this problem includes: Altace 10 Mg Caps (Ramipril) ..... One tab. daily Aspirin 325 Mg Tabs (Aspirin) ..... One tab. daily Orders: Complete Echo (CPT-79848) BP today: 100/60 P rior BP: 106/74 [...] ..... One tab. daily Simcor 500-20 Mg Od03h-rtj (Niacin-simvastatin) ..... 2 tablets daily Orders: C omplete Echo (CPT-95335) BP today: 100/60 Prior BP: 106/74 (10/09/2010) [...] ..... One tab. daily Simcor 500-20 Mg Eu46a-bbp (Niacin-simvastatin) ..... 2 tablets daily BP today: [...] ilateral normal antegrade flow into both vertebrals. [facility] (01/10/2009) Echocardiogram: N ormal left ventricular systolic [...] ..... One tab. daily Simcor 500-20 Mg Pd79g-ubz (Niacin-simvastatin) ..... 2 tablets daily BP today: 106/74 Prior BP: 116/80 (08/14/2010) C HOL: 188 (10/04/2010) LDL: 103 MG/DL (CALC) (10/04/2010) HDL: 68 (10/04/2010) T (10/04/2010) Gallo Long MD follow up: H er updated medication list for this problem includes: Altace 10 Mg Caps (Ramipril) ..... One tab. daily Aspirin 325 Mg Tabs (Aspirin) ..... One tab. daily Orders: Complete Echo (CPT-38949) BP today: 116/80 P rior BP: 124/80 (08/15/2009) Labs Reviewed: C reat: 1.26 (08/23/2009) C hol: 198 (08/23/2009) HDL: 60 (08/23/2009) LDL: 114 (08/23/2009) T (08/23/2009) Gallo Long MD follow up: H er updated medication list for this problem includes: Altace 10 Mg Caps (Ramipril) ..... One tab. daily Aspirin 325 Mg Tabs (Aspirin) ..... One tab. daily Orders: EKG (CPT-44138) BP today: 116/80 Prior BP: 124/80 (08/15/2009) [...] ..... One tab. daily Simcor 1000-20 Mg Pz22j-ugc (Niacin-simvastatin) ..... Take 1 tab by mouth [...] ..... One tab. daily Simcor 1000-20 Mg Mf62x-pbf (Niacin-simvastatin) ..... Take 1 tab by mouth at bedtime Orders: S tress Test - Adenosine (99666) & #13;BP today: 116/80 Prior BP: 124/80 [...] One tab. daily Orders: L IPID PANEL (1830) C OMPREHENSIVE METABOLIC PANEL W/EGFR (75617) BP today: 124/80 Prior BP: 110/73 (02/07/2009) [...] (07/26/2008) Orders: S tress Test - Nuclear (58884) Gallo Long MD routine-letter fxd: H er updated medication list for this problem includes: Altace 10 Mg Caps (Ramipril) ..... Daily Aspirin 325 Mg Tabs (Aspirin) ..... One tab. daily BP today: 110/73 P rior BP: 120/77 (08/02/2008) Labs Reviewed: C hol: 210 (07/26/2008) HDL: 58 (07/26/2008) LDL: 113 (07/26/2008) T (07/26/2008) Orders: C omplete Echo (CPT-12931) Gallo Long MD routine-letter fxd: H er [...] inimal pulmonic regurgitation. (08/09/2008) Orders: E KG (CPT-72809) Gallo Long MD office visit: T he [...] (07/26/2008) Orders: S tress Test - Nuclear (96670) Gallo Long MD office visit: H er updated medication list for this problem includes: Altace 10 Mg Caps (Ramipril) ..... Daily Aspirin 325 Mg Tabs (Aspirin) ..... One tab. daily BP today: 120/77 Labs Reviewed: C hol: 210 (07/26/2008) HDL: 58 (07/26/2008) LDL: 113 (07/26/2008) T (07/26/2008) Orders: C omplete Echo (CPT-40081) Gallo Long MD office visit: C arotid [...] EKG Gallo Long MD complete d SNOMED-CT: 821602992 951093 Current Medications Documented Gallo Long MD completed EKG Gallo Long MD complete d SNOMED-CT: 937328348 924361 Current Medications Documented Gallo Long MD completed SNOMED-CT: 078146427 Smoking Cessation Counseling Gallo Long MD completed SNOMED-CT: 027936460 094236 Current Medications Documented Gallo Long MD completed EKG Gallo Long MD complete d EKG Homero Key MD complete d ePrescribe - Check t his box if eRx is used Gallo oLng MD completed EKG Gallo Long MD complete d EKG Gallo Long MD complete d EKG Gallo Long MD complete d
--- OUTSIDE RECORDS SUMMARY | 2025-03-01 01:17 | XMS_ITS | Encounter Summary ---
Author Organization [employer] [facility] Address [address] [facility] [place] [address] Phone Care Team Providers Care Clinical Trial Specialist Name Role Phone Unavailable Primary Care Provider Unavailabl e Reason for Visit * Reason Onset Date Comments Med Refill 08/17/2024 Encounter Details Date Type Department Care Team (Late st Contact Info) Description 08/17/2024 Refill [place] [facility] [address] [facility] [address] [place] [address] Preeti Jensen CMA [address] [facility] [address] [place] [address] Social History Tobacco Use Types [...] Description 03/29/2025 10:30 AM CDT Office Visit [place] [facility] [address] [facility] [address] [place] [address] Wenceslao Solo MD [address] [facility] [address] [place] [address] documented as of this encounter Visit Diagnoses Not on filedocumented in this encounter
--- NOTE | 2025-03-01 07:58 | WPDHPUPDATE1 ---
History and Physical Update Update Date/Time: 03/01/25 07:58 History and Physical has been reviewed, including an updated exam of the patient. There are NO changes in the patient's condition. Risks, benefits, and alternatives have been discussed and questions answered. Patient agrees to proceed with procedure.
[2025-03-01] MEDS: TRANEXAMIC ACID 1,000MG/ISO100 1,000 MG/100 ML BAG 200 MG IVPB (09:25)
[2025-03-01] MEDS: ACETAMINOPHEN 500 MG TABLET 1000 MG PO (09:25)
[2025-03-01] MEDS: TRANEXAMIC ACID 1,000 MG/10 ML AMPUL 1000 MG IV PUSH (09:34)
[2025-03-01 10:01] LABS: Anion Gap 9 mmol/L (4-12); Blood Urea Nitrogen 24 mg/dL (7-17); Calcium 9.4 mg/dL (8.4-10.2); Carbon Dioxide 26 mmol/L (22-30); Chloride 102 mmol/L (98-107); Estimated CRCL calculation 37 ml/min; Estimated Glomerular Filt Rate 38; Glucose 100 mg/dL (65-110); Potassium 4.6 mmol/L (3.4-5.0); Sodium 137 mmol/L (137-145)
--- NOTE | 2025-03-01 10:48 | P.PNAN_ITS ---
Anes - Eval Pre Procedure Procedure: Operation Date: 03/01/25 11:00 Proposed Procedures p Right Custom Total Knee Arthroplasty - Kris Patino MD Date/Time: 03/01/25 10:48 Pre Op Diagnosis: Prim O A Rt Knee Patient Data Age: 69 Gender: F Height: 1.6 m Weight: 86 kg Last Vital Signs Temp 97.3 F L 03/01/25 09:00 Pulse 86 03/01/25 09:00 Resp 16 03/01/25 09:00 BP 121/59 L 03/01/25 09:00 Pulse Ox 97 03/01/25 09:00 O2 Del Method Room Air 03/01/25 09:00 Allergies Allergy/AdvReac Type Severity Reaction Status Date / Time sertraline (From Zoloft) AdvReac Unknown Diarrhea Verified 03/01/25 10:08 Home Medications ?Medication ?Instructions ?Recorded ?Confirmed ?Type atorvastatin 40 mg tablet (Lipitor) 40 mg PO DAILY 04/21/20 03/01/25 History lorazepam 2 mg tablet (Ativan) 2 mg PO TID 04/21/20 03/01/25 History fenofibric acid (choline) 135 mg 135 mg PO DAILY 08/29/21 03/01/25 History capsule,delayed release (Trilipix) empagliflozin 10 mg tablet 10 mg PO DAILY 08/13/24 03/01/25 History (Jardiance) famotidine 20 mg tablet (Pepcid AC) 20 mg PO DAILY 08/13/24 03/01/25 History levothyroxine 50 mcg tablet 50 mcg PO DAILY 08/13/24 03/01/25 History (Synthroid) lisinopril 20 mg tablet 20 mg PO DAILY 08/13/24 03/01/25 History aripiprazole 5 mg tablet 5 mg PO HS 02/11/25 03/01/25 History aspirin 325 mg tablet 325 mg PO DAILY 02/11/25 03/01/25 History cholecalciferol (vitamin D3) 50 2,000 unit PO ONCE 02/11/25 03/01/25 History mcg (2,000 unit) capsule cyanocobalamin (vitamin B-12) 1,000 mcg PO DAILY 02/11/25 03/01/25 History 1,000 mcg capsule escitalopram oxalate 20 mg tablet 20 mg PO QAM 02/11/25 03/01/25 History tramadol 50 mg tablet 50 mg PO Q8H PRN pain 02/11/25 02/11/25 History trazodone 100 mg tablet 200 mg PO QHS 02/11/25 03/01/25 History venlafaxine 150 mg 150 mg PO QAM 02/11/25 03/01/25 History capsule,extended release 24 hr (Effexor XR) oxycodone-acetaminophen 5 mg-325 1 - 2 tablet PO Q4-6H PRN pain 7 03/01/25 Rx mg tablet days #30 tabs prednisone 5 mg tablet 5 mg PO DAILY 3 weeks #21 tabs 03/01/25 Rx Laboratory Tests 03/01/25 09:11 Sodium 137 mmol/L (137-145) Potassium 4.6 mmol/L (3.4-5.0) Chloride 102 mmol/L (98-107) Carbon Dioxide 26 mmol/L (22-30) Anion Gap 9 mmol/L (4-12) BUN 24 H mg/dL (7-17) Creatinine 1.37 H mg/dL (0.7-1.0) Estim Creat Clear Calc 37 ml/min Estimated GFR 38 L (59 - ) Glucose 100 mg/dL (65-110) Calcium 9.4 mg/dL (8.4-10.2) Blood Type A Positive Antibody Screen Pending Patient hx anesthesia problems: none Family hx anesthesia problems: none Results Review: All pre-operative results and documents have been reviewed as part of the pre- operative evaluation. [facility] Past Medical History Medical History Dysphagia Pruritic disorder Chronic kidney disease Coronary atherosclerosis Pure hypercholesterolemia Vitamin D deficiency Hypothyroid GERD (gastroesophageal reflux disease) Hypertension Hyperlipidemia Depression Anxiety Surgical History Surgical History History of cataract extraction (~05/2023) [place] [facility] History of total left knee replacement (~2016) Dr. Coats Family History Family History Father Heart disease Acute myocardial infarction Mother Heart disease Social History Social History Smoking status: Former smoker Tobacco type: cigarettes Smoking end date: 12/20/19 Alcohol intake: former Alcohol use details: cleaned for 7 years Substance use: current Substance use type: marijuana Do You Feel Safe in your Home?: Yes Lack of Transportation: No Lack of Food: Never True Current Housing: I Have Housing Concerned About Future Housing: No Difficulty Paying Gas/Electric Bills: No Difficulty Paying for Meds: No Currently Unemployed: No Education: High School Diploma/GED Difficulty w/ Childcare or Family Care: No Living arrangements: with family Additional living arrangements comments: [facility] Occupation/Education: other Additional occupation/education comments: Disable Gender identity (if verbalized by the patient): Female Spiritual care concerns: No Exam Day of Procedure 03/01/25 10:48 Patient weight: obese
[2025-03-01] MEDS: ceFAZolin 2 GM/D5W 50 ML 2 GM/50 ML BAG IVPB ×2 (10:56→17:15)
--- NOTE | 2025-03-01 11:28 | P.PNAN_ITS ---
Anes - Eval Final PreProcedure Day of Procedure 03/01/25 11:28 Patient weight: obese Heart: regular rate and rhythm Lungs: wheezes Neurological: alert and oriented Last oral intake: >/= 8 hours ASA classification: III Emergent: no Anesthetic plan: proceed Anesthesia type and monitoring: general LMA and standard monitoring Results Review: All pre-operative results and documents have been reviewed as part of the pre- operative evaluation. Informed Consent: The patient's anesthetic plan and its attendant risks and benefits were discussed with the patient/family/POA. Questions were solicited and answers provided to the satisfaction of the patient/family/POA.
[2025-03-01] MEDS: SODIUM CHLORIDE 0.9% IV 37.7 ML, MORPHINE SULFATE INJ (*CRX) 2 MG, ROPivacaine HCL 1% 2... INFILTRATE (11:31)
[2025-03-01] MEDS: LACTATED RINGERS 1,000 ML 30 ML IV CONT (12:57)
--- NOTE | 2025-03-01 16:14 | W.PM.PROC2 ---
Procedure Note - Detailed Date of Procedure 03/01/25 Pre-op Diagnosis Prim O A Rt Knee Post-op Diagnosis Same Procedure Performed Total knee arthroplasty, right custom Surgeon Kris aPtino MD [employer] Caitlyn Krishnamurthy PA-C Anesthesia General Findings Satisfactory bone quality. Custom implant. Lateral tissue attenuation. 7C asymmetric poly inserts. Description of Procedure Preoperative antibiotics were given. The limb was prepped and draped in the usual sterile fashion with a well-padded tourniquet high on the thigh. The limb was exsanguinated and the tourniquet inflated to 300 mmHg. A longitudinal incision was created just medial to the patella. A trivector approach to the knee was performed. Arthrotomy was taken down through the joint capsule. No significant releases were initially taken. The femur was exposed and the F1 jig was applied. The coring tool was used to remove the cartilage for the F2 jig to sit flush with the bone. The jig was pinned and the distal cut carefully taken. Caliper measurements confirmed appropriate bony resections according to the preoperative templated plan. The F4 cutting jig for the femur was applied, at the standard rotation. The AP and anterior chamfer cuts were taken. The F5 jig was applied and the posterior chamfer cuts were taken. The tibia was prepared using the T1 jig, after removing cartilage for the jig contact points. Proper alignment was checked with the alignment kate. The tibia was cut using the T1u guide. Gap balancing was performed. Gap measurements were taken and the knee was trialed. Excellent alignment and soft tissue balancing was confirmed. The posterior cruciate ligament was recessed along the proximal tibia. The patella was cut for resurfacing. Three lug holes were drilled. Meniscal remnants were removed. The trial components were assembled. Excellent range of motion and proper soft tissue balancing were confirmed throughout the full range of motion. Patellar tracking was excellent. The knee was copiously irrigated periodically throughout the procedure. The real implants were cemented into position. Excess cement was carefully removed. The wound was closed in layers with interrupted #1 Vicryl suture, 2-0 strata fix suture, 0 strata fix suture, 2-0 strata fix suture. Steri-Strips placed on the skin with the knee flexed. Sterile bulky dressing applied. The patient was brought to the recovery room in stable condition. There were no complications. Physician personnel assistant, Caitlyn Krishnamurthy PA-C, required for surgery; including patient positioning, draping, tissue retraction, maintaining instrument position, cement removal, wound closure, and dressing placement. Implants [employer] Custom total knee arthroplasty. Cemented. Cruciate retaining. 7C insert. 32 mm oval patella. Estimated Blood Loss 50 Drains No Complications No immediate complications Condition Stable Disposition PACU [facility] Billing Surgery - Charge Forward: Surgery Billing
--- NOTE | 2025-03-01 16:41 | ADMGEN ---
This patient, Ewelina Condon, was admitted to [facility] Surg Room 311-01. Patient/family oriented to hospital policies and general routines including ID bracelet, bed and alarms, visiting hours, pain management, procedures, bathroom and other care routines, personal items, smoking policy, room service/diet, and visiting hours. Information on how to activate the Rapid Response Team has been discussed. Patient/Family are encouraged to report perceived risks to care and to ask questions if they do not understand what they are told or what they should do.
[2025-03-01] MEDS: ACETAMINOPHEN 325 MG TABLET 650 MG PO (17:00)
[2025-03-01] MEDS: oxyCODONE/ACETAMINOPHEN (*CRX) 10-325 MG TABLET 1 TAB PO (17:01)
[2025-03-01] MEDS: predniSONE 5 MG TABLET PO (17:01)
[2025-03-01] MEDS: SENNA/DOCUSATE SODIUM TABLET 2 TAB PO (17:01)
[2025-03-01] MEDS: traZODone HCL 50 MG TABLET 200 MG PO (20:49)
[2025-03-01] MEDS: CYCLOBENZAPRINE HCL 10 MG TABLET PO (20:49)
[2025-03-01] MEDS: ARIPiprazole 5 MG TABLET PO (20:49)
[2025-03-01] MEDS: oxyCODONE/ACETAMINOPHEN (*CRX) 5-325 MG TABLET 1 TABLET PO (20:50)
[2025-03-02] MEDS: ACETAMINOPHEN 325 MG TABLET 650 MG PO ×3 (00:05→13:08)
[2025-03-02] MEDS: diphenhydrAMINE HCl INJ 50 MG/ML VIAL 25 MG IV PUSH (00:05)
[2025-03-02] MEDS: oxyCODONE/ACETAMINOPHEN (*CRX) 10-325 MG TABLET 1 TAB PO ×2 (00:05→08:59)
[2025-03-02 00:15] VITALS: BP 136/70; PULSE 69; RESP 16; TEMP 35.9; O2SAT 100
[2025-03-02] MEDS: ceFAZolin 2 GM/D5W 50 ML 2 GM/50 ML BAG IVPB (02:02)
[2025-03-02 04:15] VITALS: BP 126/59; PULSE 66; RESP 17; TEMP 35.7; O2SAT 99
[2025-03-02] MEDS: LEVOTHYROXINE SODIUM 50 MCG TABLET PO (05:18)
[2025-03-02 05:42] LABS: Basophils Percent Auto 0.2 % (0.2-1.2); Eosinophils Absolute Auto 0.1 K/mm3 (0-0.3); Eosinophils Percent Auto 0.6 % (0-4.4); Hematocrit 36.8 % (37.0-47.0); Immature Granulocyte Absolute 0.05 K/mm3 (0.00-0.031); Immature Granulocyte Percent A 0.6 % (0-0.5); Lymphocytes Absolute Auto 1.07 K/mm3 (0.9-3.2); Lymphocytes Percent Auto 12.4 % (18.3-44.2); Mean Corpuscular HGB Conc 32.6 g/dl (32-36); Mean Corpuscular Hemoglobin 32.9 pg (26-34); Mean Corpuscular Volume 100.8 fl (80-100); Mean Platelet Volume 9.7 fl (7.4-10.4); Monocytes Absolute Auto 0.6 K/mm3 (0.1-0.6); Monocytes Percent Auto 7.3 % (2.6-8.5); Neutrophils Absolute Auto 6.8 K/mm3 (1.3-6.7); Neutrophils Percent Auto 78.9 % (45.5-73.1); Platelet Count Result 232 k/mm3 (150-375); Red Blood Count 3.65 M/mm3 (4.2-5.4); Red Cell Distribution Width 12.5 % (11.5-14.5); White Blood Count 8.7 K/mm3 (4.5-10.0)
[2025-03-02 05:56] LABS: Anion Gap 7 mmol/L (4-12); Blood Urea Nitrogen 26 mg/dL (7-17); Calcium 8.9 mg/dL (8.4-10.2); Carbon Dioxide 23 mmol/L (22-30); Chloride 104 mmol/L (98-107); Estimated CRCL calculation 31 ml/min; Estimated Glomerular Filt Rate 31; Glucose 115 mg/dL (65-110); Potassium 4.2 mmol/L (3.4-5.0); Sodium 134 mmol/L (137-145)
[2025-03-02 08:15] VITALS: BP 146/80; PULSE 75; RESP 18; TEMP 36.8; O2SAT 100
[2025-03-02] MEDS: polyethylene glycoL 3350 17 GM POWD.PACK PO (08:48)
[2025-03-02] MEDS: ASPIRIN 325 MG TABLET PO (08:49)
[2025-03-02] MEDS: lisinopriL 20 MG TABLET PO (08:49)
[2025-03-02] MEDS: SENNA/DOCUSATE SODIUM TABLET 2 TAB PO (08:49)
[2025-03-02] MEDS: FAMOTIDINE 20 MG TABLET PO (09:00)
[2025-03-02] MEDS: ESCITALOPRAM OXALATE 10 MG TABLET 20 MG PO (09:00)
[2025-03-02] MEDS: FENOFIBRATE NANOCRYSTALLIZED 145 MG TABLET PO (09:00)
[2025-03-02] MEDS: VENLAFAXINE HCL XR 75 MG CAP.ER.24H 150 MG PO (09:03)
[2025-03-02] MEDS: ATORVASTATIN 40 MG TABLET PO (09:03)
[2025-03-02] MEDS: EMPAGLIFLOZIN 10 MG TABLET PO (09:06)
--- NOTE | 2025-03-02 10:48 | WPDANESPN ---
Anes - Prog Note Post-Op Date/Time: 03/02/25 10:48 Vital Signs: Last Vital Signs Temp 35.7 C L 03/02/25 04:15 Pulse 66 03/02/25 04:15 Resp 17 03/02/25 04:15 BP 126/59 L 03/02/25 04:15 Pulse Ox 99 03/02/25 04:15 O2 Del Method Room Air 03/02/25 08:15 O2 Flow Rate 8 03/01/25 13:25 Pain Score (VAS): 0 I/O: Intake & Output 03/01/25 03/02/25 03/02/25 23:59 07:59 15:59 Intake Total 290 Balance 290 Laboratory Tests 03/02/25 05:07 03/02/25 05:07 03/01/25 03/02/25 09:11 05:07 WBC 8.7 RBC 3.65 L Hgb 12.0 Hct 36.8 L MCV 100.8 H MCH 32.9 MCHC 32.6 RDW 12.5 Plt Count 232 MPV 9.7 Immature Gran % (Auto) 0.6 H Neut % (Auto) 78.9 H Lymph % (Auto) 12.4 L [place] % (Auto) 7.3 Eos % (Auto) 0.6 Baso % (Auto) 0.2 Lymph # (Auto) 1.07 [place] # (Auto) 0.6 Eos # (Auto) 0.1 Baso # (Auto) 0.0 Abs Immat Gran (auto) 0.05 H Absolute Neuts (auto) 6.8 H Absolute Nucleated RBC 0.000 Nucleated RBC % 0.0 Sodium 134 L Potassium 4.2 Chloride 104 Carbon Dioxide 23 Anion Gap 7 BUN 26 H Creatinine 1.64 H Estim Creat Clear Calc 31 Estimated GFR 31 L Glucose 115 H Calcium 8.9 Antibody Screen Negative Patient Feedback: Patient satisfied with anesthetic care.
[2025-03-02] MEDS: oxyCODONE/ACETAMINOPHEN (*CRX) 5-325 MG TABLET 1 TABLET PO (13:07)
== END 2025-03-02 13:15 | disposition home or self-care (01) ==
LOC: ANHSURGERY 08:51 → ANH3MEDSUR 15:22
PROVIDERS: Anesthesiology; Physician Assistant Surgical; PCP Internal Medicine; Visit Provider Orthopaedic Surgery
PROC: (CPT 27447; principal; 2025-03-01 11:00)
DX: M17.11 Unilateral primary osteoarthritis, right knee (principal); E66.9 Obesity, unspecified; Z68.33 Body mass index [BMI] 33.0-33.9, adult; Z87.891 Personal history of nicotine dependence; F12.90 Cannabis use, unspecified, uncomplicated
CPT/HCPCS: 27447; 36415; 73560; 80048; 85025; 86850; 86900; 86901; 97110; 97161; 97165; A9270; C1713; C1776; J0171; J0690; J1100; J1171; J1200; J1885; J2003; J2250; J2270; J2405; J2704; J2795; J3010; J7120; J7512

== ENCOUNTER 2025-03-23 12:34 | Emergency (ER) | payer MEDICARE, SELFPAY ==
--- OUTSIDE RECORDS SUMMARY | 2025-03-23 12:37 | XMS_ITS | Clinical Summary ---
Author Organization [facility] Facility Address [address] [place] [address], [place] [address] Care Team Providers Care Hot Strip Mill Inspector Name Role Phone Unavailable Primary Care Provider [...] tablet 5 Active lisinopril 20 MG tablet Take 1 tablet (20 mg total) by mouth 1 (one) time each day 90 tablet 5 02/24/20 25 Discontinu ed(Reorder (does not appear on AVS)) Active Problems Problem Noted Date Diagnosed Date Prediabetes 12/14/2024 Osteoarthritis 08/17/2024 Gastroesophageal reflux disease 11/12/2022 Chronic fatigue syndrome 07/19/2021 Stage 3a chronic kidney disease 07/19/2021 Coronary arteriosclerosis 07/19/2021 Dysphagia 07/19/2021 Dysthymia 07/19/2021 Essential hypertension 07/19/2021 Noninfectious gastroenteritis 07/19/2021 Mixed hyperlipidemia 07/19/2021 Vitamin D deficiency 07/19/2021 Obesity 02/01/2008 Encounters Date Type Department Care Team Description 03/07/2025 Documentation Only [facility] [address] [phone] Wenceslao Solo MD 02/23/[address] [phone] Liliana Nielson CMA 02/23/2025 Office Communication [facility] [address] [phone] Wenceslao Solo MD 02/21/[address] [phone] Liliana Nielson CMA from Last 3 Months Social History Tobacco [...] Comments Blood Pressure 120/80 12/14/2024 10:54 AM CRAFT MANAGER Pulse 68 12/14/2024 10:54 AM CRAFT MANAGER Temperature 36.1 C (97 F) 12/14/2024 10:54 AM CRAFT MANAGER Respiratory Rate 18 12/14/2024 10:54 AM CRAFT MANAGER Oxygen Saturation 97% 12/14/2024 10:54 AM CRAFT MANAGER Inhaled Oxygen Concentration - - Weight 91 kg (200 lb 11.2 oz) 12/14/2024 10:54 A M CRAFT MANAGER Height 160 cm (5' 3) 05/18/2024 10:27 AM CDT Body Mass Index 35.55 05/18/2024 10:27 AM CDT Plan of Treatment Upcoming Encounters Date Type Department Care Team (Late st Contact Info) Description 03/29/2025 10:30 AM CDT Office Visit [facility], [facility] [address] [facility] [address] [place] [address] Wenceslao Solo MD [address] [phone] Health Maintenance Due Date Last Done Comments Breast Cancer Screening 1955 Pneumococcal Vaccine: 50+ Ye ars (1 of 2 - PCV) 1976 Colorectal Cancer Screening: Annual FOBT 2006 Colorectal Cancer Screening: Colonoscopy 2006 Colorectal Cancer Screening: Sigmoidoscopy 2006 Influenza Vaccine (Season Ended) 2025 Hepatitis B Vaccine Aged Out No longe r eligible based on patient's age to complete this topic Insurance Medicare [facility]
--- OUTSIDE RECORDS SUMMARY | 2025-03-23 12:37 | XMS_ITS | Encounter Summary ---
Author Organization [facility] [employer] [facility] Address [address] [facility] [place] [address] Phone Care Team Providers Care Biscuit Machine Operator Name Role Phone Unavailable Primary Care Provider Unavailabl e Reason for Visit * Reason Comments Med Refill Encounter Details Date Type Department Care Team (Late st Contact Info) Description 03/26/2023 Refill [place] [facility] [address] [facility] [address] [place] [address] Wenceslao Solo MD [address] [facility] [address] [place] [address] Social History Tobacco Use Types [...] Description 03/29/2025 10:30 AM CDT Office Visit [place] [facility] [address] [facility] [address] [place] [address] Wenceslao Solo MD [address] [facility] [address] [place] [address] documented as of this encounter Visit Diagnoses Not on filedocumented in this encounter
--- OUTSIDE RECORDS SUMMARY | 2025-03-23 12:38 | XMS_ITS | Encounter Summary ---
Author Organization [employer] [facility] Address [address] [facility] [place] [address] Phone Care Team Providers Care Building Guard Deputy Sheriff Name Role Phone Unavailable Primary Care Provider Unavailabl e Reason for Visit * Reason Onset Date Comments Med Refill 08/17/2024 Encounter Details Date Type Department Care Team (Late st Contact Info) Description 08/17/2024 Refill [place] [employer] [facility] [address] [facility] [address] [place] [address] Preeti Jensen CMA [address] [facility] 1 [place] [address] Social History Tobacco Use Types [...] Description 03/29/2025 10:30 AM CDT Office Visit [place] [employer] [facility] [address] [facility] [address] [place] [address] Wenceslao Solo MD [address] [facility] [place] [address] documented as of this encounter Visit Diagnoses Not on filedocumented in this encounter
--- OUTSIDE RECORDS SUMMARY | 2025-03-23 12:38 | XMS_ITS | Encounter Summary ---
Author Organization [facility] [employer] [facility] Address [address] [facility] [place] [address] Phone Care Team Providers Care Electronic Sensing Equipment Assembler Name Role Phone Unavailable Primary Care Provider Unavailabl e Reason for Visit * Reason Comments Med Refill Encounter Details Date Type Department Care Team (Late st Contact Info) Description 06/06/2023 Refill [place] [facility] [address] [facility] [address] [place] [address] Wenceslao Solo MD [address] [facility] [place] [address] Social History Tobacco Use Types [...] Description 03/29/2025 10:30 AM CDT Office Visit [place] [employer] [facility] [address] [facility] [address] [place] [address] Wenceslao Solo MD [address] [facility] [address] [place] [address] documented as of this encounter Visit Diagnoses Not on filedocumented in this encounter
--- OUTSIDE RECORDS SUMMARY | 2025-03-23 12:38 | XMS_ITS | Data Portability ---
Author Organization [place] [facility] [employer], Main Office Address [address] [place] [address] Care Team Providers Care Splitting Machine Operator Name Role Phone ARCHIE MONGE Primary Care Provider [phone] MONGE ARCHIE Referring Provider Assessment No assessment recorded. Plan of Treatment Reminders Order Date Submit Date Provider Last Modified By Organization Details Last Modified Time Details Appointments None recorded. Lab lipid panel, serum 025 025 [email or web address] [facility], [address] [place], [address], 5 09:43:20 CMP, serum or plasma 025 025 [facility], [address] [place], [address], 5 09:43:20 CBC w/ auto diff 025 025 [facility], [address] [place], [address], 5 09:43:20 TSH, serum or plasma 025 025 [email or web address] [facility], [address] [place], [address], 5 09:43:21 T4, free, serum 025 025 [facility], [address] [place], [address], 5 09:43:21 lipid panel, serum 024 024 [facility], [address] [place], [address], 4 17:08:00 CMP, serum or plasma 024 024 [id number] [facility], [address] [place], [address], 4 17:08:00 CBC w/ auto diff 024 [email or web address] [facility], [address] [place], [address], 4 17:08:00 TSH, serum or plasma 024 [id number] [facility], [address] [place], [address], 4 17:07:59 T4, free, serum 024 [id number] [facility], [address] [place], [address], 4 17:08:00 PTH (parathyr oid hormone), intact, serum or plasma 024 024 [email or web address] [facility], [address] [place], [address], 4 17:44:27 phosphoru s, serum or plasma 024 024 [facility], [address] [place], [address], 4 17:44:27 vitamin D, 25-hydrox y, total, serum 024 024 [email or web address] [facility], [address] [place], [address], 4 17:44:27 uric acid, serum or plasma 024 024 [id number] [facility], [address] [place], [address], 4 17:44:27 CBC w/ auto diff 024 024 [id number] [facility], [address] [place], [address], 4 17:44:26 lipid panel, serum 024 024 [id number] [facility], [address] [place], [address], 4 17:44:26 CMP, serum or plasma 024 024 [id number] [facility], [address] [place], [address], 4 17:44:27 TSH, serum or plasma 024 024 [facility], [address] [place], [address], 4 17:44:26 T4, free, serum 024 024 [facility], [address] [place], [address], 4 17:44:26 HbA1c (hemoglob in A1c), blood 023 023 [facility], [address] [place], [address], 3 09:37:15 CBC w/ auto diff 023 023 [facility], [address] [place], [address], 3 09:37:14 lipid panel, serum 023 023 [email or web address] [facility], [address] [place], [address], 3 09:37:15 CMP, serum or plasma 023 023 [email or web address] [facility], [address] [place], [address], 3 09:37:15 TSH, serum or plasma 023 023 [facility], [address] [place], [address], 3 09:37:14 T4, free, serum 023 023 [email or web address] [facility], [address] [place], [address], 3 09:37:14 vitamin D, 25-hydrox y, total, serum 023 023 [id number] [facility], [address] [place], [address], 3 10:03:09 lipid panel, serum 023 023 [id number] [facility], [address] [place], [address], 3 10:03:08 CMP, serum or plasma 023 023 [email or web address] [facility], [address] [place], [address], 3 10:03:08 TSH, serum or plasma 023 023 [id number] [facility], [address] [place], [address], 3 10:03:08 T4, free, serum 023 023 [id number] [facility], [address] [place], [address], 3 10:03:08 CBC w/ auto diff 023 023 [email or web address] [facility], [address] [place], [address], 3 10:03:08 Referral None recorded. Procedures None recorded. Surgeries None recorded. Imaging None recorded. Medication Orders None recorded. Patient TargetsNo targets recorded. Patient Instructions Encounter Date Encounter Id Patient Instructions Last Modified By Organization Details Last Modified Time 01/14/2023 [id number] Follow-up for coronary artery disease -hypertension-hype rlipidemia-hypothy roidism- depressive disorder. Plan to check blood work consisting of CBC, CMP, lipid, thyroid and vitamin-D level. Check a bone density scan. Has up-to-date on mammography and colonoscopy. Follow-up in six months DEXA scan [email or web address] Not available 01/14/2023 11:52:26 07/15/2023 [id number] Coronary artery disease -hypertension-hypo thyroidism -impaired fasting [...] with voice recognition software. Occasional wrong-word or rdrcg-h-xhxv substitutions may have occurred due to the inherent limitations of voice recognition software. Read the chart carefully and recognize, using context, where substitutions have occurred. [email or web address] Not available 07/15/2023 11:58:58 12/12/2023 [id number] Follow-up krishna ry artery disease -hypertension-hypo thyroidism -hyperlipidemia-ch ronic kidney disease stage IIIA. All clinically stable. Check blood work consisting of CBC, CMP, lipid, thyroid, PTH, phosphorus. Recheck back in six months. Portions of the record may have been created with voice recognition software. Occasional wrong-word or onxkv-d-eawp substitutions may have occurred due to the inherent limitations of voice recognition software. Read the chart carefully and recognize, using context, where substitutions have occurred. [email or web address] Not available 12/12/2023 12:30:43 06/10/2024 [id number] Follow-up krishna ry artery disease, hypertension, hypothyroidism, hyperlipidemia and chronic kidney disease. All clinically stable. Will check a CMP lipid and thyroid panel. Continue on current Rx follow-up in six months. Next Appointment: 6 Months Approximate Date: 12/07/2024 Portions of the record may have been created with voice recognition software. Occasional wrong-word or zpfkz-s-zoeh substitutions may have occurred due to the inherent limitations of voice recognition software. Read the chart carefully and recognize, using context, where substitutions have occurred. [email or web address] [id number] Not available 06/10/2024 12:15:56 Reason for Referral None Reported. Results Created Date Observation Date Name Description Value Unit Range Abnormal Flag Note LastModifiedBy Organization Detail LastModifiedTime 10/02/2009/30/2023 DEXA No observ ation record ed. [address] [facility] [address], [place], [address], 10/02/2023 10:26:37 08/25/20 24 08/25/2024 XR, knee No observ ation record ed. [place] [address], [place], [address], 08/25/2024 14:13:54 12/13/19 25 12/13/2024 CT, knee, w/o contr ast No observ ation record ed. [address], [place], [address], 12/14/2024 08:24:18 12/23/19 25 12/22/2024 MAMMO , scree cam, bilat eral No observ ation record ed. [address] [facility] [address], [place], [address], 12/22/2024 13:53:44 05/13/20 25 03/01/2025 XR, knee No observ ation record ed. [address] [facility] [address], [place], [address], 03/01/2025 16:42:37 Result Notes None recorded. Problems Name Problem SNOMED Code Status Onset Date Resolution Date Notes Provider Name and Address Organization Details Recorded Time Pes anserinus bursitis of left knee 58860231412 38429 Active 2019 Not Available [facility] 3 07:31:47 History of left total knee replaceme nt 68297003398 Active 2019 Not Available [facility] 3 07:31:47 Acute sinusitis 82458822 Active 2021 Not Available [facility] 3 07:31:47 Radiother apy follow-up 018727088 Active Not Available [facility] 3 07:31:47 Gastroeso phageal reflux disease 094926095 Active 2019 Not Available [facility] 3 07:31:47 Microscop ic colitis 183884067 Active 2018 Not Available [facility] 3 07:31:47 Pure hyperchol esterolem ia 496476325 Active Not Available [facility] 3 07:31:47 Pruritic disorder 520655518 Active Not Available [facility] 3 07:31:47 Knee pain Active Not Available [facility] 3 07:31:47 Vitamin D deficienc y 60224757 Active 2021 Not Available [facility] 3 07:31:48 Depressiv e disorder 12528098 Active Not Available [facility] 3 07:31:48 Eosinophi lic gastroent eritis 858247193 Completed Not Available [facility] 3 07:31:48 Impaired fasting glycemia 849691200 Active 2016 Not Available [facility] 3 07:31:48 Osteoarth ritis 295189049 Active Not Available [facility] 3 07:31:48 Dysphagia 28457475 Active Not Available [employer] 3 07:31:48 Hypothyro idism 39263575 Active 2017 Not Available [facility] 3 07:31:48 Chronic kidney disease stage 3 853892665 Active Not Available [facility] 3 07:31:48 Coronary arteriosc lerosis 18266358 Active Not Available [facility] 3 07:31:48 Hyperlipi demia 97435320 Active 2017 Not Available [facility] 3 07:31:49 Essential hypertens ion 06909861 Active Not Available [facility] 3 07:31:49 Diarrhea 78104438 Active Not Available [facility] 3 07:31:49 Derangeme nt of knee 22463481 Active Not Available [facility] 3 07:31:49 Fatigue 15215004 Active Not Available [facility] 3 07:31:49 Senile osteoporo sis 54851529 Active 2022 Michelle ferro, [employer] [facility] [employer] 3 12:02:01 Obese class I 88166265254 4107 Active 2022 Archie Monge MD [address], [place], [address] , [employer] [facility] [employer] 3 11:55:48 Acute bronchiti s 90317764 Active 2022 Archie Monge MD [address], [place], [address] , [employer] [facility] [employer] [facility] 3 12:46:15 Bee sting 358478777 Active 2023 Archie Monge MD [address], [place], [address] , [employer] [facility] 4 17:24:41 Pain of right knee joint 32401625142 4100 Active 2023 GUILLERMO Lamb, [employer] [facility] 4 16:09:35 Notes:Some problems listed i n Documents: #[id number], #[id number] could not be added to this patient's chart. Please review these documents and add these problems to the patient's chart manually as needed. Problem Notes None recorded. Medical Equipment None Reported. Allergies Allergen ID Allergen Name Allergen Category Reaction Reaction Severity Criticality Documentation Date Start Date Code Code System Note Provider Name and Address Organization Details Recorded Time 25178 Zoloft medicatio n diarrhea Not available Not available 12/18/2022 72943 RxNorm Not Available [facility] 3 07:37:22 Medications Name Sig Start [...] administ ered by the provider 11/09 completed [facility]: 0003-049 4-20 Not Available Not Available Not Available lorazepam [...] completed Not Available Not Available Not Available [place] 7.5 mg-325 mg tablet 01/07 completed Not [...] administ ered by the provider 11/09 completed [facility]: [phone] Not Available Not Available Not Available aripipraz [...] Updated DateTime 5 162.56 cm 33.1 kg/m2 48511.3 3 g 102 /min 97 [degF] 97 % 97 % 122 mm[Hg] 70 mm[Hg] Deirdre [employer] [facility] [employer] 5 14:39:38 Date Recorded Body height Body mass index (BMI) Body weight Heart rate Body temperature Oxygen saturation Oxygen saturation in Arterial blood by Pulse oximetry Systolic blood pressure Diastolic blood pressure Provider Name and Address Organization Details Last Updated DateTime 4 162.56 cm 34.7 kg/m2 90412.6 6 g 73 /min 97.9 [degF] 96 % 96 % 130 mm[Hg] 82 mm[Hg] MARTHA Long [employer] [facility] [employer] [facility] 4 12:01:28 Date Recorded Body height Body mass index (BMI) Body weight Heart rate Body temperature Oxygen saturation Oxygen saturation in Arterial blood by Pulse oximetry Systolic blood pressure Diastolic blood pressure Provider Name and Address Organization Details Last Updated DateTime 3 162.56 cm 34.2 kg/m2 23996.8 8 g 93 /min 97 [degF] 97 % 97 % 120 mm[Hg] 78 mm[Hg] Deirdre [employer] [facility] [employer] 3 11:38:53 Date Recorded Body height Body mass index (BMI) Body weight Heart rate Body temperature Oxygen saturation Oxygen saturation in Arterial blood by Pulse oximetry Systolic blood pressure Diastolic blood pressure Provider Name and Address Organization Details Last Updated DateTime 4 162.56 cm 33.6 kg/m2 24628.1 g 93 /min 97.2 [degF] 95 % 95 % 124 mm[Hg] 82 mm[Hg] Daja Alicea [employer]DIES[employer]rena [facility] [employer] [facility] 4 11:56:35 Date Recorded Body height Body mass index (BMI) Body weight Heart rate Body temperature Oxygen saturation Oxygen saturation in Arterial blood by Pulse oximetry Systolic blood pressure Diastolic blood pressure Provider Name and Address Organization Details Last Updated DateTime 3 162.56 cm 34.5 kg/m2 46955.0 7 g 95 /min 97 [degF] 98 % 98 % 132 mm[Hg] 80 mm[Hg] eDirdre Tee [place] [employer] [facility] [employer] [facility] 3 11:40:08 Social History Question Answer Notes LastModified by Organizat ion Details LastModified Time Tobacco Smoking Status Never Smoker Not Available [facility] 12/18/2022 07:27:07 Do You Have An Advance Directive? No MIGRATION.93065 [id number] Information not available 12/18/2022 In The 14 Days Before Symptom Onset, Have You Had Close Contact With A Laboratory-confir med COVID-19 While That Case Was Ill? No MIGRATION.77740 20580 Information not available 12/18/2022 In The 14 Days Before Symptom Onset, Have You Had Close Contact With A Person Who Is Under Investigation For COVID-19 While That Person Was Ill? No MIGRATION.32609 98173 Information not available 12/18/2022 What Type Of Diet Are You Following? REGULAR MIGRATION.16118 53368 Information not available 12/18/2022 Have There Been Any Changes To Your Family Or Social Situation? No MIGRATION.07497 57247 Information not available 12/18/2022 What Is The Fluoride Status Of Your Home? Unknown MIGRATION.05678 41671 Information not available 12/18/2022 Are There Any Guns Present In Your Home? Yes MIGRATION.24346 86815 Information not available 12/18/2022 Do You Use Insect Repellent Routinely? No MIGRATION.24969 33959 Information not available 12/18/2022 Where Do You Live? [place] MIGRATION.34423 70339 Information not available 12/18/2022 Do You Have A Medical Power Of Continuing Education Specialist? No MIGRATION.41204 11074 Information not available 12/18/2022 What Was The Date Of Your Most Recent Tobacco Screening? 03/08/2022 MIGRATION.59811 19074 Information not available 12/18/2022 Do You Have Any Pets? Yes MIGRATION.62633 72732 Information not available 12/18/2022 What Is Your Relationship Status? MIGRATION.42901 27413 Information not available 12/18/2022 Do You Use Your Seat Belt Or Car Seat Routinely? Yes MIGRATION.17961 47242 Information not available 12/18/2022 Do You Have Smoke And Carbon Monoxide Detectors In Your Home? Yes MIGRATION.19098 52551 Information not available 12/18/2022 Are You Passively Exposed To Smoke? No MIGRATION.30665 43386 Information not available 12/18/2022 Are There Any Smokers In Your House? No MIGRATION.49424 62933 Information not available 12/18/2022 Do You Use Sunscreen Routinely? No MIGRATION.62356 72532 Information not available 12/18/2022 Have You Recently Traveled Abroad? No MIGRATION.60386 75832 Information not available 12/18/2022 Do You Have Any Dietary Restrictions? No MIGRATION.19087 99823 Information not available 12/18/2022 Sex: Unknown Functional Status Question Answer Note LastModified by Organizat ion Details LastModified Time Do you or have you ever used any other forms of tobacco or nicotine? No MIGRATION.[id number] 26 Information not available 12/18/2022 What is your level of alcohol consumption? None MIGRATION.62217234 26 Information not available 12/18/2022 What is your exercise level? Occasional MIGRATION.30035425 26 Information not available 12/18/2022 Mental Status [...] DISEASE/DISORDER N HISTORY OF DRUG ABUSE N COPD N RADIATION / CHEMOTHERAPY N Other # 2 N BLOOD DISEASES N EAR OR HEARING PROBLEMS N MUMPS N SHINGLES N BOWEL PROBLEMS N DEPRESSION (INCLUDING POST ) Y STROKE/TIA N ULCERS N BENIGN PROSTATIC HYPERPLASIA N MEASLES N HYPOTENSION N MYOCARDIAL INFARCTION N OBESITY N GERD/NAUSEA N ANEURYSM N URINARY/BLADDER/KIDNEY PROBLEMS N CORONARY ARTERY DISEASE (CAD) Y ADDICTION CONCERNS N ENDOMETRIOSIS N Impotence N USE OF BLOOD THINNERS N SKIN [...] GLAUCOMA N FOOT PROBLEM N DIVERTICULITIS N CHICKENPOX N SLEEP APNEA N INFECTIOUS DISEASE N HEART ARRHYTHMIA N PROSTATE N INSOMNIA N HIGH CHOLESTEROL / HYPERLIPIDEMIA Y HYPERTHYROIDISM N EYE PROBLEMS N EDEMA N CHRONIC PAIN SYNDROME N HYPOTHYROIDISM Y CAROTID BLOCKAGE N CONSTIPATION N BACK / NECK PROBLEMS N HAVE YOU BEEN HOSPITALIZED OR SEEN IN [facility] IN THE PAST YEAR ? N ATHEROSCLEROSIS N BREAST PROBLEMS N DIALYSIS N ECZEMA N OSTEOPOROSIS N ARTHRITIS N NO SIGNIFICANT PAST MEDICAL HISTORY N APPENDICITIS N DIABETES, TYPE N BAD TEETH N ENT N HEARTBURN / REFLUX N AUTISM SPECTRUM DISORDER (ASD) N HEPATITIS / LIVER DISEASE N GOUT N SLEEP DISORDER N ALZHEIMER'S DISEASE N Brain Problems N HERPES N DEMENTIA N HEADACHES/MIGRAINES N SEIZURES/EPILEPSY N VASCULAR DISEASE N PACEMAKER N Blood Disorder N DIZZINESS N HEART DISEASE/HEART PROBLEMS N KIDNEY DISEASE N MULTIPLE SCLEROSIS N CARDIAC ARRHYTHMIA N CANCER: SPECIFY N ATRIAL FIBRILLATION N Gall Stones N PULMONARY EMBOLISM N AUTOIMMUNE DISEASE N Gynecological History Statement/Question Response Date of Last Pap Date of Last Mammogram Most Recent Bone Density Obstetrics History GPAL:G 0 P 0 0 0 0 Immunizations Vaccine Type Date Status Note Provider Nam e and Address Organization Details Recorded Time SARS-COV-2 (COVID-19) vaccine, UNSPECIFIED 1 completed Not Available [facility] 08/12/2023 11:52:04 SARS-COV-2 (COVID-19) vaccine, UNSPECIFIED 1 completed Not Available [facility] 08/12/2023 11:52:04 Past Encounters Encounter ID Performer Location Encounter Start Date Encounter Closed Date Diagnosis/Indication Diagnosis SNOMED-CT Code Diagnosis ICD10 Code Diagnosis Note [id number] Huber Logan MD [facility] [address] [place] [address] 01/18/2021 00:00:00 01/18/2021 12:21:07 [id number] Huber Logan MD [facility] [place] [address] [facility] [address] [place] [address] 02/15/2021 00:00:00 02/15/2021 12:04:50 [id number] Archie Monge MD [facility] Internal Med [place] [address] [place] [address] [place] [address] 03/02/2021 00:00:00 03/02/2021 15:20:43 [id number] Archie Monge MD [facility] Internal Med [place] [address] [place] [address] [place] [address] 07/06/2021 00:00:00 07/06/2021 12:34:55 [id number] Archie Monge MD [facility] Internal Med [place] [address] [place] [address] [place] [address] 11/09/2021 00:00:00 11/09/2021 11:40:23 [id number] Archie Monge MD [facility] Internal Med [place] [address] [place] [address] [place] [address] 03/08/2022 00:00:00 03/08/2022 11:50:05 [id number] Archie Monge MD [facility] Internal [place] [address] [place] [address] [place] [address] 07/16/2022 00:00:00 07/16/2022 11:44:46 [id number] Archie Monge MD [facility] Internal Med [place] [address] [place] [address] [place] [address] 01/14/2023 11:19:52 01/14/2023 12:00:51 Coronary arteriosclerosis 74562330 I25.10 Essential hypertension 98414185 I10 Hypothyroidism 65559815 E03.9 Pure hypercholesterolemia 446922867 E78.00 Depressive disorder 3548 9007 F32.A Vitamin D deficiency 347 15825 E55.9 [id number] Archie Monge MD [facility] Internal Med [place] [address] [facility] y , [place] [address] 07/15/2023 11:25:36 07/15/2023 12:02:44 Coronary arteriosclerosis 10389219 I25.10 Essential hypertension 82430503 I10 Hypothyroidism 08693326 E03.9 Impaired f asting glycemia 760042504 R73.01 Obese class I 8577656061 66363 E66.9 Hyperlipidemia 47004168 E78.5 [id number] Archie Monge MD [facility] Internal Med [place] [address] [facility] y , [place] [address] 12/12/2023 11:18:58 12/12/2023 12:33:16 Coronary arteriosclerosis 24105148 I25.10 Essential hypertension 62005467 I10 Hypothyroidism 83968105 E03.9 Hyperlipidemia 83182676 E78.5 Chronic ki dney disease stage 3 805797917 N18.30 [id number] Archie Monge MD [facility] Internal Med [place] [address] [facility] , [place] [address] 06/10/2024 11:47:49 06/10/2024 12:22:10 Chronic kidney disease stage 3 771900262 N18.30 Coronary arteriosclerosis 40670530 I25.10 Essential hypertension 91318527 I10 Hypothyroidism 78033302 E03.9 Pure hypercholesterolemia 260091468 E78.00 [id number] Archie Monge MD [facility] Primary [place] [address] [facility] [address] [place] [address] 12/09/2024 14:23:47 12/09/2024 14:59:51 Coronary arteriosclerosis 18304020 I25.10 Essential hypertension 42278076 I10 Gastroesop hageal reflux disease 299850035 K21.00 Pure hypercholesterolemia 875421768 E78.00 Obese class I 2635801647 88392 E66.9 Hypothyroidism 74789320 E03.9 Health Concerns Section Related Observation LastModified by Organization Detai ls LastModified Time None Recorded Concern Status LastModified by Organization Details LastModified Time None Recorded Advance Directives Directive N: Payers Encounter Date Sequence Insurance Name Policy Number Policy Lozada Covered Member ID Lozada Member ID Guarantor Name 01/14/2023 1 [place] Ewelina Rolle Taurus [id number] Ewelina Rolle Taurus 01/14/2023 2 [id number] Ewelina Rolle Taurus [id number] Ewelina Rolle Taurus 07/15/2023 1 [place] Ewelina Rolle Taurus [id number] 95 Ewelina Rolle Taurus 07/15/2023 2 [id number] Ewelina Rolle Taurus [id number] 49 Ewelina Rolle Taurus 12/12/2023 1 [place] Ewelina Rolle Taurus [id number] 95 Ewelina Rolle Taurus 12/12/2023 2 [id number] Ewelina Rolle Taurus [id number] Ewelina Rolle Taurus 06/10/2024 1 [place] Ewelina Rolle Taurus [id number] 5 [id number] 95 Ewelina Rolle Taurus 06/10/2024 2 [id number] Ewelina Rolle Taurus [id number] 49 Ewelina Rolle Taurus 12/09/2024 1 [place] Ewelina Rolle Taurus [id number] 95 Ewelina Rolle Taurus 12/09/2024 2 [id number] Ewelina Rolle Taurus [id number] Ewelina Rol[employer] Taurus Notes Date Note Type Note Provider Name and Address Organization Details Recorded Time text/html Patient Name: Ewelina MasononDate Of Service: [...] MG (TABLET - ORAL) 2 Tablets Tid-dr. BurksLipitor 40 MG (TABLET - ORAL) DailyTrazodone 100 MG (TABLET - ORAL) Two HsReclast 5 MG /100 ML (INJECTABLE - INTRAVENOUS) Once A YearLexapro 5 MG TABLET, FILM COATED Once DailyAripiprazole 5 MG TABLET Once Daily At BedtimeADRs List Reviewed 01/14/2023Zoloft DiarrheaVaccination and Jvzompahupnn9291-05 Covid PfizerSurgical HistoryLeft TKAPreventative Testing Confirmed by Our Haglflm1910/16/2022 MAMMOGRAM HAIC11/17/2019 UPPER ZYXYZVBXY82/04/2019 COLONOSCOPY (10 YEARS) ALBUMIN 4.3 G/DLSocial HistorySOCIAL HISTORY:Smoking Hx: 1.5 of cigarettes per day for 5 years. Drinking Hx: 1 Case beers per week, 5 Cups of tea per day, < 6 cans of soft drinks per day.Exercise: InfrequentlySexual Hx: Sexually ActiveOccupation: Office WorkerFamily HistoryFAMILY HISTORY:Mother 76 years oldFather 56 years old1 Brothers 1 LivingMother Hx: ASHDFather Hx: KARL Monge MD [address] [place] [address], [phone], [place] [facility] 01/14/2023 11:52:44 3 text/html Patient Name: Ewelina [...] diabetic management and include diet only. Last [facility]: controlled #5. Hx of obesity. Currently Class [...] offered to be evaluated and instructed by district administrative assistant on weight loss diet.Medication List Reviewed and [...] At BedtimeADRs List Reviewed 07/15/2023Zoloft DiarrheaVaccination and Kiesdhytsuau8304-80 Covid PfizerSurgical HistoryBilateral Cataracts, Left TKAPreventative Testing Confirmed by Our Aobljrs0404/18/2023 LETTER PPKFZQAMAFTGH73/28/2022 MAMMOGRAM / HAIC11/17/2019 UPPER IMWYSUASH33/04/2019 COLONOSCOPY (10 YEARS) ALBUMIN 4.3 G/DLSocial HistorySOCIAL HISTORY:Smoking Hx: 1.5 of cigarettes per day for 5 years. Drinking Hx: 1 Case beers per week, 5 Cups of tea per day, < 6 cans of soft drinks per day.Exercise: InfrequentlySexual Hx: Sexually ActiveOccupation: Office WorkerFamily HistoryFAMILY HISTORY:Mother 76 years oldFather 56 years old1 Brothers 0 LivingMother Hx: ASHDFather Hx: KARL Monge MD [address] [place] [address], [phone], [facility] 07/15/2023 11:59:38 4 text/html Patient Name: Ewelina [...] well. Currently is not followed by a rail grinder. Stage: CKD-3a. Albumin Stage: A1. There has [...] Adverse Drug Reactions ReviewedZoloft Diarrhea Vaccination and Jlsweqjzboeh6051-27 Covid [facility] Xkctsda1432-46 Bilateral Mpuoifqmo0619-87 Left TKA Preventative Testing Confirmed by Our Oragbgd9209/30/2023 DEXA SCAN (NORMAL HIP - AP OSTEOPENIA)04/18/2023 GSPSAHYTCWZNZ41/28/2022 MAMMOGRAM / HAIC11/17/2019 UPPER KBTXRHRHC13/04/2019 COLONOSCOPY (10 YEARS) ALBUMIN 4.3 G/DL N [...] Hx: ASHDFather Hx: KARL Monge MD [address] [facility] [facility] [address], [place], [address], [facility] 12/12/2023 12:31:07 4 text/html Patient Name: Ewelina oRlle LogsdonDate Of Service: May ( 06.10.2024 ): [...] doing well. Currently is followed by a rail grinder. Stage: CKD-3b. Albumin Stage: A1. There has [...] offered to be evaluated and instructed by district administrative assistant on weight loss diet. Active Medication ListSynthroid [...] Adverse Drug Reactions ReviewedZoloft Diarrhea Vaccination and Ldbtriqmomdy8777-79 Covid [facility] Hbpemiv5441-61 Bilateral Flmthgygg3125-90 Left TKA Preventative Testing( ) 09/30/2023 DEXA Scan (Normal Hip - AP Osteopenia)( ) 04/18/2023 Ophthalmology( ) 10/16/2022 Mammogram 10/16/2024( ) 07/16/2022 HAIC( ) [...] Hx: ASHDFather Hx: KARL Monge MD [address], [address], [facility] 06/10/2024 12:17:05 5 text/html Patient Name: Ewelina GoddardnconDate Of Service: November ( 12.09.2024 ): 1955 [...] #1. Surgical Clearance: [facility] clearance for surgery as requested by Dr. Patino. Is scheduled to have Rt. TKA at [facility] several weeks. The surgery is [...] offered to be evaluated and instructed by district administrative assistant on weight loss diet. Active Medication ListSynthroid [...] Reactions ReviewedZoloft Diarrhea Vaccination and Immunization(X) 2020- [facility] Hfmeded4015-96 Bilateral Fqvccrwly5248-69 Left TKA Preventative Testing( ) 09/30/2023 DEXA [...] Hx: ASHDFather Hx: KARL Monge MD [address] [facility] [facility] [address], [place], [address], [facility] 12/09/2024 14:49:36 OBGyn Episode No OBEpisode recorded.
--- OUTSIDE RECORDS SUMMARY | 2025-03-23 12:38 | XMS_ITS | CONTINUITY OF CARE DOCUMENT ---
Author Name marco a strickland Address Unknown Organization [facility] Address [address] [facility] [address] [place] [address] Phone [phone] Care Team Providers Care Wire Weaver Name Role Phone Ethan VALLES, Gallo Unavailable [phone] BRIA VALLES, ARCHIE Unavailable ARCHIE FRASER MD Unavailable PROBLEMS Condition Status [...] In-person encounter Office Visit Gallo Long MD [facility] - In-person encounter Office Visit Gallo Long MD [facility] - In-person encounter Office Visit Gallo Long MD [facility] - In-person encounter Office Visit Gallo Long MD [facility] - In-person encounter Office Visit Gallo Long MD [facility] - In-person encounter Office Visit Gallo Long MD [facility] - In-person encounter Office Visit Gallo Long MD [facility] - In-person encounter Office Visit Gallo Long MD [facility] - In-person encounter Office Visit Gallo Long MD [facility] - In-person encounter Office Visit Gallo Long MD [facility] CADOBESITYDIASTOLIC DYSFUNCTIONISCHEMIA;NEG NUC 2010CHEST PAIN - In-person encounter Office Visit Gallo Long MD [facility] - In-person encounter Office Visit Gallo Long MD [facility] - In-person encounter Office Visit Gallo Long MD [facility] Family History Coronary Heart Disease male < 55: - In-person encounter Office Visit Gallo Long MD [facility] - In-person encounter Office Visit Homero Key MD [facility] CADHTN-07/28 ECHO EF 55 3 ECHO EF 60OBESITYCAROTID-12/26 CAROTID UNCHANGE 08/24 CAROTID NEGCHEST PAIN-07/28 NUC NEG 12/24 NUC NEGAMI, SUBENDOCARDIAL;100% DX 03 ONLYFAMILY HISTORY OF HEART DISEASEDIASTOLIC DYSFUNCTIONCHEST PAINSNORING; - In-person encounter Office Visit Gallo Long MD [facility] - In-person encounter Office Visit Gallo Long MD [facility] - In-person encounter Office Visit Gallo Long MD [facility] - In-person encounter Office Visit Gallo Long MD [facility] - In-person encounter Office Visit Gallo Long MD [facility] TOBACCO ABUSEHyperlipidemia - In-person encounter Office Visit Gallo Long MD [facility] - In-person encounter Office Visit Gallo Long MD [facility] VITAL SIGNS Date Observation Value Provider [...] Body Mass Index (Ratio) 34.33 kg/m2 Anea roal [place] blood pressure, diastolic 85 mm[Hg] An [...] LinkLogic 20-275 Normal platelet count 233 10*3/mm3 [facility] hematocrit, blood 39.0 % [facility] international normalized ratio (INR) 1.0 [facility] creatinine, serum 1.20 mg/dL [facility] potassium, serum 3.3 mmol/L [facility] sodium, serum 138 mmol/L [facility] hemoglobin A1C, blood, as % of [...] u[IU]/mL Susana Clements platelet count 237 10*3/mm3 [facility] hematocrit, blood 36.5 % [facility] lipoprotein, beta, serum, point, quantitative, calculated 77 mg/dL [facility] cholesterol, serum 178 mg/dL [facility] alanine aminotransferase (SGPT), serum 25 1/L [facility] aspartate aminotransferase (SGOT), serum 27 1/L [facility] creatinine, serum 0.98 mg/dL [facility] potassium, serum 4.3 mmol/L [facility] sodium, serum 140 mmol/L [facility] B-12, serum 250 pg/mL [facility] platelet count 197 10*3/uL [facility] red blood cell distribution width 14.6 % [facility] mean corpuscular hemoglobin concentration, RBC 33.6 g/dL [facility] mean corpuscular hemoglobin, RBC 34.0 pg [facility] mean corpuscular volume, RBC 101.2 fL [facility] hematocrit, blood 36.3 % [facility] hemoglobin, blood 12.2 g/dL [facility] erythrocyte (RBC) count 3.59 10*6/mm3 [facility] monocytes as percent of blood leukocytes 4.9 % [facility] lymphocytes as percent of blood leukocytes 44.5 % [facility] leukocyte count, blood 4.1 10*3/mm3 [facility] globulins, serum, total 2.3 g/dL [facility] Estimated Glomerular Filtration Rate (calc) 54 mL/min/{1 .73_m2} [facility] albumin/globulin ratio, serum 1.9 [facility] protein, total, serum 6.7 g/dL [facility] albumin, serum 4.4 g/dL [facility] bilirubin, serum, total 0.3 mg/dL [facility] alkaline phosphatase, serum 42 1/L [facility] alanine aminotransferase (SGPT), serum 24 1/L [facility] aspartate aminotransferase (SGOT), serum 21 1/L [facility] calcium, serum 9.2 mg/dL [facility] blood glucose, fasting 95 mg/dL [facility] creatinine, serum 1.06 mg/dL [facility] urea nitrogen, blood 13 mg/dL [facility] carbon dioxide, serum, total 21 mmol/L [facility] chloride, serum 112 mmol/L [facility] potassium, serum 4.2 mmol/L [facility] sodium, serum 141 mmol/L [facility] cholesterol/HDL ratio, serum 2.2 [facility] triglyceride, serum, fasting 62 mg/dL [facility] HDL cholesterol, serum 69 mg/dL [facility] LDL cholesterol, serum 74 mg/dL [facility] cholesterol, serum 155 mg/dL [facility] thyroid stimulating hormone, serum 3.62 u[IU]/mL [facility] thyroxine, serum, free 1.0 ng/dL [facility] cholesterol/HDL ratio, serum, percent 2.8 (calc) [...] LinkLog (5-26) blood glucose, random 98 mg/dL [facility] triglyceride, serum, fasting 91 mg/dL [facility] HDL cholesterol, serum 62 mg/dL [facility] LDL cholesterol, serum 97 mg/dL [facility] cholesterol, serum 177 mg/dL [facility] triglyceride, serum, fasting 195 mg/dL [facility] HDL cholesterol, serum 58 mg/dL [facility] LDL cholesterol, serum 113 mg/dL [facility] cholesterol, serum 210 mg/dL [facility] HISTORY OF MEDICATION USE Medication Status [...] Stephanie Dunham Lexapro 5 mg tablet active [facility] fenofibric acid (choline) 135 mg capsule,delayed release(DR/EC) [...] Gallo Long MD seatbelt usage 100 % [facility] physical exercise, frequency, days per week no [facility] alcohol use, average drinks per day social basis only [facility] alcohol use no [facility] caffeine use, averag e drinks per day yes [facility] drug use none [facility] smoking/tobacco cess ation, patient education and counseling yes [facility] passive cigarette sm rubia exposure no [facility] chewing tobacco use no [facility] cigar use no [address] number of years as a smoker less than 10 years [facility] smoking, date started 1998 [facility] smoking history, tot al pack/year 20 [address] smoking history, tot al pack/day 1 [facility] cigarette use yes [facility] smoking status Current every day smoker D [facility] social history E&M Marital Statu s: L [...] RN FAMILY HISTORY Family Member Condition Father PA male <55 Other Family Member Family History Coron kyaw Heart Disease male < 55: Father Family History of Co ronary Artery Disease: INSURANCE PROVIDERS Payer name Policy type / Coverage type [place] red democrat ID [place] Medicare [id number] ADVANCE DIRECTIVES Name Date DISCUSSED - NO DECISION MADE TREATMENT PLAN Date Name Performer [id number],S, Gallo johnson MD [id number],S, Gallo johnson MD [id number],S, Gallo johnson MD [id number],B, Gallo johnson MD [id number],S, Gallo johnson MD [id number],S, Gallo johnson MD [id number],S, Gallo johnson MD [id number],S, Gallo johnson MD [id number],S, Gallo johnson MD [id number],S, Gallo johnson MD [id number],S, Gallo johnson MD [id number],S, Gallo johnson MD [id number],B, Gallo johnson MD Cardiology:Losing a little weigh [...] tab. daily Orders: S TR - Adenosine (47054) C omplete Echo (CPT-37909) Gallo Long MD follow up Gallo Long [...] ..... One tab. daily Simcor 1000-40 Mg Tr66q-urx (Niacin-simvastatin) ..... One tab. daily - dispense as written Cholestyramine Pack (Cholestyramine pack) ..... Once daily Gallo Long MD test results : B P today: 135/89 Prior BP: 132/81 (12/02/2013) C HOL: 160 (12/03/2013) LDL: 48 (12/03/2013) HDL: 99 (12/03/2013) T (12/03/2013) Her updated medication list for this problem includes: Trilipix 135 Mg Cpdr (Choline fenofibrate) ..... One tab. daily Simcor 1000-40 Mg Ae08x-oye (Niacin-simvastatin) ..... One tab. daily - dispense [...] ..... One tab. daily Simcor 1000-40 Mg Rd14r-min (Niacin-simvastatin) ..... One tab. daily - dispense [...] ..... One tab. daily Simcor 1000-40 Mg Ju03f-kty (Niacin-simvastatin) ..... One tab. daily - dispense [...] ..... One tab. daily Simcor 1000-40 Mg Cc60y-obr (Niacin-simvastatin) ..... One tab. daily - dispense as written Cholestyramine Pack (Cholestyramine pack) ..... Once daily BP today: 132/81 Prior BP: 119/74 (01/19/2013) C HOL: 178 (07/07/2012) LDL: 77 (07/07/2012) HDL: 69 (01/17/2011) T (01/17/2011) Orders: S TR - Adenosine (57394) C omplete Echo (CPT-44948) Homero Key MD clin desk not reviewed Homero dorantes MD follow up: T he following medications were removed from the medication list: Altace 10 Mg Caps (Ramipril) ..... One tab. daily Her updated medication list for this problem includes: Aspirin 325 Mg Tabs (Aspirin) ..... One tab. daily Trilipix 135 Mg Cpdr (Choline fenofibrate) ..... One tab. daily Simcor 1000-40 Mg Zc26t-fll (Niacin-simvastatin) ..... One tab. daily - dispense [...] (Aspirin) ..... One tab. daily Orders: EKG (CPT-06620) Carotid Duplex Scan: N o significant stenosis [...] ..... One tab. daily Simcor 1000-40 Mg Zh56l-brz (Niacin-simvastatin) ..... One tab. daily - dispense [...] ..... One tab. daily Simcor 500-20 Mg To49q-ars (Niacin-simvastatin) ..... 2 tablets daily BP today: 100/60 Prior BP: 106/74 (10/09/2010) C HOL: 155 (01/17/2011) LDL: 74 (01/17/2011) HDL: 69 (01/17/2011) T (01/17/2011) Gallo Long MD follow up: H er updated medication list for this problem includes: Altace 10 Mg Caps (Ramipril) ..... One tab. daily Aspirin 325 Mg Tabs (Aspirin) ..... One tab. daily Orders: Complete Echo (CPT-92011) BP today: 100/60 P rior BP: 106/74 [...] ..... One tab. daily Simcor 500-20 Mg Jb74z-pbx (Niacin-simvastatin) ..... 2 tablets daily Orders: C omplete Echo (CPT-63556) BP today: 100/60 Prior BP: 106/74 (10/09/2010) [...] ..... One tab. daily Simcor 500-20 Mg Oj65l-qwo (Niacin-simvastatin) ..... 2 tablets daily BP today: [...] ilateral normal antegrade flow into both vertebrals. [facility] (01/10/2009) Echocardiogram: N ormal left ventricular systolic [...] ..... One tab. daily Simcor 500-20 Mg Yo20g-dov (Niacin-simvastatin) ..... 2 tablets daily BP today: 106/74 Prior BP: 116/80 (08/14/2010) C HOL: 188 (10/04/2010) LDL: 103 MG/DL (CALC) (10/04/2010) HDL: 68 (10/04/2010) T (10/04/2010) Gallo Long MD follow up: H er updated medication list for this problem includes: Altace 10 Mg Caps (Ramipril) ..... One tab. daily Aspirin 325 Mg Tabs (Aspirin) ..... One tab. daily Orders: Complete Echo (CPT-63069) BP today: 116/80 P rior BP: 124/80 (08/15/2009) Labs Reviewed: C reat: 1.26 (08/23/2009) C hol: 198 (08/23/2009) HDL: 60 (08/23/2009) LDL: 114 (08/23/2009) T (08/23/2009) Gallo Long MD follow up: H er updated medication list for this problem includes: Altace 10 Mg Caps (Ramipril) ..... One tab. daily Aspirin 325 Mg Tabs (Aspirin) ..... One tab. daily Orders: EKG (CPT-85397) BP today: 116/80 Prior BP: 124/80 (08/15/2009) [...] ..... One tab. daily Simcor 1000-20 Mg Lm07r-upv (Niacin-simvastatin) ..... Take 1 tab by mouth [...] ..... One tab. daily Simcor 1000-20 Mg Ho00d-gcx (Niacin-simvastatin) ..... Take 1 tab by mouth at bedtime Orders: S tress Test - Adenosine (28621) & #13;BP today: 116/80 Prior BP: 124/80 [...] One tab. daily Orders: L IPID PANEL (1960) C OMPREHENSIVE METABOLIC PANEL W/EGFR (49646) BP today: 124/80 Prior BP: 110/73 (02/07/2009) [...] (07/26/2008) Orders: S tress Test - Nuclear (09267) Gallo Long MD routine-letter fxd: H er updated medication list for this problem includes: Altace 10 Mg Caps (Ramipril) ..... Daily Aspirin 325 Mg Tabs (Aspirin) ..... One tab. daily BP today: 110/73 P rior BP: 120/77 (08/02/2008) Labs Reviewed: C hol: 210 (07/26/2008) HDL: 58 (07/26/2008) LDL: 113 (07/26/2008) T (07/26/2008) Orders: C omplete Echo (CPT-39782) Gallo Long MD routine-letter fxd: H er [...] inimal pulmonic regurgitation. (08/09/2008) Orders: E KG (CPT-85809) Gallo Long MD office visit: T he [...] (07/26/2008) Orders: S tress Test - Nuclear (37787) Gallo Long MD office visit: H er updated medication list for this problem includes: Altace 10 Mg Caps (Ramipril) ..... Daily Aspirin 325 Mg Tabs (Aspirin) ..... One tab. daily BP today: 120/77 Labs Reviewed: C hol: 210 (07/26/2008) HDL: 58 (07/26/2008) LDL: 113 (07/26/2008) T (07/26/2008) Orders: C omplete Echo (CPT-54636) Gallo Long MD office visit: C arotid [...] EKG Gallo Long MD complete d SNOMED-CT: 682552313 032602 Current Medications Documented Gallo Long MD completed EKG Gallo Long MD complete d SNOMED-CT: 904610343 406286 Current Medications Documented Gallo Long MD completed SNOMED-CT: 576454200 Smoking Cessation Counseling Gallo Long MD completed SNOMED-CT: 402221984 882462 Current Medications Documented Gallo Long MD completed EKG Gallo Long MD complete d EKG Homero Key MD complete d ePrescribe - Check t his box if eRx is used Gallo Long MD completed EKG Gallo Long MD complete d EKG Gallo Long MD complete d EKG Gallo Long MD complete d
[2025-03-23 12:53] VITALS: BP 115/72; PULSE 77; RESP 14; RESP 16; O2SAT 99
[2025-03-23 13:04] VITALS: BP 115/72; PULSE 74; RESP 12; O2SAT 99
--- NOTE | 2025-03-23 13:16 | ECG_ITS ---
Test Date: 2025-03-23 13:35:02 Measurements Intervals [place] Rate: 76 P: 33 AK: 147 QRS: 1 QRSD: 79 T: 8 QT: 417 QTc: 470 Interpretive Statements SINUS RHYTHM BORDERLINE ST-T WAVE ABNORMALITY- ANT/INF LEADS BASELINE ARTIFACT- I, II, III, AVR, AVL, AVF BORDERLINE ECG No previous ECG available for comparison Electronically Signed On 03-23-2025 14:19:42 CDT by Robert Stevens D.O.
--- OUTSIDE RECORDS SUMMARY | 2025-03-23 13:16 | XMS_ITS | Encounter Summary ---
Author Organization [facility] Address [address] [facility] [place] [address] Phone Care Team Providers Care Furniture And Bedding Inspector Name Role Phone Unavailable Primary Care Provider Unavailabl e Reason for Visit * Reason Comments Med Refill Encounter Details Date Type Department Care Team (Late st Contact Info) Description 03/26/2023 Refill [place] [facility] [address] [facility] [address] [place] [address] Wenceslao Solo MD [address] [facility] [address] [place] [address] Social History Tobacco Use Types [...] Description 03/29/2025 10:30 AM CDT Office Visit [place] [facility] [address] [facility] [address] [place] [address] Wenceslao Solo MD [address] [facility] [address] [place] [address] documented as of this encounter Visit Diagnoses Not on filedocumented in this encounter
--- OUTSIDE RECORDS SUMMARY | 2025-03-23 13:16 | XMS_ITS | Clinical Summary ---
Author Organization [facility] Address [address] [place] [address], [place] [address] Care Team Providers Care Hospitality House Supervisor Name Role Phone Unavailable Primary Care Provider [...] Department Care Team Description 03/07/2025 Documentation Only [facility] [address] [phone] Wenceslao Solo MD 02/23/[address] [phone] Liliana Nielson CMA 02/23/2025 Office Communication [facility] [address] [phone] Wenceslao Solo MD 02/21/[address] [phone] Liliana Nielson CMA from Last 3 Months [...] Comments Blood Pressure 120/80 12/14/2024 10:54 AM ACCOUNT RESOLUTION SPECIALIST Pulse 68 12/14/2024 10:54 AM ACCOUNT RESOLUTION SPECIALIST Temperature 36.1 C (97 F) 12/14/2024 10:54 AM ACCOUNT RESOLUTION SPECIALIST Respiratory Rate 18 12/14/2024 10:54 AM ACCOUNT RESOLUTION SPECIALIST Oxygen Saturation 97% 12/14/2024 10:54 AM ACCOUNT RESOLUTION SPECIALIST Inhaled Oxygen Concentration - - Weight 91 kg (200 lb 11.2 oz) 12/14/2024 10:54 A M ACCOUNT RESOLUTION SPECIALIST Height 160 cm (5' 3) 05/18/2024 10:27 AM CDT Body Mass Index 35.55 05/18/2024 10:27 AM CDT Plan of Treatment Upcoming Encounters Date Type Department Care Team (Late st Contact Info) Description 03/29/2025 10:30 AM CDT Office Visit [facility], [facility] [address] [facility] [address] [place] [address] Wenceslao Solo MD [address] [phone] Health Maintenance Due Date Last [...] age to complete this topic Insurance Medicare [facility]
--- OUTSIDE RECORDS SUMMARY | 2025-03-23 13:17 | XMS_ITS | CONTINUITY OF CARE DOCUMENT ---
Author Name marco a strickland Address Unknown Organization [facility] Address [address] [place] [address] Phone [phone] Care Team Providers Care Master Sheet Clerk Name Role Phone Ethan VALLES, Gallo Unavailable BRIA VALLES, ARCHIE Unavailable ARCHIE FRASER MD [...] Rosemarie Key MD DIASTOLIC DYSFUNCTION active Gallo oLng MD ISCHEMIA;NEG NUC 2010 completed - Gallo Long MD CHEST PAIN active Gallo Long MD SNORING; active Homero Key MD Family History Coronary Hear t Disease male < 55: active ? Gallo Long MD ENCOUNTERS Date Type Provider Location Encounter Diag nosis - In-person encounter Office Visit Gallo Long MD [facility] - In-person encounter Office Visit Gallo Long MD [facility] - In-person encounter Office Visit Gallo Long MD [facility] - In-person encounter Office Visit Gallo Long MD [facility] - In-person encounter Office Visit Gallo Long MD [facility] - In-person encounter Office Visit Gallo Long MD [facility] - In-person encounter Office Visit Gallo Long MD [facility] - In-person encounter Office Visit Gallo Long MD [facility] - In-person encounter Office Visit Gallo Long MD [facility] - In-person encounter Office Visit Gallo Long MD [facility] CADOBESITYDIASTOLIC DYSFUNCTIONISCHEMIA;NEG NUC 2010CHEST PAIN - In-person encounter Office Visit Gallo Long MD [facility] - In-person encounter Office Visit Gallo Long MD [facility] - In-person encounter Office Visit Gallo Long MD [facility] Family History Coronary Heart Disease male < 55: - In-person encounter Office Visit Gallo Long MD [facility] - In-person encounter Office Visit Homero Key MD [facility] CADHTN-07/28 ECHO EF 55 3 ECHO EF 60OBESITYCAROTID-12/26 CAROTID UNCHANGE 08/24 CAROTID NEGCHEST PAIN-07/28 NUC NEG 12/24 NUC NEGAMI, SUBENDOCARDIAL;100% DX 03 ONLYFAMILY HISTORY OF HEART DISEASEDIASTOLIC DYSFUNCTIONCHEST PAINSNORING; - In-person encounter Office Visit Gallo Long MD [facility] - In-person encounter Office Visit Gallo Long MD [facility] - In-person encounter Office Visit Gallo Long MD [facility] - In-person encounter Office Visit Gallo Long MD [facility] - In-person encounter Office Visit Gallo Long MD [facility] TOBACCO ABUSEHyperlipidemia - In-person encounter Office Visit Gallo Long MD [facility] - In-person encounter Office Visit Gallo Long MD [facility] VITAL SIGNS Date Observation Value Provider [...] [employer]ic 20-275 Normal platelet count 233 10*3/mm3 [facility] hematocrit, blood 39.0 % [facility] international normalized ratio (INR) 1.0 [facility] creatinine, serum 1.20 mg/dL [facility] potassium, serum 3.3 mmol/L [facility] sodium, serum 138 mmol/L [facility] hemoglobin A1C, blood, as % of [...] u[IU]/mL Susana Clements platelet count 237 10*3/mm3 [facility] hematocrit, blood 36.5 % [facility] lipoprotein, beta, serum, point, quantitative, calculated 77 mg/dL [facility] cholesterol, serum 178 mg/dL [facility] alanine aminotransferase (SGPT), serum 25 1/L [facility] aspartate aminotransferase (SGOT), serum 27 1/L [facility] creatinine, serum 0.98 mg/dL [facility] potassium, serum 4.3 mmol/L [facility] sodium, serum 140 mmol/L [facility] B-12, serum 250 pg/mL [facility] platelet count 197 10*3/uL [facility] red blood cell distribution width 14.6 % [facility] mean corpuscular hemoglobin concentration, RBC 33.6 g/dL [facility] mean corpuscular hemoglobin, RBC 34.0 pg [facility] mean corpuscular volume, RBC 101.2 fL [facility] hematocrit, blood 36.3 % [facility] hemoglobin, blood 12.2 g/dL [facility] erythrocyte (RBC) count 3.59 10*6/mm3 [facility] monocytes as percent of blood leukocytes 4.9 % [facility] lymphocytes as percent of blood leukocytes 44.5 % [facility] leukocyte count, blood 4.1 10*3/mm3 [facility] globulins, serum, total 2.3 g/dL [facility] Estimated Glomerular Filtration Rate (calc) 54 mL/min/{1 .73_m2} [facility] albumin/globulin ratio, serum 1.9 [facility] protein, total, serum 6.7 g/dL [facility] albumin, serum 4.4 g/dL [facility] bilirubin, serum, total 0.3 mg/dL [facility] alkaline phosphatase, serum 42 1/L [facility] alanine aminotransferase (SGPT), serum 24 1/L [facility] aspartate aminotransferase (SGOT), serum 21 1/L [facility] calcium, serum 9.2 mg/dL [facility] blood glucose, fasting 95 mg/dL [facility] creatinine, serum 1.06 mg/dL [facility] urea nitrogen, blood 13 mg/dL [facility] carbon dioxide, serum, total 21 mmol/L [facility] chloride, serum 112 mmol/L [facility] potassium, serum 4.2 mmol/L [facility] sodium, serum 141 mmol/L [facility] cholesterol/HDL ratio, serum 2.2 [facility] triglyceride, serum, fasting 62 mg/dL [facility] HDL cholesterol, serum 69 mg/dL [facility] LDL cholesterol, serum 74 mg/dL [facility] cholesterol, serum 155 mg/dL [facility] thyroid stimulating hormone, serum 3.62 u[IU]/mL [facility] thyroxine, serum, free 1.0 ng/dL [facility] cholesterol/HDL ratio, serum, percent 2.8 (calc) [...] [facility] (65-99) triglyceride, serum, fasting 91 mg/dL [facility] HDL cholesterol, serum 62 mg/dL [facility] LDL cholesterol, serum 97 mg/dL [facility] cholesterol, serum 177 mg/dL [facility] triglyceride, serum, fasting 195 mg/dL [facility] HDL cholesterol, serum 58 mg/dL [facility] LDL cholesterol, serum 113 mg/dL [facility] cholesterol, serum 210 mg/dL [facility] HISTORY OF MEDICATION USE Medication Status [...] Stephanie Dunham Lexapro 5 mg tablet active [facility] fenofibric acid (choline) 135 mg capsule,delayed [...] Gallo Long MD seatbelt usage 100 % [facility] physical exercise, frequency, days per week no [facility] alcohol use, average drinks per day social basis only [facility] alcohol use no [facility] caffeine use, averag e drinks per day yes [facility] drug use none [facility] smoking/tobacco cess ation, patient education and counseling yes [facility] passive cigarette sm [place] exposure no [facility] chewing tobacco use no [facility] cigar use no Jesika Gomer number of years as a smoker less than 10 years [facility] smoking, date started 1998 [facility] smoking history, tot al pack/year 18 Jesika Elle smoking history, tot al pack/day 1 [facility] cigarette use yes [facility] smoking status Current every day smoker D [facility] social history E&M Marital Statu s: L [...] RN FAMILY HISTORY Family Member Condition Father CA male <55 Other Family Member Family History Coron kyaw Heart Disease male < 55: Father Family History of Co ronary Artery Disease: INSURANCE PROVIDERS Payer name Policy type / Coverage type [place] [employer] party ID [place] Medicare [id number] ADVANCE DIRECTIVES Name Date DISCUSSED - NO DECISION MADE TREATMENT PLAN Date Name Performer [id number],S, Gallo johnson MD [id number],S, Gallo johnson MD [id number],S, Gallo johnson MD [id number],B, Gallo johnson MD [id number],S, Gallo johnson MD [id number],S, Gallo johnson MD [id number],S, Gallo johnson MD [id number],S, Gallo johnson MD [id number],S, Gallo johnson MD [id number],S, Gallo johnson MD [id number],S, Gallo johnson MD [id number],S, Gallo johnson MD [id number],B, Gallo johnson MD Cardiology:Losing a little weigh [...] at this time. Gallo Long MD Cardiology Galol Long MD Cardiology Gallo Long MD Cardiology [...] tab. daily Orders: S TR - Adenosine (53707) C omplete Echo (CPT-79103) Gallo Long MD follow up Gallo Long [...] ..... One tab. daily Simcor 1000-40 Mg Fe24j-hje (Niacin-simvastatin) ..... One tab. daily - dispense as written Cholestyramine Pack (Cholestyramine pack) ..... Once daily Gallo Long MD test results : B P today: 135/89 Prior BP: 132/81 (12/02/2013) C HOL: 160 (12/03/2013) LDL: 48 (12/03/2013) HDL: 99 (12/03/2013) T (12/03/2013) Her updated medication list for this problem includes: Trilipix 135 Mg Cpdr (Choline fenofibrate) ..... One tab. daily Simcor 1000-40 Mg [id number]-ahx (Niacin-simvastatin) ..... One tab. daily - dispense [...] ..... One tab. daily Simcor 1000-40 Mg Tq52x-hly (Niacin-simvastatin) ..... One tab. daily - dispense [...] ..... One tab. daily Simcor 1000-40 Mg Iq98v-reb (Niacin-simvastatin) ..... One tab. daily - dispense [...] ..... One tab. daily Simcor 1000-40 Mg Ue49f-syc (Niacin-simvastatin) ..... One tab. daily - dispense as written Cholestyramine Pack (Cholestyramine pack) ..... Once daily BP today: 132/81 Prior BP: 119/74 (01/19/2013) C HOL: 178 (07/07/2012) LDL: 77 (07/07/2012) HDL: 69 (01/17/2011) T (01/17/2011) Orders: S TR - Adenosine (12517) C omplete Echo (CPT-06136) Homero Key MD clin desk not reviewed Homero dorantes MD follow up: T he following medications were removed from the medication list: Altace 10 Mg Caps (Ramipril) ..... One tab. daily Her updated medication list for this problem includes: Aspirin 325 Mg Tabs (Aspirin) ..... One tab. daily Trilipix 135 Mg Cpdr (Choline fenofibrate) ..... One tab. daily Simcor 1000-40 Mg Ve08v-ntf (Niacin-simvastatin) ..... One tab. daily - dispense [...] (Aspirin) ..... One tab. daily Orders: EKG (CPT-39389) Carotid Duplex Scan: N o significant stenosis [...] ..... One tab. daily Simcor 1000-40 Mg Qv29m-gax (Niacin-simvastatin) ..... One tab. daily - dispense [...] ..... One tab. daily Simcor 500-20 Mg Ly74o-ssk (Niacin-simvastatin) ..... 2 tablets daily BP today: 100/60 Prior BP: 106/74 (10/09/2010) C HOL: 155 (01/17/2011) LDL: 74 (01/17/2011) HDL: 69 (01/17/2011) T (01/17/2011) Gallo Long MD follow up: H er updated medication list for this problem includes: Altace 10 Mg Caps (Ramipril) ..... One tab. daily Aspirin 325 Mg Tabs (Aspirin) ..... One tab. daily Orders: Complete Echo (CPT-57537) BP today: 100/60 P rior BP: 106/74 [...] ..... One tab. daily Simcor 500-20 Mg Yl49h-xdw (Niacin-simvastatin) ..... 2 tablets daily Orders: C omplete Echo (CPT-36877) BP today: 100/60 Prior BP: 106/74 (10/09/2010) [...] ..... One tab. daily Simcor 500-20 Mg Bz50q-crx (Niacin-simvastatin) ..... 2 tablets daily BP today: [...] ilateral normal antegrade flow into both vertebrals. [facility] (01/10/2009) Echocardiogram: N ormal left ventricular systolic [...] ..... One tab. daily Simcor 500-20 Mg Tp31i-iaz (Niacin-simvastatin) ..... 2 tablets daily BP today: 106/74 Prior BP: 116/80 (08/14/2010) C HOL: 188 (10/04/2010) LDL: 103 MG/DL (CALC) (10/04/2010) HDL: 68 (10/04/2010) T (10/04/2010) Gallo Long MD follow up: H er updated medication list for this problem includes: Altace 10 Mg Caps (Ramipril) ..... One tab. daily Aspirin 325 Mg Tabs (Aspirin) ..... One tab. daily Orders: Complete Echo (CPT-23030) BP today: 116/80 P rior BP: 124/80 (08/15/2009) Labs Reviewed: C reat: 1.26 (08/23/2009) C hol: 198 (08/23/2009) HDL: 60 (08/23/2009) LDL: 114 (08/23/2009) T (08/23/2009) Gallo Long MD follow up: H er updated medication list for this problem includes: Altace 10 Mg Caps (Ramipril) ..... One tab. daily Aspirin 325 Mg Tabs (Aspirin) ..... One tab. daily Orders: EKG (CPT-86754) BP today: 116/80 Prior BP: 124/80 (08/15/2009) [...] ..... One tab. daily Simcor 1000-20 Mg Bj88r-jlc (Niacin-simvastatin) ..... Take 1 tab by mouth [...] ..... One tab. daily Simcor 1000-20 Mg Zz38r-dzb (Niacin-simvastatin) ..... Take 1 tab by mouth at bedtime Orders: S tress Test - Adenosine (60232) & #13;BP today: 116/80 Prior BP: 124/80 [...] K+: 4.4 (08/23/2009) Cl: 106 (08/23/2009) Gallo oLng MD test results: H er updated medication list for this problem includes: Simcor 500-20 Mg Tb24 (Niacin-simvastatin) ..... One tab. daily Trilipix 135 Mg Cpdr (Choline fenofibrate) ..... One tab. daily Orders: L IPID PANEL (8550) C OMPREHENSIVE METABOLIC PANEL W/EGFR (18222) BP today: 124/80 Prior BP: 110/73 (02/07/2009) [...] (07/26/2008) Orders: S tress Test - Nuclear (13452) Gallo Long MD routine-letter fxd: H er updated medication list for this problem includes: Altace 10 Mg Caps (Ramipril) ..... Daily Aspirin 325 Mg Tabs (Aspirin) ..... One tab. daily BP today: 110/73 P rior BP: 120/77 (08/02/2008) Labs Reviewed: C hol: 210 (07/26/2008) HDL: 58 (07/26/2008) LDL: 113 (07/26/2008) T (07/26/2008) Orders: C omplete Echo (CPT-99273) Gallo Long MD routine-letter fxd: H er [...] inimal pulmonic regurgitation. (08/09/2008) Orders: E KG (CPT-87465) Gallo Long MD office visit: T he [...] (07/26/2008) Orders: S tress Test - Nuclear (89996) Gallo Long MD office visit: H er updated medication list for this problem includes: Altace 10 Mg Caps (Ramipril) ..... Daily Aspirin 325 Mg Tabs (Aspirin) ..... One tab. daily BP today: 120/77 Labs Reviewed: C hol: 210 (07/26/2008) HDL: 58 (07/26/2008) LDL: 113 (07/26/2008) T (07/26/2008) Orders: C omplete Echo (CPT-42833) Gallo Long MD office visit: C arotid [...] EKG Gallo Long MD complete d SNOMED-CT: 952504260 369000 Current Medications Documented Gallo Long MD completed EKG Gallo Long MD complete d SNOMED-CT: 523156954 918164 Current Medications Documented Gallo Long MD completed SNOMED-CT: 003752955 Smoking Cessation Counseling Gallo Long MD completed SNOMED-CT: 282961926 667380 Current Medications Documented Gallo Long MD completed EKG Gallo Long MD complete d EKG Homero Key MD complete d ePrescribe - Check t his box if eRx is used Gallo Long MD completed EKG Gallo Long MD complete d EKG Gallo Long MD complete d EKG Gallo Long MD complete d
--- OUTSIDE RECORDS SUMMARY | 2025-03-23 13:17 | XMS_ITS | Encounter Summary ---
Author Organization [employer] [facility] Address [address] [place] [address] Phone Care Team Providers Care Barrel Burner Name Role Phone Unavailable Primary Care Provider Unavailabl e Reason for Visit * Reason Onset Date Comments Med Refill 08/17/2024 Encounter Details Date Type Department Care Team (Late st Contact Info) Description 08/17/2024 Refill [place] [employer] [facility] [address] [place] [address] Preeti Jensen CMA [address] [facility] [address] [place] [address] Social History Tobacco Use Types [...] Description 03/29/2025 10:30 AM CDT Office Visit [place] [employer] [facility] [address] [facility] [address] [place] [address] Wenceslao Solo MD [address] [facility] [address] [place] [address] documented as of this encounter Visit Diagnoses Not on filedocumented in this encounter
--- OUTSIDE RECORDS SUMMARY | 2025-03-23 13:17 | XMS_ITS | Encounter Summary ---
Author Organization [facility] [employer] [facility] Address [address] [place] [address] Phone Care Team Providers Care Convalescent Sitter Name Role Phone Unavailable Primary Care Provider Unavailabl e Reason for Visit * Reason Comments Med Refill Encounter Details Date Type Department Care Team (Late st Contact Info) Description 06/06/2023 [facility] [place] [facility] [address] [facility] [address] [place] [address] Wenceslao Solo MD [address] [facility] [address] [place] [address] Social History Tobacco Use Types [...] Description 03/29/2025 10:30 AM CDT Office Visit [facility] [address] [facility] [address] [place] [address] Wenceslao Solo MD [address] [facility] [address] [place] [address] documented as of this encounter Visit Diagnoses Not on filedocumented in this encounter
--- NOTE | 2025-03-23 13:41 | ED.GENADULT ---
HPI - General Adult General Chief complaint: Unspecified Stated complaint: feel real clammy Time Seen by Provider: 03/23/25 13:06 History of Present Illness HPI narrative: 69-year-old female present to the emergency department for evaluation for feeling clammy and fatigue over the last 2 weeks. Patient did have a knee replacement on 03/03 states that she has had improved function of the knee and has no worsening pain of the knee. Patient denies any nausea vomiting diarrhea coughs colds or fevers. Patient denies any falls or injuries. Patient states since 03/14 she has felt clammy but is unable to provide any other description for this. Patient does have borderline diabetes, stage 3 kidney disease. Related Data Home Medications ?Medication ?Instructions ?Recorded ?Confirmed ?Last Taken ?Type atorvastatin 40 mg tablet (Lipitor) 40 mg PO DAILY 04/21/20 03/01/25 02/28/25 History lorazepam 2 mg tablet (Ativan) 2 mg PO TID 04/21/20 03/01/25 03/01/25 History fenofibric acid (choline) 135 mg 135 mg PO DAILY 08/29/21 03/01/25 02/28/25 History capsule,delayed release (Trilipix) empagliflozin 10 mg tablet 10 mg PO DAILY 08/13/24 03/01/25 02/28/25 History (Jardiance) famotidine 20 mg tablet (Pepcid AC) 20 mg PO DAILY 08/13/24 03/01/25 02/28/25 History levothyroxine 50 mcg tablet 50 mcg PO DAILY 08/13/24 03/01/25 03/01/25 History (Synthroid) lisinopril 20 mg tablet 20 mg PO DAILY 08/13/24 03/01/25 02/28/25 History aripiprazole 5 mg tablet 5 mg PO HS 02/11/25 03/01/25 02/28/25 History aspirin 325 mg tablet 325 mg PO DAILY 02/11/25 03/01/25 02/23/25 History cholecalciferol (vitamin D3) 50 2,000 unit PO ONCE 02/11/25 03/01/25 02/26/25 History mcg (2,000 unit) capsule cyanocobalamin (vitamin B-12) 1,000 mcg PO DAILY 02/11/25 03/01/25 02/26/25 History 1,000 mcg capsule escitalopram oxalate 20 mg tablet 20 mg PO QAM 02/11/25 03/01/25 03/01/25 History tramadol 50 mg tablet 50 mg PO Q8H PRN pain 02/11/25 02/11/25 Unknown History trazodone 100 mg tablet 200 mg PO QHS 02/11/25 03/01/25 02/28/25 History venlafaxine 150 mg 150 mg PO QAM 02/11/25 03/01/25 03/01/25 History capsule,extended release 24 hr (Effexor XR) Allergies Allergy/AdvReac Type Severity Reaction Status Date / Time No Known Allergies Allergy Verified 03/23/25 13:04 Review of Systems Review of Systems: All systems reviewed & are unremarkable except as noted in HPI and below PMFSH Past Medical History Medical History Dysphagia Pruritic disorder Chronic kidney disease Coronary atherosclerosis Pure hypercholesterolemia Vitamin D deficiency Hypothyroid GERD (gastroesophageal reflux disease) Hypertension Hyperlipidemia Depression Anxiety Surgical History Surgical History History of cataract extraction (~05/2023) [facility] History of total left knee replacement (~2016) Dr. Coats Family History Family History Father Heart disease Acute myocardial infarction Mother Heart disease Social History Social History Smoking packs per day: 1 Smoking cigarettes per day: 20.0 Years smoked: 10 Smoking pack-years: 10.00 Smoking status: Former smoker Tobacco type: cigarettes Smoking end date: 12/20/19 Alcohol intake: never Alcohol use details: cleaned for 7 years Substance use: current Substance use type: marijuana Last use: 02/22/25 Do You Feel Safe in your Home?: Yes Lack of Transportation: No Lack of Food: Never True Current Housing: I Have Housing Concerned About Future Housing: No Difficulty Paying Gas/Electric Bills: No Difficulty Paying for Meds: No Currently Unemployed: No Education: Decline to Answer Difficulty w/ Childcare or Family Care: No Living arrangements: with family Additional living arrangements comments: JOSE Occupation/Education: other Additional occupation/education comments: Disable Gender identity (if verbalized by the patient): Female Spiritual care concerns: No Exam Narrative: APPEARANCE: Well appearing, no pain, no distress, well-nourished. HEAD: normocephalic, atraumatic. EYES: PERRLA/EOMI, conjunctivae clear. NOSE: Normal no drainage EARS:TMS clear with good light reflex. THROAT: Pharynx clear, no exudate. NECK: Supple. No adenopathy, no masses. RESPIRATORY: Airway patent, respirations nonlabored. Clear to auscultation bilaterally, no rales, rhonchi, wheezing. CARDIOVASCULAR: Regular rate and rhythm without murmurs rubs or gallops. ABDOMINAL: Soft, nontender, nondistended, normal bowel sounds MUSCULOSKELETAL: Moves all extremities. Strength/ROM intact, No edema, No calf tenderness. Well-healing surgical incision over right knee with no purulence erythema NEURO: Alert. Cranial nerves II through XII intact. Good gait. Good coordination SKIN: Warm, dry. Normal Color Course Vital Signs Vital signs: Vital Signs Pulse Rate 77 03/23/25 12:53 Respiratory Rate 14 03/23/25 12:53 Blood Pressure 115/72 03/23/25 12:53 Pulse Oximetry 99 03/23/25 12:53 Oxygen Delivery Room Air 03/23/25 12:53 Pulse Rate 80 03/23/25 16:34 Respiratory Rate 13 03/23/25 16:34 Blood Pressure 132/68 03/23/25 16:34 Pulse Oximetry 98 03/23/25 16:34 Oxygen Delivery Room Air 03/23/25 12:53 Medical Decision Making [facility] Narrative Medical decision making narrative: 69-year-old female presents emergency department for evaluation for intermittent clamminess. Patient does take medications for hypertension but states she has had some potential weight loss. Patient states that her blood pressures have been the. Patient was mildly orthostatic. Patient was treated with IV fluids in the emergency department did feel improved. Patient was encouraged to closely monitor her blood pressure and documented is patient for having follow-up with her case management associate next week. Differential Diagnosis Differential Diagnosis: Hypertension, dehydration, COVID, RSV, influenza, urinary tract infection, sepsis Vital Signs Vital Signs: Vital Signs Pulse Rate 77 03/23/25 12:53 Respiratory Rate 14 03/23/25 12:53 Blood Pressure 115/72 03/23/25 12:53 Pulse Oximetry 99 03/23/25 12:53 Oxygen Delivery Room Air 03/23/25 12:53 Pulse Rate 80 03/23/25 16:34 Respiratory Rate 13 03/23/25 16:34 Blood Pressure 132/68 03/23/25 16:34 Pulse Oximetry 98 03/23/25 16:34 Oxygen Delivery Room Air 03/23/25 12:53 Lab Data Lab results reviewed: Yes I reviewed the patient's lab results. 03/23/25 13:38 03/23/25 13:38 Labs: Lab Results 03/23/25 03/23/25 Range/Units 13:38 14:04 WBC 6.6 (4.5-10.0) K/mm3 RBC 4.01 L (4.2-5.4) M/mm3 Hgb 13.1 (12.0-15.0) g/dL Hct 39.1 (37.0-47.0) % MCV 97.5 (80-100) fl MCH 32.7 (26-34) pg MCHC 33.5 (32-36) g/dl RDW 12.9 (11.5-14.5) % Plt Count 301 (150-375) k/mm3 MPV 8.8 (7.4-10.4) fl Immature Gran % (Auto) 0.6 H (0-0.5) % Neut % (Auto) 77.9 H (45.5-73.1) % Lymph % (Auto) 12.7 L (18.3-44.2) % Hawkins % (Auto) 7.8 (2.6-8.5) % Eos % (Auto) 0.5 (0-4.4) % Baso % (Auto) 0.5 (0.2-1.2) % Lymph # (Auto) 0.84 L (0.9-3.2) K/mm3 Hawkins # (Auto) 0.5 (0.1-0.6) K/mm3 Eos # (Auto) 0.0 (0-0.3) K/mm3 Baso # (Auto) 0.0 (0.0-0.1) K/mm3 Abs Immat Gran (auto) 0.04 H (0.00-0.031) K/mm3 Absolute Neuts (auto) 5.2 (1.3-6.7) K/mm3 Absolute Nucleated RBC 0.000 (0.0-0.012) K/mm3 Nucleated RBC % 0.0 (0.0-0.2) % Sodium 129 L (137-145) mmol/L Potassium 4.2 (3.4-5.0) mmol/L Chloride 98 (98-107) mmol/L Carbon Dioxide 20 L (22-30) mmol/L Anion Gap 11 (4-12) mmol/L BUN 15 D (7-17) mg/dL Creatinine 1.16 H (0.7-1.0) mg/dL Estim Creat Clear Calc 42 ml/min Estimated GFR 47 L (59 - ) Glucose 121 H (65-110) mg/dL Lactic Acid 1.4 (0.7-2.0) mmol/L Calcium 9.7 (8.4-10.2) mg/dL Total Bilirubin 0.8 (0.2-1.3) mg/dL AST 36 (14-36) U/L ALT 22 (6-35) U/L Alkaline Phosphatase 59 (38-126) U/L Total Protein 7.3 (6.3-8.2) g/dL Albumin 4.2 (3.5-5.1) g/dL Urine Color Yellow (Yellow) Urine Appearance Clear (Clear) Urine pH 8.0 (5.0-9.0) Ur Specific Hudson 1.019 (1.001-1.035) Urine Protein Negative (Negative) mg/dL Urine Glucose (UA) 3+ H (Negative) mg/dL Urine Ketones Negative (Negative) mg/dL Ur Blood (Man) Negative (Negative) Urine Nitrate Negative (Negative) Urine Bilirubin Negative (Negative) Urine Urobilinogen 1.0 (<2.0) mg/dL Leukocyte Esterase Rfl Negative (Negative) AARON/UL Discharge Plan Discharge Clinical Impression: Orthostatic hypotension Patient Disposition: Home Condition: Stable Instructions: Antibiotic Form, Hypotension (DC) Additional Instructions: Check your blood pressure at least once daily under the same conditions and bring these values to your case management associate next week. Patient Language: Dutch Prescriptions: No Action fenofibric acid (choline) [Trilipix] 135 mg Capsule,Delayed Release(Dr/Ec) 135 mg PO DAILY atorvastatin [Lipitor] 40 mg Tablet 40 mg PO DAILY lorazepam [Ativan] 2 mg Tablet 2 mg PO TID Jardiance 10 mg tablet 10 mg PO DAILY Patient Comments: QAM, ORDERED BY MIXER DRIVER lisinopril 20 mg tablet 20 mg PO DAILY Patient Comments: QAM famotidine [Pepcid AC] 20 mg tablet 20 mg PO DAILY levothyroxine [Synthroid] 50 mcg tablet 50 mcg PO DAILY Patient Comments: QAM aripiprazole 5 mg tablet 5 mg PO HS aspirin 325 mg tablet 325 mg PO DAILY escitalopram oxalate 20 mg tablet 20 mg PO QAM trazodone 100 mg tablet 200 mg PO QHS venlafaxine [Effexor XR] 150 mg capsule,extended release 24hr 150 mg PO QAM tramadol 50 mg tablet 50 mg PO Q8H PRN (Reason: pain) cholecalciferol (vitamin D3) 50 mcg (2,000 unit) capsule 2,000 unit PO ONCE cyanocobalamin (vitamin B-12) 1,000 mcg capsule 1,000 mcg PO DAILY prednisone 5 mg tablet 5 mg PO DAILY 21 Days Qty: 21 0RF oxycodone-acetaminophen 5-325 mg tablet 1 - 2 tablet PO Q4-6H PRN (Reason: pain) 7 Days Qty: 30 0RF Follow-up/Referrals: Saleem,Leo Valentin MD [Primary Care Provider] -
[2025-03-23 13:46] LABS: Basophils Percent Auto 0.5 % (0.2-1.2); Eosinophils Percent Auto 0.5 % (0-4.4); Hematocrit 39.1 % (37.0-47.0); Hemoglobin 13.1 g/dL (12.0-15.0); Immature Granulocyte Absolute 0.04 K/mm3 (0.00-0.031); Immature Granulocyte Percent A 0.6 % (0-0.5); Lymphocytes Absolute Auto 0.84 K/mm3 (0.9-3.2); Lymphocytes Percent Auto 12.7 % (18.3-44.2); Mean Corpuscular HGB Conc 33.5 g/dl (32-36); Mean Corpuscular Hemoglobin 32.7 pg (26-34); Mean Corpuscular Volume 97.5 fl (80-100); Mean Platelet Volume 8.8 fl (7.4-10.4); Monocytes Absolute Auto 0.5 K/mm3 (0.1-0.6); Monocytes Percent Auto 7.8 % (2.6-8.5); Neutrophils Absolute Auto 5.2 K/mm3 (1.3-6.7); Neutrophils Percent Auto 77.9 % (45.5-73.1); Platelet Count Result 301 k/mm3 (150-375); Red Blood Count 4.01 M/mm3 (4.2-5.4); Red Cell Distribution Width 12.9 % (11.5-14.5); White Blood Count 6.6 K/mm3 (4.5-10.0)
[2025-03-23 14:00] LABS: Lactic Acid Reflex 1.4 mmol/L (0.7-2.0)
[2025-03-23 14:10] LABS: Add Urine Microscopic? NO; Appearance Urine Clear (Clear); Bilirubin Urine Negative (Negative); Blood Urine Negative (Negative); Color Urine Yellow (Yellow); Glucose Urine UA 3+ mg/dL (Negative); Ketones Urine Negative (Negative); Leukocyte Esterase Ur Negative LEU/UL (Negative); Nitrate Urine Negative (Negative); Protein Urine Negative (Negative); Specific Grav Ur 1.019 (1.001-1.035)
[2025-03-23 14:11] LABS: Alanine Aminotransferase 22 U/L (6-35); Albumin Level 4.2 g/dL (3.5-5.1); Alkaline Phosphatase 59 U/L (38-126); Anion Gap 11 mmol/L (4-12); Aspartate Amino Transferase 36 U/L (14-36); Bilirubin,Total 0.8 mg/dL (0.2-1.3); Blood Urea Nitrogen 15 mg/dL (7-17); Calcium 9.7 mg/dL (8.4-10.2); Carbon Dioxide 20 mmol/L (22-30); Chloride 98 mmol/L (98-107); Estimated CRCL calculation 42 ml/min; Estimated Glomerular Filt Rate 47; Glucose 121 mg/dL (65-110); Potassium 4.2 mmol/L (3.4-5.0); Sodium 129 mmol/L (137-145); Total Protein 7.3 g/dL (6.3-8.2)
[2025-03-23 14:28] VITALS: BP 120/67; BP 130/75; PULSE 78; PULSE 87
[2025-03-23 14:30] VITALS: BP 117/73; PULSE 84
[2025-03-23] MEDS: LACTATED RINGERS 1,000 ML 999 ML IV CONT (15:12)
[2025-03-23 16:34] VITALS: BP 132/68; PULSE 80; RESP 13; O2SAT 98
== END 2025-03-23 16:36 | disposition home or self-care (01) ==
PROVIDERS: Emergency Provider Emergency Medicine; PCP Internal Medicine
DX: I95.1 Orthostatic hypotension (principal); I12.9 Hypertensive chronic kidney disease with stage 1 through stage 4 chronic kidney disease, or unspecified chronic kidney disease; N18.30 Chronic kidney disease, stage 3 unspecified; R73.03 Prediabetes; I25.10 Atherosclerotic heart disease of native coronary artery without angina pectoris; E78.00 Pure hypercholesterolemia, unspecified; K21.9 Gastro-esophageal reflux disease without esophagitis; F41.9 Anxiety disorder, unspecified; F32.A Depression, unspecified; Z96.652 Presence of left artificial knee joint; Z96.1 Presence of intraocular lens; Z98.42 Cataract extraction status, left eye; Z98.41 Cataract extraction status, right eye; Z79.84 Long term (current) use of oral hypoglycemic drugs; Z79.899 Other long term (current) drug therapy; Z79.82 Long term (current) use of aspirin; R94.31 Abnormal electrocardiogram [ECG] [EKG]
CPT/HCPCS: 36415; 80053; 81003; 83605; 85025; 93005; 96360; 99283; J7120